=== PATIENT | female | born 1975 | race Caucasian/White ===

== ENCOUNTER 2020-08-23 09:51 | Emergency (ER) | payer MEDICAID, SELFPAY ==
--- NOTE | ~2020-08-23 | XR_ITS ---
EXAMINATION: XR CHEST CLINICAL INFORMATION: Chest symptoms, COVID+ COMPARISON: 2 view chest 12/09/2010 TECHNIQUE: Portable upright AP view of the chest was obtained. FINDINGS: There is coarsening bronchovascular markings right chest with scattered predominantly bronchovascular groundglass opacities. No confluent airspace consolidation. No pleural effusion. The heart is within normal size. The vascularity is normal. The visualized hilar and mediastinal contours and bony structures are unremarkable. No pneumothorax or definite pneumomediastinum. XR/XR chest 1V IMPRESSION: Scattered groundglass opacities right chest which may be associated with atypical/viral pneumonia. No effusion.
[2020-08-23 10:06] VITALS: BP 140/77; PULSE 85; RESP 20; TEMP 37.7; O2SAT 95; BMI 40.2
--- NOTE | 2020-08-23 10:55 | ECG_ITS ---
Test Reason : SHORTNESS OF BREATH Blood Pressure : / mmHG Vent. Rate : 082 BPM Atrial Rate : 082 BPM P-R Int : 156 ms QRS Dur : 082 ms QT Int : 330 ms P-R-T Axes : 058 004 088 degrees QTc Int : 385 ms Normal sinus rhythm Biatrial enlargement Left ventricular hypertrophy Nonspecific T wave abnormality Abnormal ECG When compared to the previous EKG of No significant changes seen Referred By: Gabby Barros Electronically Signed By:AUGUSTINE LUCERO MD
[2020-08-23] MEDS: Acetaminophen 325 MG TABLET 975 MG PO (11:48)
[2020-08-23] MEDS: 0.9 % Sodium Chloride 1,000 ML 999 ML IVCONT (11:49)
[2020-08-23 11:53] LABS: Hematocrit 38.8 % (37-47); Hemoglobin 12.2 g/dl (12.0-16.0); Imm Gran Abs Auto 0.01 X10*3/uL (0.00-0.03); Imm Gran Pct Auto 0.3 % (0.0-0.4); Lymphocytes Absolute Auto 0.5 X10*3/uL (1.2-4.9); Lymphocytes Percent Auto 13.3 % (20-40); MANUAL DIFF FLAG SCAN; Mean Corpuscular HGB Conc 31.4 g/dl (31.0-35.0); Mean Corpuscular Hemoglobin 28.1 pg (27.0-33.0); Mean Corpuscular Volume 89.4 fL (80-98); Mean Platelet Volume 12.4 fL (9.4-12.3); Monocytes Absolute Auto 0.3 X10*3/uL (0.1-1.2); Neutrophils Absolute Auto 3.2 X10*3/uL (2.0-8.3); Neutrophils Percent Auto 79.4 % (45-73); Platelet Count 179 X10*3/uL (160-400); Red Blood Count 4.34 X10*6/uL (4.20-5.50); Red Cell Distribution Width 13.5 % (11.0-16.0); SCAN SMEAR FLAG 1
[2020-08-23 12:02] LABS: INTERNATIONAL NORM RATIO 1.2 (0.9-1.1); Prothrombin Time 14.7 SEC (10.8-13.0)
[2020-08-23 12:09] LABS: D Dimer < 200 NG/ML
[2020-08-23 12:18] LABS: SLIDE REVIEW VERIFIED
[2020-08-23 12:28] LABS: B Type Natriuretic Peptide 25 pg/mL (<100)
[2020-08-23 12:30] LABS: Alanine Aminotransferase 38 U/L (0-31); Albumin Level 4.3 g/dL (3.5-5.0); Alkaline Phosphatase 57 U/L (39-117); Aspartate Amino Transferase 46 U/L (5-31); Bilirubin Direct 0.2 mg/dL (0.0-0.5); Bilirubin Total 0.4 mg/dL (0.0-1.0); Magnesium 2.2 mg/dL (1.6-2.6); Total Protein 8.4 g/dL (6.5-8.0)
[2020-08-23 12:34] LABS: Alanine Aminotransferase 38 U/L (0-31); Albumin Level 4.3 g/dL (3.5-5.0); Alkaline Phosphatase 58 U/L (39-117); Anion Gap 12 (12-20); Aspartate Amino Transferase 47 U/L (5-31); Bilirubin Total 0.4 mg/dL (0.0-1.0); Blood Urea Nitrogen 8 mg/dL (9-16); Calcium 9.1 mg/dL (8.4-10.2); Carbon Dioxide 27 mmol/L (22-29); Chloride 100 mmol/L (96-108); Creatinine Clr Calc Pharmacy 104.6; Estimated Glomerular Filt Rate > 60; Glucose Random 119 mg/dL (60-115); Potassium 4.3 mmol/L (3.3-5.1); Sodium 135 mmol/L (135-145); Total Protein 8.4 g/dL (6.5-8.0)
[2020-08-23 12:59] LABS: Procalcitonin 0.06 ng/mL
[2020-08-23 13:24] LABS: COVID-19 Test Positive (Negative)
--- NOTE | 2020-08-23 13:49 | ED_ITS ---
HPI - URI/Sore Throat General Chief Complaint: General Medical <CAYLA Garcia - Last Filed: 08/23/20 14:42> Stated Complaint: covid check <CAYLA Garcia - Last Filed: 08/23/20 14:42> Time Seen by Provider: 08/23/20 10:28 <CAYLA Garcia - Last Filed: 08/23/20 14:42> Source: patient <CAYLA Garcia Last Filed: 08/23/20 14:42> Mode of arrival: ambulatory <CAYLA Garcia - Last Filed: 08/23/20 14:42> Limitations: language barrier ([place]adian-speaking) <CAYLA Garcia Last Filed: 08/23/20 14:42> History of Present Illness HPI Narrative: 45-year-old female with a past medical history of migraine headaches presenting to the ED with complaints of intermittent migraine headaches that she describes as pressure and sensation which is similar to her prior migraine headaches, body aches and subjective fevers for the past few days worse today. Reports that her was positive for COVID and yesterday of possible COVID or a pulmonary embolism/[place]. She is concerned due to she is also having shortness of breath although does not have a cough. Denies any dizziness, lightheadedness, changes in vision, nasal congestion/runny nose, sore throat, chest pain, orthopnea, back pain, nausea/vomiting, abdominal pain, diarrhea, constipation, black or bloody stools, dysuria, hematuria, abnormal vaginal discharge or any other symptoms complaints or concerns at this time. <CAYLA Garcia - Last Filed: 08/23/20 14:42> Related Data Home Medications: Home Medications Medication Instructions Recorded Confirmed ascorbic acid (vitamin C) 1 tab PO DAILY 08/26/20 08/26/20 ergocalciferol (vitamin D2) 1 cap PO QWEEK 08/26/20 08/26/20 methadone 118 mg PO DAILY 08/26/20 08/26/20 methadone [Methadone Intensol] 118 mg PO DAILY 08/27/20 08/27/20 Previous Rx's Medication Instructions Recorded acetaminophen [Tylenol Extra 1,000 mg PO QID PRN #14 tab 08/23/20 Strength] ibuprofen 800 mg PO Q8H PRN #14 tab 08/23/20 dexamethasone [Decadron] 6 mg PO DAILY #3 tab 08/31/20 <CAYLA Garcia Last Filed: 08/23/20 14:42> Allergies/Adverse Reactions: Allergies Allergy/AdvReac Type Severity Reaction Status Date / Time No Known Allergies Allergy Unknown Unverified 01/12/20 16:03 <CAYLA Garcia - Last Filed: 08/23/20 14:42> Review of Systems Review of Systems: Constitutional : + Fvers, + Chills, + Fatigues, + Malaise, No Weight loss, No Night Sweats ENT/Mouth : No Hearing loss, No Ear Pain, No Nasal Congestion, No Sinus Pain, No Hoarseness, No sore throat, No Rhinorrhea, No Swallowing Difficulty Eyes: No Eye Pain, No Swelling, No Redness, No Foreign Body, No Discharge, No Vision Changes Cardiovascular : + SOB, No Chest Pain, + Dyspnea on Exertion, No Orthopnea, No Edema, No Palpitations Respiratory : + SOB, No Cough, No Sputum, No Wheezing, No Smoke Exposure Gastrointestinal : No Nausea, No Vomiting, No Diarrhea, No Constipation, No abdominal Pain, No Hematochezia, No Melena Genitourinary : no irregular bleeding, No Dysuria, No Urinary Frequency, No Hematuria, No Urinary Incontinence, No Urgency, No Flank Pain, No Urinary Flow Changes, No Hesitancy Musculoskeletal : No joint pain, No Myalgias, No Joint Swelling Skin : No Skin Lesions, No rash Neuro : No Weakness, No Numbness, No Paresthesias, No Loss of Consciousness, No Dizziness, No Headache Psych : + Anxiety, No Panic, No Depression, No SI/HI/AH/VH, No Social Issues, Heme/Lymph: No Bruising, No Bleeding,No Lymphadenopathy Endocrine : No Polyuria, No Polydipsia, No Temperature Intolerance <CAYLA Garcia Last Filed: 08/23/20 14:42> Yes all other systems are reviewed and are negative <CAYLA Garcia Last Filed: 08/23/20 14:42> [facility] Past Medical History Attestation statement: The following information was validated with the patient. <CAYLA Garcia Last Filed: 08/23/20 14:42> Surgical History: Surgical History History of cholecystectomy Hx of section <CAYLA Garcia - Last Filed: 08/23/20 14:42> Social History Social History: Social History Household Members: Children Household Members Other:: Two children, recently Housing: Apartment Do you presently have visiting nurse or other home services: No Smoking Status: Never smoker Second Hand Smoke Exposure: No Use of substances other than those prescribed or required for medical reasons: No Substance Use Type Other:: methadone Currently Displaying Signs/Symptoms of Drug Intoxication Withdrawal: No Any prior treatment program specific to substance use: No Have you been hit, kicked, punched, or otherwise hurt by someone within the past year? If so, by whom?: No Do you feel safe in your current relationship?: Yes Is there a partner from a previous relationship who is making you feel unsafe now?: No Are you made to feel afraid or neglected: No Spiritual Healthcare Practices: Zoroastrianism Advance Directives: No Advance Directives Information Provided: No Do you have thoughts of harming others: None Do you have a plan to hurt others: No Plan Recently lost weight without trying: No Eating poorly because of decreased appetite: No Nutrition Risks: No Nutritional Risk Patient : No : No Poor oral hygiene: No service: No Current occupational status: disabled <CAYLA Garcia - Last Filed: 08/23/20 14:42> Physical Exam Vital Signs: Vital Signs: Last Vital Signs Temp 99.1 F 08/23/20 14:02 Pulse 85 08/23/20 10:06 Resp 20 08/23/20 10:06 BP 140/77 H 08/23/20 10:06 Pulse Ox 95 08/23/20 10:06 Body Mass Index 40.2 vital signs have been reviewed as normal and appeared to be correct. Blood pressure normal. Heart rate normal. Respiration rate normal. Temperature normal. Oxygen saturation normal. <CAYLA Garcia - Last Filed: 08/23/20 14:42> Vital Signs: Last Vital Signs Temp 99.1 F 08/23/20 14:02 Pulse 85 08/23/20 10:06 Resp 20 08/23/20 10:06 BP 140/77 H 08/23/20 10:06 Pulse Ox 95 08/23/20 10:06 Body Mass Index 40.2 <Kristofer Ricadro MD - Last Filed: 09/08/20 01:35> Appearance: Alert. Oriented X3. No acute distress. Head: Normal external exam. Normocephalic. Eyes: PERRLA. EOMI. Conjunctiva and sclera normal. Eyelids normal. ENT: Pharynx normal. Uvula midline. Moist mucous membranes. No trismus noted. No drooling noted. No muffled voice noted. Neck: Normal inspection. Neck supple. FROM. No adenopathy. No meningeal signs. CVS: Normal heart rate and rhythm. Heart sound normal. No murmurs noted. Pulses normal throughout. Respiratory: No respiratory distress. Painless inspiration. Breath sounds normal. No wheezes/rales/rhonchi noted. Chest nontender. No accessory muscle usage noted or decreased air movement noted. Abdomen: Soft and nontender. Nondistended. No guarding. No rigidity. Bowel sounds normal in all 4 quadrants. No distention noted. No organomegaly noted. No visible injury noted. No rebound tenderness. Negative Rovsing sign. Negative obturator's sign. Negative psoas sign. Negative Leon sign. Back: No CVA tenderness. Full range of motion noted. Skin: Skin warm and dry. Normal skin color. Normal skin turgor. No rashes/lesions/lacerations noted. Extremities: No lower extremity edema noted. Extremities exhibit normal range of motion. Extremities nontender. Neuro: Oriented X 3. No motor deficit. No sensory deficit. Reflexes normal. Normal steady gait. <CAYLA Garcia - Last Filed: 08/23/20 14:42> Course Course Course Narrative: 45-year-old female with a history of migraine headaches presenting to the ED with complaints of subjective fevers, generalized fatigue, malaise, myalgias, and shortness of breath/dyspnea on exertion for the past few days worse today. She tested negative for COVID a few days ago. Denies any other symptoms complaints or concerns. Her just a COVID yesterday possibly an [place] versus pulmonary embolism therefore patient is concern from pulmonary embolism. - on exam patient is alert and oriented x3. Not in any acute distress. Vital signs are stable and within normal limits patient is walking oxygen saturation was 92% on room air. Lungs clear to auscultation. CV RRR. Abdomen is soft nontender. Calf is nontender. No lower extremity edema is noted. - labs obtained and patient with 0 white blood cell count at 4000. AST/ALT mildly 47/38. CRP is 5.40. Total protein 8.4. Otherwise all other labs are within normal limits. D-dimer is negative. Patient unfortunately is testing positive for COVID. EKG is sinus rhythm with biatrial enlargement with left ventricular hypertrophy with nonspecific T-wave abnormalities no acute ischemic changes are noted. - patient received resources from the Care Team she denies any SI/HI/auditory visualizations thoughts of self-injury just very anxious from what she went through with her yesterday. Will DC home with antibiotics and symptomatic treatment along with instructions to return if any new or worsening symptoms and to monitor her oxygen levels especially with walking over the next few days and to return if her oxygen starts going below 90% on room air. Patient understands agrees with this plan. <CAYLA Garcia - Last Filed: 08/23/20 14:42> I have reviewed the chart <Kristofer Ricardo MD - Last Filed: 09/08/20 01:35> MDM - URI/Sore Throat Medical Records Attestation: I reviewed the patient's medical records. <CAYLA Garcia - Last Filed: 08/23/20 14:42> Lab Data Attestation: I reviewed the patient's lab results. <CAYLA Garcia - Last Filed: 08/23/20 14:42> Result diagrams: : 08/23/20 11:42 08/23/20 11:42 <CAYLA Garcia - Last Filed: 08/23/20 14:42> Labs: Lab Results 08/23/20 08/23/20 08/23/20 Range/Units 11:42 11:42 11:42 WBC 4.0 L (4.8-10.8) X10*3/uL RBC 4.34 (4.20-5.50) X10*6/uL Hgb 12.2 (12.0-16.0) g/dl Hct 38.8 (37-47) % MCV 89.4 (80-98) fL MCH 28.1 (27.0-33.0) pg MCHC 31.4 (31.0-35.0) g/dl RDW 13.5 (11.0-16.0) % Plt Count 179 (160-400) X10*3/uL MPV 12.4 H (9.4-12.3) fL Immature Gran % (Auto) 0.3 (0.0-0.4) % Neut % (Auto) 79.4 H (45-73) % Lymph % (Auto) 13.3 L (20-40) % [place] % (Auto) 7.0 (2-11) % Eos % (Auto) 0.0 (0-4) % Baso % (Auto) 0.0 (0-2) % Lymph # (Auto) 0.5 L (1.2-4.9) X10*3/uL [place] # (Auto) 0.3 (0.1-1.2) X10*3/uL Eos # (Auto) 0.0 (0.0-0.4) X10*3/uL Baso # (Auto) 0.0 (0.0-0.2) X10*3/uL Abs Immat Gran (auto) 0.01 (0.00-0.03) X10*3/uL Absolute Neuts (auto) 3.2 (2.0-8.3) X10*3/uL Absolute Nucleated RBC 0.000 (0.0-0.012) X10*3/uL Nucleated RBC % (auto) 0.0 (0.0-0.2) /100WBC Smear Tech's Comments VERIFIED Hold Purple Top SEE NOTE PT 14.7 H (10.8-13.0) SEC INR 1.2 H (0.9-1.1) D-Dimer < 200 NG/ML Sodium (135-145) mmol/L Potassium (3.3-5.1) mmol/L Chloride (96-108) mmol/L Carbon Dioxide (22-29) mmol/L Anion Gap (12-20) BUN (9-16) mg/dL Creatinine (0.5-1.4) mg/dL Estim Creat Clear Calc Estimated GFR Random Glucose (60-115) mg/dL Calcium (8.4-10.2) mg/dL Magnesium (1.6-2.6) mg/dL Ferritin (10-250) ng/mL Total Bilirubin (0.0-1.0) mg/dL Direct Bilirubin (0.0-0.5) mg/dL AST (5-31) U/L ALT (0-31) U/L Alkaline Phosphatase (39-117) U/L Lactate Dehydrogenase (122-220) U/L C-Reactive Protein (< or = 0.50) mg/dL B-Natriuretic Peptide (<100) pg/mL Total Protein (6.5-8.0) g/dL Albumin (3.5-5.0) g/dL Procalcitonin ng/mL Beta HCG, Quant mIU/mL COVID-19 ([facility]) (Negative) COVID-19 Clin Com 08/23/20 08/23/20 08/23/20 Range/Units 11:42 11:42 11:42 WBC (4.8-10.8) X10*3/uL RBC (4.20-5.50) X10*6/uL Hgb (12.0-16.0) g/dl Hct (37-47) % MCV (80-98) fL MCH (27.0-33.0) pg MCHC (31.0-35.0) g/dl RDW (11.0-16.0) % Plt Count (160-400) X10*3/uL MPV (9.4-12.3) fL Immature Gran % (Auto) (0.0-0.4) % Neut % (Auto) (45-73) % Lymph % (Auto) (20-40) % [place] % (Auto) (2-11) % Eos % (Auto) (0-4) % Baso % (Auto) (0-2) % Lymph # (Auto) (1.2-4.9) X10*3/uL [place] # (Auto) (0.1-1.2) X10*3/uL Eos # (Auto) (0.0-0.4) X10*3/uL Baso # (Auto) (0.0-0.2) X10*3/uL Abs Immat Gran (auto) (0.00-0.03) X10*3/uL Absolute Neuts (auto) (2.0-8.3) X10*3/uL Absolute Nucleated RBC (0.0-0.012) X10*3/uL Nucleated RBC % (auto) (0.0-0.2) /100WBC Smear Tech's Comments Hold Purple Top PT (10.8-13.0) SEC INR (0.9-1.1) D-Dimer NG/ML Sodium 135 (135-145) mmol/L Potassium 4.3 (3.3-5.1) mmol/L Chloride 100 (96-108) mmol/L Carbon Dioxide 27 (22-29) mmol/L Anion Gap 12 (12-20) BUN 8 L (9-16) mg/dL Creatinine 0.75 (0.5-1.4) mg/dL Estim Creat Clear Calc 104.6 Estimated GFR > 60 Random Glucose 119 H (60-115) mg/dL Calcium 9.1 (8.4-10.2) mg/dL Magnesium 2.2 (1.6-2.6) mg/dL Ferritin 161 (10-250) ng/mL Total Bilirubin 0.4 0.4 (0.0-1.0) mg/dL Direct Bilirubin 0.2 (0.0-0.5) mg/dL AST 46 H 47 H (5-31) U/L ALT 38 H 38 H (0-31) U/L Alkaline Phosphatase 57 58 (39-117) U/L Lactate Dehydrogenase 331 H (122-220) U/L C-Reactive Protein (< or = 0.50) mg/dL B-Natriuretic Peptide 25 (<100) pg/mL Total Protein 8.4 H 8.4 H (6.5-8.0) g/dL Albumin 4.3 4.3 (3.5-5.0) g/dL Procalcitonin ng/mL Beta HCG, Quant < 2 mIU/mL COVID-19 ([facility]) (Negative) COVID-19 Clin Com 08/23/20 08/23/20 08/23/20 Range/Units 11:42 11:42 13:08 WBC (4.8-10.8) X10*3/uL RBC (4.20-5.50) X10*6/uL Hgb (12.0-16.0) g/dl Hct (37-47) % MCV (80-98) fL MCH (27.0-33.0) pg MCHC (31.0-35.0) g/dl RDW (11.0-16.0) % Plt Count (160-400) X10*3/uL MPV (9.4-12.3) fL Immature Gran % (Auto) (0.0-0.4) % Neut % (Auto) (45-73) % Lymph % (Auto) (20-40) % [place] % (Auto) (2-11) % Eos % (Auto) (0-4) % Baso % (Auto) (0-2) % Lymph # (Auto) (1.2-4.9) X10*3/uL [place] # (Auto) (0.1-1.2) X10*3/uL Eos # (Auto) (0.0-0.4) X10*3/uL Baso # (Auto) (0.0-0.2) X10*3/uL Abs Immat Gran (auto) (0.00-0.03) X10*3/uL Absolute Neuts (auto) (2.0-8.3) X10*3/uL Absolute Nucleated RBC (0.0-0.012) X10*3/uL Nucleated RBC % (auto) (0.0-0.2) /100WBC Smear Tech's Comments Hold Purple Top PT (10.8-13.0) SEC INR (0.9-1.1) D-Dimer NG/ML Sodium (135-145) mmol/L Potassium (3.3-5.1) mmol/L Chloride (96-108) mmol/L Carbon Dioxide (22-29) mmol/L Anion Gap (12-20) BUN (9-16) mg/dL Creatinine (0.5-1.4) mg/dL Estim Creat Clear Calc Estimated GFR Random Glucose (60-115) mg/dL Calcium (8.4-10.2) mg/dL Magnesium (1.6-2.6) mg/dL Ferritin (10-250) ng/mL Total Bilirubin (0.0-1.0) mg/dL Direct Bilirubin (0.0-0.5) mg/dL AST (5-31) U/L ALT (0-31) U/L Alkaline Phosphatase (39-117) U/L Lactate Dehydrogenase (122-220) U/L C-Reactive Protein 5.40 H (< or = 0.50) mg/dL B-Natriuretic Peptide (<100) pg/mL Total Protein (6.5-8.0) g/dL Albumin (3.5-5.0) g/dL Procalcitonin 0.06 ng/mL Beta HCG, Quant mIU/mL COVID-19 ([facility]) Positive A (Negative) COVID-19 Clin Com See Note <CAYLA Garcia - Last Filed: 08/23/20 14:42> Lab Results 08/23/20 08/23/20 08/23/20 Range/Units 11:42 11:42 11:42 WBC 4.0 L (4.8-10.8) X10*3/uL RBC 4.34 (4.20-5.50) X10*6/uL Hgb 12.2 (12.0-16.0) g/dl Hct 38.8 (37-47) % MCV 89.4 (80-98) fL MCH 28.1 (27.0-33.0) pg MCHC 31.4 (31.0-35.0) g/dl RDW 13.5 (11.0-16.0) % Plt Count 179 (160-400) X10*3/uL MPV 12.4 H (9.4-12.3) fL Immature Gran % (Auto) 0.3 (0.0-0.4) % Neut % (Auto) 79.4 H (45-73) % Lymph % (Auto) 13.3 L (20-40) % [place] % (Auto) 7.0 (2-11) % Eos % (Auto) 0.0 (0-4) % Baso % (Auto) 0.0 (0-2) % Lymph # (Auto) 0.5 L (1.2-4.9) X10*3/uL [place] # (Auto) 0.3 (0.1-1.2) X10*3/uL Eos # (Auto) 0.0 (0.0-0.4) X10*3/uL Baso # (Auto) 0.0 (0.0-0.2) X10*3/uL Abs Immat Gran (auto) 0.01 (0.00-0.03) X10*3/uL Absolute Neuts (auto) 3.2 (2.0-8.3) X10*3/uL Absolute Nucleated RBC 0.000 (0.0-0.012) X10*3/uL Nucleated RBC % (auto) 0.0 (0.0-0.2) /100WBC Smear Tech's Comments VERIFIED Hold Purple Top SEE NOTE PT 14.7 H (10.8-13.0) SEC INR 1.2 H (0.9-1.1) D-Dimer < 200 NG/ML Sodium (135-145) mmol/L Potassium (3.3-5.1) mmol/L Chloride (96-108) mmol/L Carbon Dioxide (22-29) mmol/L Anion Gap (12-20) BUN (9-16) mg/dL Creatinine (0.5-1.4) mg/dL Estim Creat Clear Calc Estimated GFR Random Glucose (60-115) mg/dL Calcium (8.4-10.2) mg/dL Magnesium (1.6-2.6) mg/dL Ferritin (10-250) ng/mL Total Bilirubin (0.0-1.0) mg/dL Direct Bilirubin (0.0-0.5) mg/dL AST (5-31) U/L ALT (0-31) U/L Alkaline Phosphatase (39-117) U/L Lactate Dehydrogenase (122-220) U/L C-Reactive Protein (< or = 0.50) mg/dL B-Natriuretic Peptide (<100) pg/mL Total Protein (6.5-8.0) g/dL Albumin (3.5-5.0) g/dL Procalcitonin ng/mL Beta HCG, Quant mIU/mL COVID-19 ([facility]) (Negative) COVID-19 Clin Com 08/23/20 08/23/20 08/23/20 Range/Units 11:42 11:42 11:42 WBC (4.8-10.8) X10*3/uL RBC (4.20-5.50) X10*6/uL Hgb (12.0-16.0) g/dl Hct (37-47) % MCV (80-98) fL MCH (27.0-33.0) pg MCHC (31.0-35.0) g/dl RDW (11.0-16.0) % Plt Count (160-400) X10*3/uL MPV (9.4-12.3) fL Immature Gran % (Auto) (0.0-0.4) % Neut % (Auto) (45-73) % Lymph % (Auto) (20-40) % [place] % (Auto) (2-11) % Eos % (Auto) (0-4) % Baso % (Auto) (0-2) % Lymph # (Auto) (1.2-4.9) X10*3/uL [place] # (Auto) (0.1-1.2) X10*3/uL Eos # (Auto) (0.0-0.4) X10*3/uL Baso # (Auto) (0.0-0.2) X10*3/uL Abs Immat Gran (auto) (0.00-0.03) X10*3/uL Absolute Neuts (auto) (2.0-8.3) X10*3/uL Absolute Nucleated RBC (0.0-0.012) X10*3/uL Nucleated RBC % (auto) (0.0-0.2) /100WBC Smear Tech's Comments Hold Purple Top PT (10.8-13.0) SEC INR (0.9-1.1) D-Dimer NG/ML Sodium 135 (135-145) mmol/L Potassium 4.3 (3.3-5.1) mmol/L Chloride 100 (96-108) mmol/L Carbon Dioxide 27 (22-29) mmol/L Anion Gap 12 (12-20) BUN 8 L (9-16) mg/dL Creatinine 0.75 (0.5-1.4) mg/dL Estim Creat Clear Calc 104.6 Estimated GFR > 60 Random Glucose 119 H (60-115) mg/dL Calcium 9.1 (8.4-10.2) mg/dL Magnesium 2.2 (1.6-2.6) mg/dL Ferritin 161 (10-250) ng/mL Total Bilirubin 0.4 0.4 (0.0-1.0) mg/dL Direct Bilirubin 0.2 (0.0-0.5) mg/dL AST 46 H 47 H (5-31) U/L ALT 38 H 38 H (0-31) U/L Alkaline Phosphatase 57 58 (39-117) U/L Lactate Dehydrogenase 331 H (122-220) U/L C-Reactive Protein (< or = 0.50) mg/dL B-Natriuretic Peptide 25 (<100) pg/mL Total Protein 8.4 H 8.4 H (6.5-8.0) g/dL Albumin 4.3 4.3 (3.5-5.0) g/dL Procalcitonin ng/mL Beta HCG, Quant < 2 mIU/mL COVID-19 ([facility]) (Negative) COVID-19 Clin Com 08/23/20 08/23/20 08/23/20 Range/Units 11:42 11:42 13:08 WBC (4.8-10.8) X10*3/uL RBC (4.20-5.50) X10*6/uL Hgb (12.0-16.0) g/dl Hct (37-47) % MCV (80-98) fL MCH (27.0-33.0) pg MCHC (31.0-35.0) g/dl RDW (11.0-16.0) % Plt Count (160-400) X10*3/uL MPV (9.4-12.3) fL Immature Gran % (Auto) (0.0-0.4) % Neut % (Auto) (45-73) % Lymph % (Auto) (20-40) % [place] % (Auto) (2-11) % Eos % (Auto) (0-4) % Baso % (Auto) (0-2) % Lymph # (Auto) (1.2-4.9) X10*3/uL [place] # (Auto) (0.1-1.2) X10*3/uL Eos # (Auto) (0.0-0.4) X10*3/uL Baso # (Auto) (0.0-0.2) X10*3/uL Abs Immat Gran (auto) (0.00-0.03) X10*3/uL Absolute Neuts (auto) (2.0-8.3) X10*3/uL Absolute Nucleated RBC (0.0-0.012) X10*3/uL Nucleated RBC % (auto) (0.0-0.2) /100WBC Smear Tech's Comments Hold Purple Top PT (10.8-13.0) SEC INR (0.9-1.1) D-Dimer NG/ML Sodium (135-145) mmol/L Potassium (3.3-5.1) mmol/L Chloride (96-108) mmol/L Carbon Dioxide (22-29) mmol/L Anion Gap (12-20) BUN (9-16) mg/dL Creatinine (0.5-1.4) mg/dL Estim Creat Clear Calc Estimated GFR Random Glucose (60-115) mg/dL Calcium (8.4-10.2) mg/dL Magnesium (1.6-2.6) mg/dL Ferritin (10-250) ng/mL Total Bilirubin (0.0-1.0) mg/dL Direct Bilirubin (0.0-0.5) mg/dL AST (5-31) U/L ALT (0-31) U/L Alkaline Phosphatase (39-117) U/L Lactate Dehydrogenase (122-220) U/L C-Reactive Protein 5.40 H (< or = 0.50) mg/dL B-Natriuretic Peptide (<100) pg/mL Total Protein (6.5-8.0) g/dL Albumin (3.5-5.0) g/dL Procalcitonin 0.06 ng/mL Beta HCG, Quant mIU/mL COVID-19 ([facility]) Positive A (Negative) COVID-19 Clin Com See Note <Kristofer Ricardo MD - Last Filed: 09/08/20 01:35> Imaging Data Chest x-ray: Attestation: I personally reviewed and interpreted this imaging study as follows: <CAYLA Garcia - Last Filed: 08/23/20 14:42> Radiologist's impression: FINDINGS: There is coarsening bronchovascular markings right chest with scattered predominantly bronchovascular groundglass opacities. No confluent airspace consolidation. No pleural effusion. The heart is within normal size. The vascularity is normal. The visualized hilar and mediastinal contours and bony structures are unremarkable. No pneumothorax or definite pneumomediastinum. XR/XR chest 1V IMPRESSION: Scattered groundglass opacities right chest which may be associated with atypical/viral pneumonia. No effusion. <CAYLA Garcia - Last Filed: 08/23/20 14:42> ECG Data Attestation: I personally reviewed and interpreted this ECG as follows: <CAYLA Garcia - Last Filed: 08/23/20 14:42> ECG interpretation date: 08/23/20 <CAYLA Garcia Last Filed: 08/23/20 14:42> ECG interpretation time: 11:20 <CAYLA Garcia - Last Filed: 08/23/20 14:42> Interpretation: Normal sinus rhythm and a tricky rate of 82 with biatrial enlargement with left ventricular hypertrophy with nonspecific T-wave abnormality no acute ischemic changes noted. Similar when compared to prior EKG on 09/30/2017. <CAYLA Garcia Last Filed: 08/23/20 14:42> Discharge Plan Discharge Clinical Impression: COVID-19 <CAYLA Garcia - Last Filed: 08/23/20 14:42> Patient Disposition: Home, Self-Care <CAYLA Garcia Last Filed: 08/23/20 14:42> Instructions: COVID-19 (Coronavirus Disease 2019) (ED) <CAYLA Garcia - Last Filed: 08/23/20 14:42> Additional Instructions: You are positive for COVID-19. At this time you will be okay for discharge. Please plan for self quarantine for up to 14 days. Do not expose yourself to others. You may not go to work. If testing does come back negative you may return to activities as long as you are no longer having any symptoms for at least 3 days. Please continue to follow cold instructions and wash your hands frequently. You may take Tylenol as directed on the bottle for pain or fever. Patient seen in the emergency department on 08/23/2020 and should be excused from work until negative test results AND until 72 hours without any symptoms AND at least 10 days have passed since symptoms first appeared or since last exposure to COVID-19 positive patient CDC Guidelines for home isolation: - Stay away from others - WEAR A MASK if you are sick AND STAY HOME - Cover your mouth and nose with a tissue when you cough or sneeze. Dispose of tissues in a lined trash can and wash your hands immediately with soap and water for at least 20 seconds. If soap and water are not available, clean hands with alcohol-based hand drapery and upholstery estimator that contains at least 60% alcohol. - Clean your hands often with soap and water for at least 20 seconds - Avoid touching your eyes, nose and mouth with unwashed hands - Do not share dishes, drinking glasses, cups, eating utensils, towels, or bedding with other people in your home. After using these items, wash them thoroughly with soap and water or put in the endoscopy specialty technician. - Clean high-touch surfaces in your isolation area ( sick room and bathroom) every day; let a caregiver clean and disinfect high-touch surfaces in other areas of the home. Clean the area or item with soap and water or another detergent if it is dirty. Then, use a household disinfectant. - Limit contact with pets and animals: If you must care for a pet, wash your hands before and after interacting with them). <CAYLA Garcia - Last Filed: 08/23/20 14:42> Prescriptions: New ibuprofen 800 mg tablet 800 mg PO Q8H PRN (Reason: pain) Qty: 14 RF: 0 acetaminophen [Tylenol Extra Strength] 500 mg tablet 1,000 mg PO QID PRN (Reason: fever or pain) Qty: 14 RF: 0 No Action ascorbic acid (vitamin C) 250 mg tablet 1 tab PO DAILY RF: 0 ergocalciferol (vitamin D2) 1,250 mcg (50,000 unit) capsule 1 cap PO QWEEK RF: 0 methadone 10 mg/mL Syringe 118 mg PO DAILY RF: 0 methadone [Methadone Intensol] 10 mg/mL Concentrate 118 mg PO DAILY RF: 0 dexamethasone [Decadron] 6 mg tablet 6 mg PO DAILY Qty: 3 RF: 0 <CAYLA Garcia - Last Filed: 08/23/20 14:42> Referrals: Alessandra Díaz DO [Primary Care Provider] - 2 days <CAYLA Garcia - Last Filed: 08/23/20 14:42> Stand Alone Forms: Work/School Release <CAYLA Garcia - Last Filed: 08/23/20 14:42> Interventions: ED Discharge Assessment Last Done: 08/23/20 14:45 <CAYLA Garcia - Last Filed: 08/23/20 14:42> Discharge Date/Time: 08/23/20 15:06 <CAYLA Garcia - Last Filed: 08/23/20 14:42> Print Language: Barbadian <CAYLA Garcia - Last Filed: 08/23/20 14:42>
[2020-08-23 14:02] VITALS: TEMP 37.3
--- NOTE | 2020-08-23 14:02 | PC.NURSE ---
home obtained for who yesterday [facility] in [place], patient also spoke with the care team to get resources after discharge.
[2020-08-23 14:12] LABS: Lactate Dehydrogenase 331 U/L (122-220)
[2020-08-23 14:23] LABS: Ferritin 161 ng/mL (10-250); HCG Quantitative < 2 mIU/mL
--- NOTE | 2020-08-23 14:33 | MHC.CARE ---
CARE team received consult for pt located in the isolation area of the ED (pt is covid positive and children with her are also covid positive) due to grief. Pts arrived to [facility] yesterday after EMS called to the home due to low O2 levels and illness related to his COVID dx. Pt prior to arrival. Pt and teenage children arrived to [facility] today seeking testing and pt was feeling unwell. Pt was given fluids and full examination with added testing. Pt was seen by CARE as an added support. Pt presents as overall unwell and stated she feels sick in addition to feeling grief and most acutely feelings of shock in her their sudden loss. Pt stated she still can't believe it that he because they were talking right before he suddenly became stricken and when EMS arrived he had passed out and subsequently . Pts family has been quarantined at home for several weeks and the children have tested COVID positive and pt feels she is positive based on her sxs but was unable to go to her test scheduled the day of her husbands passing. Pt was tested here and was positive. Pt is open to the idea of counseling but not able at this current time based on her being sick as well as planning her husbands . Pt was given lists of resources and planned to follow up specifically with CC. Pt is aware of how to reach crisis if she finds she is struggling as well as returning to [facility]. Pt stated she has a lot of support and family nearby and feels safe and supported. The challenge currently is that being in quarantine while grieving therefore pt is using online and phone visits often. Pts kids are pleasantly on their phones and declined further need for added supports, also currently asymptomatic. Family provided snacks and fluids as requested.
== END 2020-08-23 15:06 | disposition home or self-care (01) ==
PROVIDERS: Physician Assistant Medical; Emergency Provider Emergency Medicine; PCP Family Medicine
DX: U07.1 COVID-19 (principal); Z79.899 Other long term (current) drug therapy
CPT/HCPCS: 36415; 71045; 80053; 80076; 82248; 82728; 83615; 83735; 83880; 84145; 84702; 85025; 85379; 85610; 86140; 87635; 93005; 99283

== ENCOUNTER 2020-08-26 09:17 | Inpatient (IN) | payer MEDICAID, SELFPAY ==
--- NOTE | ~2020-08-26 | XR_ITS ---
EXAMINATION: XR CHEST CLINICAL INFORMATION: Hypoxia COMPARISON: Previous chest x-ray 08/23/2020 TECHNIQUE: Frontal view of the chest was obtained. FINDINGS: The cardiac and mediastinal contours are normal. There is bilateral patchy airspace disease suggestive of pneumonia. This appears slightly increased in the right lung compared to previous chest x-ray 08/23/2020. There is no pleural effusion or pneumothorax. No acute bone abnormality is seen. XR/XR chest 1V IMPRESSION: Bilateral pneumonia, question slightly increased on the right compared to 08/23/2020 exam.
[2020-08-26 09:24] VITALS: BP 153/72; PULSE 98; RESP 23; TEMP 37.1; O2SAT 87; BMI 39.9
--- NOTE | 2020-08-26 09:36 | PC.NURSE ---
PLACED ON 2L 02 NOW 98%
--- NOTE | 2020-08-26 11:11 | ECG_ITS ---
Test Reason : WEAKNESS Blood Pressure : / mmHG Vent. Rate : 082 BPM Atrial Rate : 082 BPM P-R Int : 154 ms QRS Dur : 086 ms QT Int : 338 ms P-R-T Axes : 048 010 064 degrees QTc Int : 394 ms Normal sinus rhythm Biatrial enlargement Left ventricular hypertrophy Nonspecific T wave abnormality Abnormal ECG When compared with ECG of 23-AUG-2020 11:20, Nonspecific T wave abnormality now evident in Inferior leads Referred By: Carlito Keenan Electronically Signed By:TA HARDIN
--- NOTE | 2020-08-26 11:37 | ED.URI ---
HPI - URI/Sore Throat General Chief Complaint: Upper Respiratory Symptoms Stated Complaint: covid symptoms - covid+ Time Seen by Provider: 08/26/20 11:11 Source: patient Mode of arrival: ambulatory Limitations: no limitations History of Present Illness HPI Narrative: 45 years old female recently diagnosed with COVID infection, patient having pulse oximetry at home showing low oxygen at home in the low 80s, patient also feels short of breath with exertion. No chest pain, no fever, no chills. Related Data Previous Rx's Medication Instructions Recorded acetaminophen [Tylenol Extra 1,000 mg PO QID PRN #14 tab 08/23/20 Strength] albuterol sulfate 1 inh INHALATION QID PRN #8.5 g 08/23/20 azithromycin See Rx Instructions .ROUTE 08/23/20 .COMPLEX #6 tab ibuprofen 800 mg PO Q8H PRN #14 tab 08/23/20 lorazepam [Ativan] 1 mg PO TID PRN #10 tab 08/23/20 Allergies Allergy/AdvReac Type Severity Reaction Status Date / Time No Known Allergies Allergy Unknown Unverified 01/12/20 16:03 Review of Systems Review of Systems: All other systems are reviewed and are negative Constitutional: Reports as per HPI and Reports no additional constitutional complaints Eyes: Reports as per HPI and Reports no additional eye complaints Reports system reviewed and no additional complaints, except as documented Cardiovascular: Reports as per HPI and Reports no additional cardiovascular complaints Respiratory: Reports as per HPI and Reports no additional respiratory complaints Gastrointestinal: Reports as per HPI and Reports no additional gastrointestinal complaints Genitourinary: Reports no additional female genitourinary complaints Musculoskeletal: Reports no additional musculoskeletal complaints Skin/Breast: Reports system reviewed and no additional complaints, except as docu Psychiatric: Reports no additional psychiatric complaints Endocrine: Reports no additional endocrine complaints Hematologic/Lymphatic: Reports no additional hematologic/lymphatic complaints Allergic/Immunologic: Reports no additional allergic/immunologic complaints Reports system reviewed and no additional complaints, except as documented and Reports Abnormal speech present [facility] Past Medical History Surgical History History of cholecystectomy Hx of section Social History Social History Advance Directives: No Advance Directives Information Provided: No Physical Exam Vital Signs: Vital Signs: Last Vital Signs Temp 98.7 F 05/02/21 09:24 Pulse 98 08/26/20 09:24 Resp 23 H 08/26/20 09:24 BP 153/72 H 08/26/20 09:24 Pulse Ox 87 L 08/26/20 09:24 Body Mass Index 39.9 Vital signs have been reviewed as appeared to be correct. Blood pressure normal. Heart rate normal. Respiration rate normal. Temperature normal. Oxygen saturation normal. Appearance: Alert. Oriented X3. No acute distress. Head: Normal external exam. Normocephalic. Atraumatic. No Romero signs noted. No raccoon eyes noted Eyes: PERRLA. EOMI. Conjunctiva and sclera normal. Eyelids normal. ENT: TM's Normal. Pharynx normal. Uvula midline. Moist mucous membranes. No trismus noted. No drooling noted. No muffled voice noted. Neck: Normal inspection. Neck supple. FROM. No adenopathy. Thyroid Normal. No meningeal signs. No neck mass noted. CVS: Normal heart rate and rhythm. Heart sound normal. No murmurs noted. Pulses normal throughout. Respiratory: No respiratory distress. Painless inspiration. Breath sounds normal. No wheezes/rales/rhonchi noted. Chest nontender. No accessory muscle usage noted or decreased air movement noted. Abdomen: Soft and nontender. Bowel sounds normal in all 4 quadrants. No distention noted. No organomegaly noted. No visible injury noted. Back: No CVA tenderness. Full range of motion noted. Skin: Skin warm and dry. Normal skin color. Normal skin turgor. No rashes/lesions/lacerations noted. Extremities: No lower extremity edema. Extremities exhibit normal range of motion. Extremities nontender. Neuro: Oriented X 3. No motor deficit. No sensory deficit. Reflexes normal. Course Course Course Narrative: Assessment and plan. 45-year-old female recently diagnosed with COVID found to be hypoxic at home, patient while in the emergency department required 2 L of oxygen via nasal cannula keeping her O2 in the low 90s, chest x-ray showing bilateral pneumonia will cover with Zithromax. MDM - URI/Sore Throat Lab Data Attestation: I reviewed the patient's lab results. Result diagrams: 08/26/20 11:47 08/26/20 11:47 Labs: Lab Results 08/26/20 08/26/20 08/26/20 Range/Units 11:47 11:47 11:47 WBC 4.3 L (4.8-10.8) X10*3/uL RBC 4.61 (4.20-5.50) X10*6/uL Hgb 13.0 (12.0-16.0) g/dl Hct 41.3 (37-47) % MCV 89.6 (80-98) fL MCH 28.2 (27.0-33.0) pg MCHC 31.5 (31.0-35.0) g/dl RDW 13.7 (11.0-16.0) % Plt Count 236 D (160-400) X10*3/uL MPV 11.8 (9.4-12.3) fL Immature Gran % (Auto) 0.5 H (0.0-0.4) % Neut % (Auto) 74.9 H (45-73) % Lymph % (Auto) 18.1 L (20-40) % [place] % (Auto) 6.5 (2-11) % Eos % (Auto) 0.0 (0-4) % Baso % (Auto) 0.0 (0-2) % Lymph # (Auto) 0.8 L (1.2-4.9) X10*3/uL [place] # (Auto) 0.3 (0.1-1.2) X10*3/uL Eos # (Auto) 0.0 (0.0-0.4) X10*3/uL Baso # (Auto) 0.0 (0.0-0.2) X10*3/uL Abs Immat Gran (auto) 0.02 (0.00-0.03) X10*3/uL Absolute Neuts (auto) 3.2 (2.0-8.3) X10*3/uL Absolute Nucleated RBC 0.000 (0.0-0.012) X10*3/uL Nucleated RBC % (auto) 0.0 (0.0-0.2) /100WBC Sodium 140 (135-145) mmol/L Potassium 4.2 (3.3-5.1) mmol/L Chloride 100 (96-108) mmol/L Carbon Dioxide 32 H (22-29) mmol/L Anion Gap 12 (12-20) BUN 7 L (9-16) mg/dL Creatinine 0.75 (0.5-1.4) mg/dL Estim Creat Clear Calc 104.1 Estimated GFR > 60 Random Glucose 91 (60-115) mg/dL Calcium 9.3 (8.4-10.2) mg/dL Total Bilirubin 0.3 (0.0-1.0) mg/dL Direct Bilirubin 0.2 (0.0-0.5) mg/dL AST 44 H (5-31) U/L ALT 39 H (0-31) U/L Alkaline Phosphatase 56 (39-117) U/L B-Natriuretic Peptide 18 (<100) pg/mL Total Protein 8.4 H (6.5-8.0) g/dL Albumin 4.3 (3.5-5.0) g/dL Lipase 36 (8-78) U/L Urine Color Urine Appearance Urine pH (5.0-8.0) Ur Specific [place] (1.005-1.025) Urine Protein (NEG-TRACE) MG/DL Urine Glucose (UA) (NEG) MG/DL Urine Ketones (NEG) MG/DL Urine Blood (NEG) Urine Nitrite (NEG) Ur Leukocyte Esterase (NEG) Urine RBC (0) /HPF Urine WBC (0-4) /HPF Ur Squamous Epith Cells /LPF Urine Bacteria /LPF Urine Mucus /LPF COVID-19 (WANDA) (Negative) COVID-19 Clin Com 08/26/20 08/26/20 Range/Units 11:47 11:52 WBC (4.8-10.8) X10*3/uL RBC (4.20-5.50) X10*6/uL Hgb (12.0-16.0) g/dl Hct (37-47) % MCV (80-98) fL MCH (27.0-33.0) pg MCHC (31.0-35.0) g/dl RDW (11.0-16.0) % Plt Count (160-400) X10*3/uL MPV (9.4-12.3) fL Immature Gran % (Auto) (0.0-0.4) % Neut % (Auto) (45-73) % Lymph % (Auto) (20-40) % [place] % (Auto) (2-11) % Eos % (Auto) (0-4) % Baso % (Auto) (0-2) % Lymph # (Auto) (1.2-4.9) X10*3/uL [place] # (Auto) (0.1-1.2) X10*3/uL Eos # (Auto) (0.0-0.4) X10*3/uL Baso # (Auto) (0.0-0.2) X10*3/uL Abs Immat Gran (auto) (0.00-0.03) X10*3/uL Absolute Neuts (auto) (2.0-8.3) X10*3/uL Absolute Nucleated RBC (0.0-0.012) X10*3/uL Nucleated RBC % (auto) (0.0-0.2) /100WBC Sodium (135-145) mmol/L Potassium (3.3-5.1) mmol/L Chloride (96-108) mmol/L Carbon Dioxide (22-29) mmol/L Anion Gap (12-20) BUN (9-16) mg/dL Creatinine (0.5-1.4) mg/dL Estim Creat Clear Calc Estimated GFR Random Glucose (60-115) mg/dL Calcium (8.4-10.2) mg/dL Total Bilirubin (0.0-1.0) mg/dL Direct Bilirubin (0.0-0.5) mg/dL AST (5-31) U/L ALT (0-31) U/L Alkaline Phosphatase (39-117) U/L B-Natriuretic Peptide (<100) pg/mL Total Protein (6.5-8.0) g/dL Albumin (3.5-5.0) g/dL Lipase (8-78) U/L Urine Color YELLOW Urine Appearance HAZY Urine pH 6.5 (5.0-8.0) Ur Specific [place] 1.025 (1.005-1.025) Urine Protein 2+ H (NEG-TRACE) MG/DL Urine Glucose (UA) NEG (NEG) MG/DL Urine Ketones 15 (NEG) MG/DL Urine Blood NEG (NEG) Urine Nitrite NEG (NEG) Ur Leukocyte Esterase NEG (NEG) Urine RBC 0 (0) /HPF Urine WBC 0 (0-4) /HPF Ur Squamous Epith Cells 2+ /LPF Urine Bacteria TRACE /LPF Urine Mucus TRACE /LPF COVID-19 (WANDA) Positive A (Negative) COVID-19 Clin Com See Note Imaging Data Chest x-ray: Radiologist's impression: Bilateral pneumonia, question slightly increased on the right compared to 08/23/2020 exam. Discharge Plan Discharge Clinical Impression: COVID-19 Patient Disposition: Admitted As Inpatient
[2020-08-26 12:02] LABS: MANUAL DIFF FLAG NO
[2020-08-26 12:04] LABS: Hematocrit 41.3 % (37-47); Imm Gran Abs Auto 0.02 X10*3/uL (0.00-0.03); Imm Gran Pct Auto 0.5 % (0.0-0.4); Lymphocytes Absolute Auto 0.8 X10*3/uL (1.2-4.9); Lymphocytes Percent Auto 18.1 % (20-40); Mean Corpuscular HGB Conc 31.5 g/dl (31.0-35.0); Mean Corpuscular Hemoglobin 28.2 pg (27.0-33.0); Mean Corpuscular Volume 89.6 fL (80-98); Mean Platelet Volume 11.8 fL (9.4-12.3); Monocytes Absolute Auto 0.3 X10*3/uL (0.1-1.2); Monocytes Percent Auto 6.5 % (2-11); Neutrophils Absolute Auto 3.2 X10*3/uL (2.0-8.3); Neutrophils Percent Auto 74.9 % (45-73); Platelet Count 236 X10*3/uL (160-400); Red Blood Count 4.61 X10*6/uL (4.20-5.50); Red Cell Distribution Width 13.7 % (11.0-16.0); White Blood Count 4.3 X10*3/uL (4.8-10.8)
[2020-08-26 12:05] LABS: Glucose Urine UA NEG (NEG); Leukocyte Esterase Urine NEG (NEG); Nitrite Urine NEG (NEG); PH 6.5 (5.0-8.0); Specific Gravity - Urine 1.025 (1.005-1.025); Urine Blood NEG (NEG); Urine Ketones 15 MG/DL (NEG); Urine Protein 2+ MG/DL (NEG-TRACE)
[2020-08-26 12:07] LABS: Appearance Urine HAZY; Color Urine YELLOW
[2020-08-26 12:13] LABS: IDNOW Serial# 9DD0AD1C
[2020-08-26 12:14] LABS: Bacteria Urine TRACE /LPF; Mucus Urine TRACE /LPF; RBC Urine 0 /HPF (0); Squamous Epithelial Cell Urine 2+ /LPF; WBC Urine 0 /HPF (0-4)
[2020-08-26 12:15] LABS: COVID-19 Test Positive (Negative)
[2020-08-26 12:32] LABS: Alanine Aminotransferase 39 U/L (0-31); Albumin Level 4.3 g/dL (3.5-5.0); Alkaline Phosphatase 56 U/L (39-117); Anion Gap 12 (12-20); Aspartate Amino Transferase 44 U/L (5-31); Bilirubin Direct 0.2 mg/dL (0.0-0.5); Bilirubin Total 0.3 mg/dL (0.0-1.0); Blood Urea Nitrogen 7 mg/dL (9-16); Calcium 9.3 mg/dL (8.4-10.2); Carbon Dioxide 32 mmol/L (22-29); Chloride 100 mmol/L (96-108); Creatinine Clr Calc Pharmacy 104.1; Estimated Glomerular Filt Rate > 60; Glucose Random 91 mg/dL (60-115); Lipase 36 U/L (8-78); Potassium 4.2 mmol/L (3.3-5.1); Sodium 140 mmol/L (135-145); Total Protein 8.4 g/dL (6.5-8.0)
[2020-08-26 12:35] LABS: B Type Natriuretic Peptide 18 pg/mL (<100)
[2020-08-26 13:32] LABS: Lactic Acid 0.9 mmol/L (0.5-2.0)
[2020-08-26] MEDS: Azithromycin 500 MG in 0.9 % Sodium Chloride 250 ML 125 MG IV (13:36)
[2020-08-26] MEDS: ondansetron HCL 4 MG/2 ML VIAL IVPUSH (13:36)
--- NOTE | 2020-08-26 14:21 | P.HPHOSP_ITS ---
History of Present Illness Date of Service: 08/26/20 45-year-old female obese with no significant past medical history who has been sick with cold symptoms were about a week and she was tested on August 23 was positive and has been treated with azithromycin. Today she comes to the emergency room complaining by increasing body aches and shortness of breath and is found to be hypoxic with oxygen saturation of 87% on room air and that has receive a azithromycin in the emergency room also. She has been admitted because of acute hypoxic respiratory failure. Review of Systems Review of Systems: Gen: no fever Resp: +sob, no cough CV: no chest, no TELLO, no leg edema GI: No n/v, no abd pain Neuro: No confusion PMFSH Family history: reviewed and not pertinent Surgical History History of cholecystectomy Hx of section Social History Advance Directives: No Advance Directives Information Provided: No Meds Allergies Allergy/AdvReac Type Severity Reaction Status Date / Time No Known Allergies Allergy Unknown Unverified 01/12/20 16:03 Active Medications: Current Medications Generic Name Dose Route Start Last Admin Trade Name Freq PRN Reason Stop Dose Admin Dexamethasone Sodium Phosphate 6 mg 08/26/20 14:30 Dexamethasone Sod Phosphate 4 Mg/Ml Vial IVPUSH 09/04/20 09:01 DAILY KANWAL Azithromycin 500 mg/ Sodium 250 mls @ 125 mls/hr 08/26/20 12:39 08/26/20 13:36 Chloride IV 08/26/20 14:38 125 mls/hr ONCE ONE Administration Physical Exam Vital Signs and Narrative: Vital Signs: Last Vital Signs Temp 98.7 F 08/26/20 09:24 Pulse 98 08/26/20 09:24 Resp 23 H 08/26/20 09:24 BP 153/72 H 08/26/20 09:24 Pulse Ox 87 L 08/26/20 09:24 Body Mass Index 39.9 General: AO X 3, no acute distress Resp: She is speaking in normal sentences, no accessory muscle use. CVS: S1,S2,RRR GI: +BS, NT, no distention Skin: No rash Neuro: motor grossly intact Psych: appropriate affect Results Labs CBC and Chem 7: 08/26/20 11:47 08/26/20 11:47 Labs: Laboratory Results - last 24 hr 08/26/20 08/26/20 08/26/20 11:47 11:47 11:47 MCV 89.6 MCH 28.2 MCHC 31.5 RDW 13.7 Plt Count 236 D MPV 11.8 Immature Gran % (Auto) 0.5 H Neut % (Auto) 74.9 H Lymph % (Auto) 18.1 L [place] % (Auto) 6.5 Eos % (Auto) 0.0 Baso % (Auto) 0.0 Lymph # (Auto) 0.8 L [place] # (Auto) 0.3 Eos # (Auto) 0.0 Baso # (Auto) 0.0 Abs Immat Gran (auto) 0.02 Absolute Neuts (auto) 3.2 Absolute Nucleated RBC 0.000 Nucleated RBC % (auto) 0.0 Anion Gap 12 Estim Creat Clear Calc 104.1 Estimated GFR > 60 Random Glucose 91 Lactic Acid Calcium 9.3 Total Bilirubin 0.3 Direct Bilirubin 0.2 AST 44 H ALT 39 H Alkaline Phosphatase 56 B-Natriuretic Peptide 18 Total Protein 8.4 H Albumin 4.3 Lipase 36 Urine Color Urine Appearance Urine pH Ur Specific [place] Urine Protein Urine Glucose (UA) Urine Ketones Urine Blood Urine Nitrite Ur Leukocyte Esterase Urine RBC Urine WBC Ur Squamous Epith Cells Urine Bacteria Urine Mucus COVID-19 (WANDA) COVID-19 Clin Com 08/26/20 08/26/20 08/26/20 11:47 11:52 13:09 MCV MCH MCHC RDW Plt Count MPV Immature Gran % (Auto) Neut % (Auto) Lymph % (Auto) [place] % (Auto) Eos % (Auto) Baso % (Auto) Lymph # (Auto) [place] # (Auto) Eos # (Auto) Baso # (Auto) Abs Immat Gran (auto) Absolute Neuts (auto) Absolute Nucleated RBC Nucleated RBC % (auto) Anion Gap Estim Creat Clear Calc Estimated GFR Random Glucose Lactic Acid 0.9 Calcium Total Bilirubin Direct Bilirubin AST ALT Alkaline Phosphatase B-Natriuretic Peptide Total Protein Albumin Lipase Urine Color YELLOW Urine Appearance HAZY Urine pH 6.5 Ur Specific [place] 1.025 Urine Protein 2+ H Urine Glucose (UA) NEG Urine Ketones 15 Urine Blood NEG Urine Nitrite NEG Ur Leukocyte Esterase NEG Urine RBC 0 Urine WBC 0 Ur Squamous Epith Cells 2+ Urine Bacteria TRACE Urine Mucus TRACE COVID-19 (WANDA) Positive A COVID-19 Clin Com See Note Imaging Radiologist's Impressions: Impressions Chest X-Ray 08/26/20 11:11 IMPRESSION: Bilateral pneumonia, question slightly increased on the right compared to 08/23/2020 exam. Assessment and Plan (1) COVID-19: Status: Acute (2) Acute respiratory failure with hypoxia: Status: Acute 45-year-old obese female with COVID-19 with hypoxia. Plan: Dexamethasone, oxygen to keep oxygen saturation above 92-94%, ID to authorize remdesivir, P.r.n. cough medications. Advised to lose weight. DVT prophylaxis with Xarelto 10 mg daily.
[2020-08-26 15:00] VITALS: PULSE 82; O2SAT 96
[2020-08-26] MEDS: dexAMETHasone sod phosphate 4 MG/ML VIAL 6 MG IVPUSH (15:03)
[2020-08-26] MEDS: 0.9 % Sodium Chloride Flush 3 ML SYRINGE IVFLUSH (20:00)
--- NOTE | 2020-08-26 20:00 | PC.NURSE ---
This RN at bedside to medicate with Xarelto, pt refusing, pt states I don't take that @ home!!
[2020-08-26 20:19] VITALS: BP 133/82; PULSE 68; RESP 20; O2SAT 93
[2020-08-26] MEDS: Rivaroxaban 10 MG TABLET PO (20:20)
--- NOTE | 2020-08-26 20:20 | PC.NURSE ---
Pt resting in bed, denies pain/SOB. Pt medicated with DVT prophylaxsis with Xarelto per JUN. VSS. Pt aware of plan to await a room assignment. Continue to monitor.
--- NOTE | 2020-08-26 20:26 | PC.NURSE ---
[facility] in [place], per pt, phone number for counselor Britni to verify [phone].
[2020-08-26 21:36] VITALS: O2SAT 88; O2SAT 93
[2020-08-26 22:11] VITALS: BP 133/69; PULSE 80; RESP 21; TEMP 37.1; O2SAT 94
[2020-08-27] VITALS (9 sets, daily range): BP systolic 121–147; BP diastolic 73–83; PULSE 64–89; RESP 17–24; TEMP 36.1–37; O2SAT 92–94
[2020-08-27] MEDS: 0.9 % Sodium Chloride Flush 3 ML SYRINGE IVFLUSH ×3 (01:04→20:14)
--- NOTE | 2020-08-27 07:45 | PC.NURSE ---
Pt in bed, appears sl flushed. sat 88% on 2lpm, 02 increased to 4lpm via nc and sat 93-94%, no visible sob noted resp effort normal, rate 22-24. Pt SR on tele. Awaiting bed assgn
--- NOTE | 2020-08-27 08:38 | HO.PM.IMPN ---
Subjective Subjective Date of Service: 08/27/20 Interval History: Seen in follow-up for COVID-19 associated with acute hypoxic respiratory failure. She feels better however her oxygen saturation remains low and is on 4 L by nasal cannula satting at 94%. Review of Systems Gen: no fever Resp: + sob, no cough CV: no chest, no TELLO, no leg edema GI: No n/v, no abd pain Neuro: No confusion Physical Exam Vital Signs: Vital Signs: Last Vital Signs Temp 98.7 F 08/26/20 22:11 Pulse 86 08/27/20 07:30 Resp 23 H 08/27/20 07:30 BP 133/83 08/27/20 07:30 Pulse Ox 94 08/27/20 07:30 Body Mass Index 39.9 General: AO X 3, no acute distress Resp: normal respiratory effort, no accessory muscle use CVS: S1,S2,RRR GI: +BS, NT, no distention Skin: No rash Neuro: motor grossly intact Psych: appropriate affect Objective Data Current Medications Generic Name Dose Route Start Last Admin Trade Name Freq PRN Reason Stop Dose Admin Dexamethasone Sodium Phosphate 6 mg 08/26/20 14:30 08/26/20 15:03 Dexamethasone Sod Phosphate 4 Mg/Ml Vial IVPUSH 09/04/20 09:01 6 mg DAILY KANWAL Administration Guaifenesin 5 ml 08/27/20 07:21 Guaifenesin 100 Mg/5 Ml Liquid PO Q4H PRN Cough Rivaroxaban 10 mg 08/26/20 18:35 08/26/20 20:20 Rivaroxaban 10 Mg Tablet PO 10 mg DAILY KANWAL Administration Sodium Chloride 3 ml 08/26/20 18:35 08/27/20 01:04 0.9 % Sodium Chloride Flush 3 Ml Syringe IVFLUSH 3 ml QSHIFT KANWAL Administration Labs CBC & Chem 7: 08/26/20 11:47 08/26/20 11:47 Assessment and Plan (1) COVID-19: Status: Acute (2) Acute respiratory failure with hypoxia: Status: Acute Assessment and Plan: 45-year-old obese female with COVID-19 with hypoxia. Plan: Covid 19/acute hypoxic respiratory failure-- still requiring oxygen Dexamethasone D2/10 Wean O2 ID to authorize remdesivir, P.r.n. cough medications. Obesity -Advised to lose weight. DVT prophylaxis with Xarelto 10 mg daily.
[2020-08-27] MEDS: dexAMETHasone sod phosphate 4 MG/ML VIAL 6 MG IVPUSH (09:13)
[2020-08-27] MEDS: Rivaroxaban 10 MG TABLET PO (09:15)
--- NOTE | 2020-08-27 10:11 | P.CDIC_ITS ---
CDI Concurrent Query Service Date: 08/27/20 Documentation Clarification: Please clarify if you are treating a proba ble/suspected/likely or confirmed: Consistency and clarity: Covid-19 pneumonia with acute hypoxic respiratory failure Covid-19 with acute hypoxic respiratory failure Please specify if known PLEASE DO NOT DELETE/MODIFY EXISTING CONTENT Additional information is needed in order to code to the highest accuracy and appropriate Severity of Illness (SOI). Please clarify the information noted below in your progress notes and discharge summary. Risk Factors/Clinical Indicators/Treatments Ed: CXR bilateral pneumonia, question slightly increased on right. Oxygen, Zithromax RR 24 Progress note documents Covid-19 w acute hypoxic respiratory failure. CDS: Antonella Rollins CCS, CDIS Contact Number: [phone]. [phone] Please Review the information above and exercise your independent professional judgment in responding to the query. If you concur, pleas document in the PROGRESS NOTES and DISCHARGE SUMMARY. If you do not agree with the query, please document in the query above. THIS QUERY IS PART OF THE PERMANENT MEDICAL RECORD
--- NOTE | 2020-08-27 10:30 | PC.NURSE ---
Methadone verified by Sarah at [facility] 118 Methdone mg daily, verification form faxed to pharmacy
[2020-08-27] MEDS: Remdesivir 200 MG in 0.9 % Sodium Chloride 210 ML 105 MG IV (13:41)
--- NOTE | 2020-08-27 15:09 | PC.NURSE ---
Report given to [facility] nurse who will be taking over care of the Pt.
--- NOTE | 2020-08-27 16:27 | W.PM.IDCN ---
History of Present Illness Data of Consult Service Date: 08/27/20 Requesting physician: Harry Michael Primary Care Provider: DO KASSANDRA Granado Reason for consult: COVID,hypoxia She presents with shortness of breath and cough for three days and myalgia She is COVID positive Review of Systems Review of Systems: Yes all other systems are reviewed and are negative PMFSH Family History Family history: reviewed and not pertinent Surgical History Surgical History History of cholecystectomy Hx of section Social History Social History Household Members: Children Household Members Other:: Two children, recently Housing: Apartment Do you presently have visiting nurse or other home services: No Smoking Status: Never smoker Second Hand Smoke Exposure: No Use of substances other than those prescribed or required for medical reasons: No Substance Use Type Other:: methadone Currently Displaying Signs/Symptoms of Drug Intoxication Withdrawal: No Any prior treatment program specific to substance use: No Have you been hit, kicked, punched, or otherwise hurt by someone within the past year? If so, by whom?: No Do you feel safe in your current relationship?: Yes Is there a partner from a previous relationship who is making you feel unsafe now?: No Are you made to feel afraid or neglected: No Spiritual Healthcare Practices: [facility]ist Advance Directives: No Advance Directives Information Provided: No Do you have thoughts of harming others: None Recently lost weight without trying: No Eating poorly because of decreased appetite: No Nutrition Risks: No Nutritional Risk Patient : No : No Poor oral hygiene: No Meds Allergies Allergy/AdvReac Type Severity Reaction Status Date / Time No Known Allergies Allergy Unknown Unverified 01/12/20 16:03 Active Medications: Current Medications Generic Name Dose Route Start Last Admin Trade Name Freq PRN Reason Stop Dose Admin Dexamethasone Sodium Phosphate 6 mg 08/26/20 14:30 08/27/20 09:13 Dexamethasone Sod Phosphate 4 Mg/Ml Vial IVPUSH 09/04/20 09:01 6 mg DAILY KANWAL Administration Guaifenesin 5 ml 08/27/20 07:21 Guaifenesin 100 Mg/5 Ml Liquid PO Q4H PRN Cough Remdesivir 100 mg/ Sodium 230 mls @ 115 mls/hr 08/28/20 14:00 Chloride IV 08/31/20 15:59 Q24H KANWAL Methadone HCl 120 mg 08/27/20 15:00 08/27/20 15:53 Methadone Hcl 1 Mg/0.1 Ml Oral.Conc PO 120 mg DAILY KANWAL Administration Rivaroxaban 10 mg 08/26/20 18:35 08/27/20 09:15 Rivaroxaban 10 Mg Tablet PO 10 mg DAILY KANWAL Administration Sodium Chloride 3 ml 08/26/20 18:35 08/27/20 09:38 0.9 % Sodium Chloride Flush 3 Ml Syringe IVFLUSH 3 ml QSHIFT KANWAL Administration Home Medications Medication Instructions Recorded Confirmed Last Taken Type ascorbic acid (vitamin C) 1 tab PO DAILY 08/26/20 08/26/20 Unknown History ergocalciferol (vitamin D2) 1 cap PO QWEEK 08/26/20 08/26/20 Unknown History methadone 118 mg PO DAILY 08/26/20 08/26/20 08/26/20 08:00 History methadone [Methadone Intensol] 118 mg PO DAILY 08/27/20 08/27/20 08/26/20 History Physical Exam Vital Signs: Vital Signs: Last Vital Signs Temp 97.6 F 08/27/20 15:51 Pulse 70 08/27/20 15:51 Resp 20 08/27/20 15:51 BP 133/81 08/27/20 15:51 Pulse Ox 93 08/27/20 15:51 Oxygen Flow Rate 4 08/27/20 11:11 Body Mass Index 39.9 Const: General: cooperative HENMT: Head: Yes normal to inspection Mouth: Normal oral and palatal mucosa present Eyes: General: appearance normal, both eyes and all related structures Resp: Effort & Inspection: normal respiratory effort Cardio: Rate: regular rate Rhythm: regular rhythm GI: Palpation (GI): Soft to palpation and nontender Skin: General skin exam: no rashes or lesions noted Results Labs CBC & Chem 7: 08/26/20 11:47 08/26/20 11:47 Microbiology Microbiology Results: Microbiology 08/26/20 13:09 Blood - Venous Blood Culture - Preliminary No growth after 24 hours. 08/26/20 13:09 Blood - Venous Blood Culture - Preliminary No growth after 24 hours. Assessment and Plan (1) Acute respiratory failure with hypoxia: Problem details: She has COVID She has unremarkable kidney and liver tests Status: Acute Would continue steroids Continue oxygen Remdesivir (2) COVID-19: Status: Acute
[2020-08-28 03:12] VITALS: BP 155/83; PULSE 72; RESP 16; TEMP 37.1; O2SAT 91
[2020-08-28] MEDS: ondansetron HCL 4 MG/2 ML VIAL IVPUSH (04:32)
[2020-08-28 07:28] VITALS: BP 122/58; PULSE 80; RESP 20; TEMP 37.2; O2SAT 92
[2020-08-28] MEDS: dexAMETHasone sod phosphate 4 MG/ML VIAL 6 MG IVPUSH (08:18)
[2020-08-28] MEDS: Rivaroxaban 10 MG TABLET PO (08:18)
[2020-08-28] MEDS: 0.9 % Sodium Chloride Flush 3 ML SYRINGE IVFLUSH (08:19)
--- NOTE | 2020-08-28 10:18 | HO.PM.IMPN ---
Subjective Subjective Date of Service: 08/28/20 Interval History: Seen in follow-up for COVID-19 associated with acute hypoxic respiratory failure. Still sob Review of Systems Gen: no fever Resp: + sob--better, no cough CV: no chest, no TELLO, no leg edema GI: No n/v, no abd pain Neuro: No confusion Physical Exam Vital Signs: Vital Signs: Last Vital Signs Temp 96.7 F L 09/01/20 07:19 Pulse 86 09/01/20 09:15 Resp 19 09/01/20 07:19 BP 111/56 L 09/01/20 09:15 Pulse Ox 94 09/01/20 07:19 Oxygen Flow Rate 4 08/27/20 11:11 Body Mass Index 39.9 Const: Other: General: AO X 3, no acute distress Resp: speaks in full sentences CVS: S1,S2,RRR GI: +BS, NT, no distention Skin: No rash Neuro: motor grossly intact Psych: appropriate affect Objective Data Current Medications Generic Name Dose Route Start Last Admin Trade Name Freq PRN Reason Stop Dose Admin Acetaminophen 650 mg 08/31/20 20:09 08/31/20 20:47 Acetaminophen 325 Mg Tablet PO 650 mg Q6H PRN Administration Pain, Mild (Pain Scale 1-3) Benzocaine 1 lozenge 08/29/20 05:40 08/31/20 20:47 Throat Lozenge, Medicated Lozenge MUCOUS MEM 1 lozenge Q2H PRN Administration Sore Throat Dexamethasone Sodium Phosphate 6 mg 08/26/20 14:30 09/01/20 08:23 Dexamethasone Sod Phosphate 4 Mg/Ml Vial IVPUSH 09/04/20 09:01 6 mg DAILY KANWAL Administration Guaifenesin 5 ml 08/27/20 07:21 Guaifenesin 100 Mg/5 Ml Liquid PO Q4H PRN Cough Methadone HCl 120 mg 08/27/20 15:00 09/01/20 08:22 Methadone Hcl 1 Mg/0.1 Ml Oral.Conc PO 120 mg DAILY KANWAL Administration Ondansetron HCl 4 mg 08/28/20 03:44 08/31/20 20:47 Ondansetron Hcl 4 Mg/2 Ml Vial IVPUSH 4 mg Q8H PRN Administration Nausea and Vomiting Rivaroxaban 10 mg 08/26/20 18:35 09/01/20 08:22 Rivaroxaban 10 Mg Tablet PO 10 mg DAILY KANWAL Administration Sodium Chloride 3 ml 08/26/20 18:35 09/01/20 08:23 0.9 % Sodium Chloride Flush 3 Ml Syringe IVFLUSH 3 ml QSHIFT KANWAL Administration Labs CBC & Chem 7: 08/26/20 11:47 08/31/20 10:03 Microbiology Microbiology Results: Microbiology 08/26/20 13:09 Blood - Venous Blood Culture - Final No growth after 5 days. 08/26/20 13:09 Blood - Venous Blood Culture - Final No growth after 5 days. Assessment and Plan (1) Acute respiratory failure with hypoxia: Status: Acute (2) COVID-19: Status: Acute Assessment and Plan: 45-year-old obese female with COVID-19 with hypoxia. Plan: Covid 19/acute hypoxic respiratory failure- still requiring oxygen but better Dexamethasone for 10 days Wean O2 Remdesevir for 5 days P.r.n. cough medications. Obesity -Advised to lose weight. DVT prophylaxis with Xarelto 10 mg daily. This is a late entry note from 08/28
[2020-08-28 11:23] VITALS: BP 140/67; PULSE 63; RESP 20; TEMP 36; O2SAT 95
--- NOTE | 2020-08-28 12:24 | MHC.CM.PN ---
Female 45 DX COVID+ She lives with her Dtrs. Her last week from Covid. She is independent with ADLs. She uses a [employer]. She has OA jose knees. DP home with or with out services vs STR. Dispo depends on the Pts recovery. She may need a home O2 and PT eval prior to discharge. She declined the offer of HCP documentation at this time. CM will follow to assess for a change in discharge needs.
[2020-08-28] MEDS: Remdesivir 100 MG in 0.9 % Sodium Chloride 230 ML 115 MG IV (14:21)
[2020-08-28 15:14] VITALS: BP 134/72; PULSE 62; RESP 20; TEMP 36; O2SAT 96
[2020-08-28 19:15] VITALS: BP 140/61; PULSE 68; RESP 20; TEMP 36; O2SAT 94
[2020-08-28 23:23] VITALS: BP 140/77; PULSE 56; RESP 18; TEMP 36.4; O2SAT 92
[2020-08-29] MEDS: 0.9 % Sodium Chloride Flush 3 ML SYRINGE IVFLUSH ×4 (00:21→20:32)
[2020-08-29] MEDS: ondansetron HCL 4 MG/2 ML VIAL IVPUSH (00:26)
[2020-08-29 03:23] VITALS: BP 143/81; PULSE 67; RESP 18; TEMP 36.4; O2SAT 93
[2020-08-29 07:41] VITALS: BP 142/84; PULSE 66; RESP 20; TEMP 36.6; O2SAT 94
[2020-08-29] MEDS: Rivaroxaban 10 MG TABLET PO (08:04)
[2020-08-29] MEDS: dexAMETHasone sod phosphate 4 MG/ML VIAL 6 MG IVPUSH (08:05)
[2020-08-29] MEDS: Throat Lozenge, Medicated LOZENGE 1 LOZENGE MUCOUS MEM ×2 (10:55→20:32)
[2020-08-29 11:17] VITALS: BP 151/72; PULSE 55; RESP 20; TEMP 36.2; O2SAT 92
--- NOTE | 2020-08-29 14:19 | MHC.CM.PN ---
Female 45 DX Covid +. DP is home no services with family transport. CM will followfor a change in needs for discharge.
[2020-08-29] MEDS: Remdesivir 100 MG in 0.9 % Sodium Chloride 230 ML 115 MG IV (14:50)
[2020-08-29 15:13] VITALS: BP 129/71; PULSE 55; RESP 20; TEMP 36; O2SAT 96
--- NOTE | 2020-08-29 15:31 | HO.PM.IMPN ---
Subjective Subjective Date of Service: 08/29/20 Interval History: Seen in follow-up for COVID-19 associated with acute hypoxic respiratory failure. She is making progress, oxygen saturations improving Review of Systems Gen: no fever Resp: + sob--better, no cough CV: no chest, no TELLO, no leg edema GI: No n/v, no abd pain Neuro: No confusion Physical Exam Vital Signs: Vital Signs: Last Vital Signs Temp 96.8 F 08/29/20 15:13 Pulse 55 08/29/20 15:13 Resp 20 08/29/20 15:13 BP 129/71 08/29/20 15:13 Pulse Ox 96 08/29/20 15:13 Oxygen Flow Rate 4 08/27/20 11:11 Body Mass Index 39.9 General: AO X 3, no acute distress Resp: No direct auscultation due to cholecystitis, she has normal breathing pattern no accessory muscle use. CVS: S1,S2,RRR GI: +BS, NT, no distention Skin: No rash Neuro: motor grossly intact Psych: appropriate affect Objective Data Current Medications Generic Name Dose Route Start Last Admin Trade Name Freq PRN Reason Stop Dose Admin Benzocaine 1 lozenge 08/29/20 05:40 08/29/20 10:55 Throat Lozenge, Medicated Lozenge MUCOUS MEM 1 lozenge Q2H PRN Administration Sore Throat Dexamethasone Sodium Phosphate 6 mg 08/26/20 14:30 08/29/20 08:05 Dexamethasone Sod Phosphate 4 Mg/Ml Vial IVPUSH 09/04/20 09:01 6 mg DAILY KANWAL Administration Guaifenesin 5 ml 08/27/20 07:21 Guaifenesin 100 Mg/5 Ml Liquid PO Q4H PRN Cough Remdesivir 100 mg/ Sodium 230 mls @ 115 mls/hr 08/28/20 14:00 08/29/20 14:50 Chloride IV 08/31/20 15:59 115 mls/hr Q24H KANWAL Administration Methadone HCl 120 mg 08/27/20 15:00 08/29/20 08:05 Methadone Hcl 1 Mg/0.1 Ml Oral.Conc PO 120 mg DAILY KANWAL Administration Ondansetron HCl 4 mg 08/28/20 03:44 08/29/20 00:26 Ondansetron Hcl 4 Mg/2 Ml Vial IVPUSH 4 mg Q8H PRN Administration Nausea and Vomiting Rivaroxaban 10 mg 08/26/20 18:35 08/29/20 08:04 Rivaroxaban 10 Mg Tablet PO 10 mg DAILY KANWAL Administration Sodium Chloride 3 ml 08/26/20 18:35 08/29/20 08:05 0.9 % Sodium Chloride Flush 3 Ml Syringe IVFLUSH 3 ml QSHIFT KANWAL Administration Labs CBC & Chem 7: 08/26/20 11:47 08/26/20 11:47 Microbiology Microbiology Results: Microbiology 08/26/20 13:09 Blood - Venous Blood Culture - Preliminary No growth after 48 hours. 08/26/20 13:09 Blood - Venous Blood Culture - Preliminary No growth after 48 hours. Assessment and Plan (1) Acute respiratory failure with hypoxia: Status: Acute Assessment and Plan: Would continue steroids Continue oxygen Remdesivir (2) COVID-19: Status: Acute Assessment and Plan: 45-year-old obese female with COVID-19 with hypoxia. Plan: Covid 19/acute hypoxic respiratory failure-- still requiring oxygen but better Dexamethasone for 10 days Wean O2 Remdesevir D3 P.r.n. cough medications. Obesity -Advised to lose weight. DVT prophylaxis with Xarelto 10 mg daily.
[2020-08-29 19:11] VITALS: BP 140/70; PULSE 60; RESP 20; TEMP 36; O2SAT 100
[2020-08-30] VITALS (10 sets, daily range): BP systolic 126–153; BP diastolic 71–79; PULSE 50–76; RESP 18–20; TEMP 36.1–36.6; O2SAT 87–95
[2020-08-30] MEDS: Throat Lozenge, Medicated LOZENGE 1 LOZENGE MUCOUS MEM ×3 (01:39→21:00)
[2020-08-30] MEDS: dexAMETHasone sod phosphate 4 MG/ML VIAL 6 MG IVPUSH (07:47)
[2020-08-30] MEDS: Rivaroxaban 10 MG TABLET PO (07:47)
[2020-08-30] MEDS: 0.9 % Sodium Chloride Flush 3 ML SYRINGE IVFLUSH (07:47)
[2020-08-30] MEDS: Remdesivir 100 MG in 0.9 % Sodium Chloride 230 ML 115 MG IV (15:06)
[2020-08-30] MEDS: ondansetron HCL 4 MG/2 ML VIAL IVPUSH (21:07)
[2020-08-31] VITALS (7 sets, daily range): BP systolic 123–148; BP diastolic 69–89; PULSE 18–64; RESP 15–20; TEMP 36.2–36.7; O2SAT 88–96
[2020-08-31] MEDS: 0.9 % Sodium Chloride Flush 3 ML SYRINGE IVFLUSH ×4 (01:06→19:56)
[2020-08-31] MEDS: Rivaroxaban 10 MG TABLET PO (08:50)
[2020-08-31] MEDS: dexAMETHasone sod phosphate 4 MG/ML VIAL 6 MG IVPUSH (08:50)
--- NOTE | 2020-08-31 09:33 | MHC.CM.PN ---
Female 45 DX COVID+ Plan to discharge today to home. No home services needed. Patient has arranged for transportation to home.
[2020-08-31 10:38] LABS: Alanine Aminotransferase 48 U/L (0-31); Alkaline Phosphatase 52 U/L (39-117); Anion Gap 14 (12-20); Aspartate Amino Transferase 37 U/L (5-31); Bilirubin Direct 0.2 mg/dL (0.0-0.5); Bilirubin Total 0.5 mg/dL (0.0-1.0); Blood Urea Nitrogen 14 mg/dL (9-16); Calcium 9.6 mg/dL (8.4-10.2); Carbon Dioxide 33 mmol/L (22-29); Chloride 96 mmol/L (96-108); Creatinine Clr Calc Pharmacy 100.1; Estimated Glomerular Filt Rate > 60; Glucose Random 120 mg/dL (60-115); Potassium 3.7 mmol/L (3.3-5.1); Sodium 139 mmol/L (135-145); Total Protein 8.2 g/dL (6.5-8.0)
[2020-08-31] MEDS: Remdesivir 100 MG in 0.9 % Sodium Chloride 230 ML 115 MG IV (11:23)
[2020-08-31] MEDS: Throat Lozenge, Medicated LOZENGE 1 LOZENGE MUCOUS MEM ×2 (17:02→20:47)
[2020-08-31] MEDS: Acetaminophen 325 MG TABLET 650 MG PO (20:47)
[2020-08-31] MEDS: ondansetron HCL 4 MG/2 ML VIAL IVPUSH (20:47)
[2020-09-01] VITALS (8 sets, daily range): BP systolic 111–147; BP diastolic 45–80; PULSE 56–86; RESP 17–20; TEMP 35.9–36.5; O2SAT 90–96
[2020-09-01] MEDS: Rivaroxaban 10 MG TABLET PO (08:22)
[2020-09-01] MEDS: 0.9 % Sodium Chloride Flush 3 ML SYRINGE IVFLUSH (08:23)
[2020-09-01] MEDS: dexAMETHasone sod phosphate 4 MG/ML VIAL 6 MG IVPUSH (08:23)
--- NOTE | 2020-09-01 10:10 | HO.PM.IMPN ---
Subjective Subjective Date of Service: 09/01/20 Interval History: Seen in follow-up for COVID-19 associated with acute hypoxic respiratory failure. She is off O2 but still c/o sob Review of Systems Gen: no fever Resp: + sob--better, no cough CV: no chest, no TELLO, no leg edema GI: No n/v, no abd pain Neuro: No confusion Physical Exam Vital Signs: Vital Signs: Vitals revieed on 5 Oxygen Flow Rate 4 08/27/20 11:11 Body Mass Index 39.9 General: AO X 3, no acute distress Resp: Normal speech, normal CVS: S1,S2,RRR GI: +BS, NT, no distention Skin: No rash Neuro: motor grossly intact Psych: appropriate affect Objective Data Current Medications Generic Name Dose Route Start Last Admin Trade Name Freq PRN Reason Stop Dose Admin Acetaminophen 650 mg 08/31/20 20:09 08/31/20 20:47 Acetaminophen 325 Mg Tablet PO 650 mg Q6H PRN Administration Pain, Mild (Pain Scale 1-3) Benzocaine 1 lozenge 08/29/20 05:40 08/31/20 20:47 Throat Lozenge, Medicated Lozenge MUCOUS MEM 1 lozenge Q2H PRN Administration Sore Throat Dexamethasone Sodium Phosphate 6 mg 08/26/20 14:30 09/01/20 08:23 Dexamethasone Sod Phosphate 4 Mg/Ml Vial IVPUSH 09/04/20 09:01 6 mg DAILY KANWAL Administration Guaifenesin 5 ml 08/27/20 07:21 Guaifenesin 100 Mg/5 Ml Liquid PO Q4H PRN Cough Methadone HCl 120 mg 08/27/20 15:00 09/01/20 08:22 Methadone Hcl 1 Mg/0.1 Ml Oral.Conc PO 120 mg DAILY KANWAL Administration Ondansetron HCl 4 mg 08/28/20 03:44 08/31/20 20:47 Ondansetron Hcl 4 Mg/2 Ml Vial IVPUSH 4 mg Q8H PRN Administration Nausea and Vomiting Rivaroxaban 10 mg 08/26/20 18:35 09/01/20 08:22 Rivaroxaban 10 Mg Tablet PO 10 mg DAILY KANWAL Administration Sodium Chloride 3 ml 08/26/20 18:35 09/01/20 08:23 0.9 % Sodium Chloride Flush 3 Ml Syringe IVFLUSH 3 ml QSHIFT KANWAL Administration Labs CBC & Chem 7: 08/26/20 11:47 08/31/20 10:03 Microbiology Microbiology Results: Microbiology 08/26/20 13:09 Blood - Venous Blood Culture - Final No growth after 5 days. 08/26/20 13:09 Blood - Venous Blood Culture - Final No growth after 5 days. Assessment and Plan (1) Acute respiratory failure with hypoxia: Status: Acute Assessment and Plan: Would continue steroids Continue oxygen Remdesivir (2) COVID-19: Status: Acute Assessment and Plan: 45-year-old obese female with COVID-19 with hypoxia. Plan: Covid 19/acute hypoxic respiratory failure- still requiring oxygen but better Dexamethasone for 10 days Wean O2 Remdesevir D5 P.r.n. cough medications. Obesity -Advised to lose weight. consider home O2 DVT prophylaxis with Xarelto 10 mg daily. This is a late entry note from 08/31
--- NOTE | 2020-09-01 10:21 | HO.PM.IMPN ---
Subjective Subjective Date of Service: 08/30/20 Interval History: Seen in follow-up for COVID-19 associated with acute hypoxic respiratory failure. Still sob Review of Systems Gen: no fever Resp: + sob--better, no cough CV: no chest, no TELLO, no leg edema GI: No n/v, no abd pain Neuro: No confusion Physical Exam Vital Signs: Vital Signs: Vitals from 08/30 reviewed Oxygen Flow Rate 4 08/27/20 11:11 Body Mass Index 39.9 Const: Other: General: AO X 3, no acute distress Resp: speaks in full sentences CVS: S1,S2,RRR GI: +BS, NT, no distention Skin: No rash Neuro: motor grossly intact Psych: appropriate affect Objective Data Current Medications Generic Name Dose Route Start Last Admin Trade Name Freq PRN Reason Stop Dose Admin Acetaminophen 650 mg 08/31/20 20:09 08/31/20 20:47 Acetaminophen 325 Mg Tablet PO 650 mg Q6H PRN Administration Pain, Mild (Pain Scale 1-3) Benzocaine 1 lozenge 08/29/20 05:40 08/31/20 20:47 Throat Lozenge, Medicated Lozenge MUCOUS MEM 1 lozenge Q2H PRN Administration Sore Throat Dexamethasone Sodium Phosphate 6 mg 08/26/20 14:30 09/01/20 08:23 Dexamethasone Sod Phosphate 4 Mg/Ml Vial IVPUSH 09/04/20 09:01 6 mg DAILY KANWAL Administration Guaifenesin 5 ml 08/27/20 07:21 Guaifenesin 100 Mg/5 Ml Liquid PO Q4H PRN Cough Methadone HCl 120 mg 08/27/20 15:00 09/01/20 08:22 Methadone Hcl 1 Mg/0.1 Ml Oral.Conc PO 120 mg DAILY KANWAL Administration Ondansetron HCl 4 mg 08/28/20 03:44 08/31/20 20:47 Ondansetron Hcl 4 Mg/2 Ml Vial IVPUSH 4 mg Q8H PRN Administration Nausea and Vomiting Rivaroxaban 10 mg 08/26/20 18:35 09/01/20 08:22 Rivaroxaban 10 Mg Tablet PO 10 mg DAILY KANWAL Administration Sodium Chloride 3 ml 08/26/20 18:35 09/01/20 08:23 0.9 % Sodium Chloride Flush 3 Ml Syringe IVFLUSH 3 ml QSHIFT KANWAL Administration Labs CBC & Chem 7: 08/26/20 11:47 08/31/20 10:03 Microbiology Microbiology Results: Microbiology 08/26/20 13:09 Blood - Venous Blood Culture - Final No growth after 5 days. 08/26/20 13:09 Blood - Venous Blood Culture - Final No growth after 5 days. Assessment and Plan (1) Acute respiratory failure with hypoxia: Status: Acute (2) COVID-19: Status: Acute Assessment and Plan: 45-year-old obese female with COVID-19 with hypoxia. Plan: Covid 19/acute hypoxic respiratory failure- still requiring oxygen but better Dexamethasone for 10 days Wean O2 Remdesevir for 5 days, last day 08/31 P.r.n. cough medications. Obesity -Advised to lose weight. DVT prophylaxis with Xarelto 10 mg daily. This is a late entry note from 08/30
--- NOTE | 2020-09-01 15:49 | PM.DS ---
DS: Providers Provider Date of Service: 09/05/20 <Harry Michael MD - Last Filed: 09/05/20 14:57> 09/01/20 <Richard Aquino MD - Last Filed: 09/01/20 15:49> Date of admission: 08/26/20 14:14 <Harry Michael MD - Last Filed: 09/05/20 14:57> Primary care physician: Alessandra Díaz DO <Harry Michael MD - Last Filed: 09/05/20 14:57> Consults: 08/27/20 07:20 Consult to Infectious Diseases Routine Consulting Provider: Magaly Taylor Reason for consultation: covid, candidate for Remdesevir <Harry Michael MD - Last Filed: 09/05/20 14:57> DS: Diagnosis Discharge Diagnosis (1) Acute respiratory failure with hypoxia: Status: Acute <Harry Michael MD - Last Filed: 09/05/20 14:57> (2) COVID-19: Status: Acute <Harry Michael MD - Last Filed: 09/05/20 14:57> DS: Medications Discharge Medications Home Medications: Home Medications Medication Instructions Recorded Confirmed ascorbic acid (vitamin C) 1 tab PO DAILY 08/26/20 08/26/20 ergocalciferol (vitamin D2) 1 cap PO QWEEK 08/26/20 08/26/20 methadone 118 mg PO DAILY 08/26/20 08/26/20 methadone [Methadone Intensol] 118 mg PO DAILY 08/27/20 08/27/20 Previous Rx's Medication Instructions Recorded acetaminophen [Tylenol Extra 1,000 mg PO QID PRN #14 tab 08/23/20 Strength] azithromycin See Rx Instructions .ROUTE 08/23/20 .COMPLEX #6 tab ibuprofen 800 mg PO Q8H PRN #14 tab 08/23/20 <Harry Michael MD - Last Filed: 09/05/20 14:57> DS: Summary Hospital Course Hospital Course: Date of Service: 08/26/20 45-year-old female obese with no significant past medical history who has been sick with cold symptoms were about a week and she was tested on August 23 was positive and has been treated with azithromycin. Today she comes to the emergency room complaining by increasing body aches and shortness of breath and is found to be hypoxic with oxygen saturation of 87% on room air and that has receive a azithromycin in the emergency room also. She has been admitted because of acute hypoxic respiratory failure. Hospital course: She was treated with covid 19 with acute hypoxia and management consisted of Remdesevir 5 day protocol, IV dexamethasone, and Oxygen. She has improved and discahrged home on oxygen 2 liter With activity and recommended to take Oral Dexamthasone to complete a 10 day course. Patient has been instructed to drink plenty of fluids continue isolation and use mask. <Harry Michael MD - Last Filed: 09/05/20 14:57> Time Spent with Patient Time attestation: Total time spent providing and/or coordinating discharge services: <Harry Michael MD - Last Filed: 09/05/20 14:57> Discharge coordination time: Greater than 30 minutes <Harry Michael MD - Last Filed: 09/05/20 14:57> Physical Exam Vital Signs: Vital Signs: Last Vital Signs Temp 97.2 F 08/31/20 07:31 Pulse 61 08/31/20 07:31 Resp 18 08/31/20 07:31 BP 123/78 08/31/20 07:31 Pulse Ox 91 L 08/31/20 07:31 Oxygen Flow Rate 4 08/27/20 11:11 Body Mass Index 39.9 General: AO X 3, no acute distress Resp: normal respiratory effort, speaks in full sentences CVS: S1,S2,RRR GI: +BS, NT, no distention Skin: No rash Neuro: motor grossly intact Psych: appropriate affect <Harry Michael MD - Last Filed: 09/05/20 14:57> DS: Data Data Completed and Pending Labs on day of discharge: Preliminary micro results at discharge 08/26/20 13:09 Blood Culture - Preliminary Blood - Venous No growth after 48 hours. 08/26/20 13:09 Blood Culture - Preliminary Blood - Venous No growth after 48 hours. <Harry Michael MD - Last Filed: 09/05/20 14:57> Discharge Plan Discharge Anticipated Discharge Date/Time: 08/31/20 08:53 <Harry Michael MD - Last Filed: 09/05/20 14:57> Patient Disposition: Home, Self-Care <Harry Michael MD - Last Filed: 09/05/20 14:57> Discharge Diagnosis: Acute respiratory failure due to COVID-19 <Harry Michael MD - Last Filed: 09/05/20 14:57> Acute respiratory failure due to COVID-19 <Richard Aquino MD - Last Filed: 09/01/20 15:49> Referrals: Alessandra Díaz DO [Primary Care Provider] - 1 Week <Haryr Michael MD - Last Filed: 09/05/20 14:57> Discharge Medications: New dexamethasone [Decadron] 6 mg tablet 6 mg PO DAILY Qty: 3 RF: 0 Continued ibuprofen 800 mg tablet 800 mg PO Q8H PRN (Reason: pain) Qty: 14 RF: 0 acetaminophen [Tylenol Extra Strength] 500 mg tablet 1,000 mg PO QID PRN (Reason: fever or pain) Qty: 14 RF: 0 ascorbic acid (vitamin C) 250 mg tablet 1 tab PO DAILY RF: 0 ergocalciferol (vitamin D2) 1,250 mcg (50,000 unit) capsule 1 cap PO QWEEK RF: 0 methadone 10 mg/mL Syringe 118 mg PO DAILY RF: 0 methadone [Methadone Intensol] 10 mg/mL Concentrate 118 mg PO DAILY RF: 0 Discontinued azithromycin 250 mg tablet See Rx Instructions .ROUTE .COMPLEX Qty: 6 RF: 0 <Harry Michael MD - Last Filed: 09/05/20 14:57> Discharge Orders: Discharge Order (Routine); Ordered 09/01/20 Ordered By: Richard Aquino <Harry Michael MD - Last Filed: 09/05/20 14:57> Diet: advance to usual diet <Harry Michael MD - Last Filed: 09/05/20 14:57> advance to usual diet <Richard Aquino MD - Last Filed: 09/01/20 15:49> Activity on Discharge: As tolerated <Harry Michael MD - Last Filed: 09/05/20 14:57> As tolerated <Richard Aquino MD - Last Filed: 09/01/20 15:49> Stand Alone Forms: Patient Portal Discharge page <Harry Michael MD - Last Filed: 09/05/20 14:57> Care Plan Goals: Use 2 L of oxygen with ambulation, and take dexamethasone as prescribed <Harry Michael MD - Last Filed: 09/05/20 14:57> Health Concerns: COVID-19 with respiratory failure, obesity <Harry Michael MD - Last Filed: 09/05/20 14:57> Plan of Treatment: To complete dexamethasone at home <Harry Michael MD - Last Filed: 09/05/20 14:57> Assessment: COVID-19 with associated acute hypoxic respiratory failure that has not improved and will be going home with oral dexamethasone for total of 10 days. <Harry Michael MD - Last Filed: 09/05/20 14:57> Discharge Date/Time: 09/01/20 18:06 <Harry Michael MD - Last Filed: 09/05/20 14:57>
--- NOTE | 2020-09-01 15:49 | MHC.CM.PN ---
Pt will be discharged home today with new home oxygen. Family to transport and pt should follow up with oxygen delivery as instructed by RT.
== END 2020-09-01 18:06 | disposition home or self-care (01) | DRG 137 ==
LOC: HO.ED 12:43 → HO.EDOVER 16:49 → HO.IMC 08-27 13:40
PROVIDERS: Admitting Provider Internal Medicine; Emergency Provider Emergency Medicine; PCP Family Medicine; Visit Provider Hospitalist
DX: U07.1 COVID-19 (principal); J96.01 Acute respiratory failure with hypoxia; F11.20 Opioid dependence, uncomplicated; E66.9 Obesity, unspecified; Z68.39 Body mass index [BMI] 39.0-39.9, adult; Z79.899 Other long term (current) drug therapy
CPT/HCPCS: 11104; 36415; 71045; 80048; 80076; 81001; 83605; 83690; 83880; 85025; 87040; 87635; 93005; 96365; 96366; 96375; 99285; J0456; J1100; J2405; J3490

== ENCOUNTER 2020-09-13 15:12 | Outpatient (REF) | payer MEDICAID, SELFPAY ==
--- NOTE | ~2020-09-13 | XR_ITS ---
EXAMINATION: XR CHEST CLINICAL INFORMATION: Acute upper respiratory tract infection COMPARISON: Previous chest x-rays most recent 08/26/2020 TECHNIQUE: 2 views of the chest were obtained. FINDINGS: The cardiac and mediastinal contours are stable. The bilateral pulmonary infiltrates appear improved. There is no pleural effusion or pneumothorax. There is curvature of the lower thoracic spine to the left and mild degenerative change. XR/XR chest 2V IMPRESSION: Improving bilateral infiltrates.
== END 2020-09-13 15:13 | disposition home or self-care (01) ==
LOC: HO.XRAY 15:12
PROVIDERS: PCP Family Medicine; Visit Provider Family Medicine
DX: J06.9 Acute upper respiratory infection, unspecified (principal)
CPT/HCPCS: 71046

== ENCOUNTER 2020-09-26 14:52 | Outpatient (REF) | payer MEDICAID, SELFPAY ==
--- NOTE | ~2020-09-26 | XR_ITS ---
EXAMINATION: XR CHEST CLINICAL INFORMATION: Acute respiratory failure. Hypoxia. COVID-19. COMPARISON: Multiple priors, most recent chest radiograph dated 09/13/2020 TECHNIQUE: Two views of the chest were obtained. FINDINGS: Interval decrease with near-complete resolution of previously seen airspace opacities. No new airspace consolidation. No pleural effusion or pneumothorax. Stable cardiomediastinal silhouette. XR/XR chest 2V IMPRESSION: Interval decrease with near-complete resolution of previously seen airspace opacities.
== END 2020-09-26 14:53 | disposition home or self-care (01) ==
LOC: HO.XRAY 14:52
PROVIDERS: PCP Family Medicine; Visit Provider General Practice
DX: J96.01 Acute respiratory failure with hypoxia (principal); Z86.16 Personal history of COVID-19
CPT/HCPCS: 71046

== ENCOUNTER 2020-11-13 15:47 | Outpatient (REF) | payer MEDICAID, SELFPAY ==
--- NOTE | ~2020-11-13 | XR_ITS ---
EXAMINATION: XR CHEST CLINICAL INFORMATION: Acute respiratory failure with hypoxia. COMPARISON: Most recent chest radiograph dated 09/26/2020. TECHNIQUE: 2 views of the chest were obtained. FINDINGS: The lungs are clear. The cardiomediastinal silhouette is normal in size. There is no pleural effusion or pneumothorax. No acute osseous abnormality. XR/XR chest 2V IMPRESSION: No acute cardiopulmonary findings.
== END 2020-11-13 15:48 | disposition home or self-care (01) ==
LOC: HO.XRAY 15:47
PROVIDERS: PCP Family Medicine; Visit Provider Family Medicine
DX: J96.01 Acute respiratory failure with hypoxia (principal)
CPT/HCPCS: 71046

== ENCOUNTER → 2021-01-23 12:56 | Outpatient (BNVA) | payer MEDICAID, SELFPAY | PROVIDERS: PCP Family Medicine; Referring Provider Family Medicine; Visit Provider Internal Medicine | DX: R06.02 Shortness of breath (principal); R60.0 Localized edema; Z86.16 Personal history of COVID-19 | CPT/HCPCS: 99202 ==

== ENCOUNTER → 2021-02-11 15:24 | Outpatient (BNVA) | payer MEDICAID, SELFPAY | PROVIDERS: PCP Family Medicine; Visit Provider Internal Medicine Pulmonary Disease | DX: J96.11 Chronic respiratory failure with hypoxia (principal); G47.33 Obstructive sleep apnea (adult) (pediatric); U09.9 Post COVID-19 condition, unspecified | CPT/HCPCS: 99202 ==

== ENCOUNTER 2021-03-05 14:54 | Outpatient (REF) | payer MEDICAID, SELFPAY ==
--- NOTE | 2021-03-05 16:15 | PFT_ITS ---
INDICATION: Dyspnea. SPIROMETRY: The FEV1 to FVC 89% with an FEV1 of 1.93 L, which is 71% predicted, and an FVC of 2.19 L, which is 66% predicted. No significant response to bronchodilators noted. Maximum voluntary ventilation 83% predicted. LUNG VOLUMES: Total lung capacity 79% predicted with an expiratory reserve volume of 9% predicted. DIFFUSION CAPACITY: DLCO 91% predicted. COMPARISONS: None. INTERPRETATION: No obstructive ventilatory defect. No significant response to bronchodilators noted. Normal maximum voluntary ventilation. The patient does have a mild restrictive ventilatory defect. In addition to that, there is a severe decrease in the expiratory reserve volume secondary to an elevated BMI. Diffusion capacity is within normal limits. Clinical correlation warranted. MD NICHELLE Perkins/SUJATA / [id number]
== END 2021-03-05 14:55 | disposition home or self-care (01) ==
LOC: HO.RESP 14:54
PROVIDERS: PCP Family Medicine; Visit Provider Internal Medicine Pulmonary Disease
DX: U09.9 Post COVID-19 condition, unspecified (principal); R06.00 Dyspnea, unspecified
CPT/HCPCS: 94060; 94727; 94729

== ENCOUNTER 2021-03-27 15:03 | Outpatient (REF) | payer MEDICAID, SELFPAY ==
--- NOTE | ~2021-03-27 | CT_ITS ---
EXAMINATION: CT CHEST WITHOUT CONTRAST CLINICAL INFORMATION: Post Covid infection COMPARISON: Previous chest x-rays most recent October 2020 TECHNIQUE: Multidetector volumetric CT imaging of the chest was done. Axial MIP volume rendering provided. Sagittal and coronal reformatted images were obtained. This CT examination was performed using dose optimization techniques as appropriate, variously including the following: *Automated exposure control *Adjustment of mA and/or kV according to patient size (this includes techniques or standardized protocols for targeted exams where dose is matched to indication/reason for exam; i.e. extremities or head) *Use of iterative reconstruction technique DLP: 284 mGy-cm FINDINGS: MEDICAL ASSISTANT SUPERVISOR: Normal LUNGS: The lungs are clear with no evidence of inflammation or nodules. MEDIASTINUM: The mediastinum is normal. PLEURA: There is no pleural effusion. No pleural mass or thickening. AXILLA: No lymphadenopathy. UPPER ABDOMEN: There is fatty infiltration of the liver. The gallbladder is been removed. OSSEOUS STRUCTURES: There are degenerative changes of the spine and mild scoliosis.. CT/CT chest wo con IMPRESSION: Unremarkable chest CT. Fatty liver. Fleischner guidelines were followed.
== END 2021-03-27 15:04 | disposition home or self-care (01) ==
LOC: HO.CT 15:03
PROVIDERS: PCP Family Medicine; Visit Provider Internal Medicine Pulmonary Disease
DX: U09.9 Post COVID-19 condition, unspecified (principal)
CPT/HCPCS: 71250

== ENCOUNTER → 2021-04-01 14:48 | Outpatient (REF) | payer MEDICAID, SELFPAY | LOC: HO.SL 14:48 | PROVIDERS: PCP Family Medicine; Visit Provider Internal Medicine Pulmonary Disease | DX: G47.33 Obstructive sleep apnea (adult) (pediatric) (principal) | CPT/HCPCS: 95806 ==

== ENCOUNTER → 2021-10-22 14:20 | Outpatient (BNVA) | payer MEDICAID, SELFPAY | PROVIDERS: PCP Family Medicine; Visit Provider Internal Medicine Pulmonary Disease | DX: G47.33 Obstructive sleep apnea (adult) (pediatric) (principal); R06.02 Shortness of breath | CPT/HCPCS: 99212 ==

== ENCOUNTER → 2022-04-30 15:17 | Outpatient (BNVA) | payer MEDICAID, SELFPAY | PROVIDERS: PCP Family Medicine; Visit Provider Internal Medicine Pulmonary Disease | DX: G47.33 Obstructive sleep apnea (adult) (pediatric) (principal) | CPT/HCPCS: 99212 ==

== ENCOUNTER 2022-09-04 15:11 | Outpatient (REF) | payer MEDICAID, SELFPAY ==
--- NOTE | ~2022-09-04 | US_ITS ---
EXAM: Pelvic Ultrasound CLINICAL INDICATION: Pelvic pain. Dysfunctional uterine bleeding. COMPARISON: Pelvic ultrasound 10/04/2018 TECHNIQUE: The pelvis was evaluated using transabdominal and transvaginal imaging. Today's examination is limited secondary to patient body habitus. FINDINGS: The uterus measures 11.5 x 5.8 x 6.0 cm in longitudinal by AP by transverse dimension. The endometrial stripe is not thickened and measures 0.6 cm. There is a 3.5 cm fundal fibroid (previously 2.2 cm). Neither ovary clearly visualized. There are no abnormal adnexal masses. There is no free fluid in the pelvis. US/US pelvic and transvaginal IMPRESSION: 1. Endometrial stripe measures 6 mm in thickness. Correlation with menstrual cycle recommended. 2. Interval increase in size of now 3.5 cm fundal fibroid. 3. Neither ovary clearly visualized.
== END 2022-09-04 15:12 | disposition home or self-care (01) ==
LOC: HO.US 15:11
PROVIDERS: PCP Family Medicine; Visit Provider Family Medicine
DX: N93.9 Abnormal uterine and vaginal bleeding, unspecified (principal)
CPT/HCPCS: 76830; 76856

== ENCOUNTER → 2022-10-15 13:50 | Outpatient (BNVA) | payer MEDICAID, SELFPAY | PROVIDERS: PCP Family Medicine; Visit Provider Internal Medicine Pulmonary Disease | DX: G47.33 Obstructive sleep apnea (adult) (pediatric) (principal); J96.11 Chronic respiratory failure with hypoxia; Z99.81 Dependence on supplemental oxygen | CPT/HCPCS: 99212 ==

== ENCOUNTER 2022-11-03 13:11 | Outpatient (REF) | payer MEDICAID, SELFPAY ==
[2022-11-03 18:27] LABS: TSH reflex Free T4 1.55 uIU/mL (0.32-4.0)
[2022-11-06 09:03] LABS: Follicle Stimulating Hormone 6.6 mIU/mL; Lutenizing Hormone 2.7 mIU/mL
== END 2022-11-03 13:12 | disposition home or self-care (01) ==
LOC: HO.HHCL 13:11
PROVIDERS: Visit Provider Nurse Practitioner Family
DX: R61 Generalized hyperhidrosis (principal); R23.2 Flushing
CPT/HCPCS: 36415; 83001; 83002; 84443

== ENCOUNTER 2024-05-26 17:49 | Emergency (ER) | payer MEDICAID, SELFPAY ==
--- NOTE | ~2024-05-26 | XR_ITS ---
CLINICAL HISTORY: pain 2 view chest x-ray Comparison: CR/SR - XR CHEST 2V - 12/14/23 12:54 EDT Findings: Mild diffuse reticulonodular pulmonary opacity. Normal size heart. No acute fracture. IMPRESSION: Mild atypical pneumonia. This document has been electronically signed by: Elva Esteban MD on 05/26/2024 18:28:47
[2024-05-26 17:52] VITALS: BP 151/74; PULSE 115; RESP 24; TEMP 37.2; O2SAT 92; BMI 57.6
--- NOTE | 2024-05-26 17:54 | ED_ITS ---
HPI - General Adult General Chief complaint: Dyspnea Stated complaint: Asthma/SOB Time Seen by Provider: 05/26/24 19:30 Source: patient Mode of arrival: ambulatory Limitations: no limitations History of Present Illness ED Provider: Dr. Megan Gee HPI narrative: Patient comes to the emergency room complaining of asthma exacerbation since yesterday, a bit of sore throat. Patient states that she has been having a headache, denies neck pain, neck rigidity or stiffness. Patient states that she uses 2 L of oxygen at baseline at home, states that she has been using oxygen since she was diagnosed with COVID almost 3 years ago. Denies nausea vomiting or diarrhea. Related Data Previous Rx's ?Medication ?Instructions ?Recorded ketorolac 10 mg tablet 10 mg PO Q8H PRN pain #10 tabs 05/26/24 levofloxacin 500 mg tablet 500 mg PO DAILY #6 tabs 05/26/24 oseltamivir 75 mg capsule (Tamiflu) 75 mg PO BID 5 days #10 caps 05/26/24 prednisone 50 mg tablet 50 mg PO DAILY #5 tabs 05/26/24 Allergies Allergy/AdvReac Type Severity Reaction Status Date / Time No Known Allergies Allergy Verified 05/26/24 17:54 Review of Systems 2 Review of Systems: Constitutional : No Weight loss, No Fever, No Chills, No Night Sweats, No Fatigue, No Malaise ENT/Mouth : No Hearing loss, No Ear Pain, No Nasal Congestion, No Sinus Pain, No Hoarseness, No sore throat, No Rhinorrhea, No Swallowing Difficulty Eyes: No Eye Pain, No Swelling, No Redness, No Foreign Body, No Discharge, No Vision Changes Cardiovascular : No Chest Pain, complaining of chronic dyspnea on exertion, no orthopnea, no palpitations Respiratory : Complaining of worsening cough, more wheezing than usual Gastrointestinal : No Nausea, No Vomiting, No Diarrhea, No Constipation, No abdominal Pain, No Hematochezia, No Melena Genitourinary : no irregular bleeding, No Dysuria, No Urinary Frequency, No Hematuria, No Urinary Incontinence, No Urgency, No Flank Pain, No Urinary Flow Changes, No Hesitancy Musculoskeletal : No joint pain, No Myalgias, No Joint Swelling Skin : No Skin Lesions, No rash Neuro : No Weakness, No Numbness, No Paresthesias, No Loss of Consciousness, No Dizziness, complaining of Headache Psych : No Anxiety/Panic, No Depression, No SI/HI/AH/VH, No Social Issues, Heme/Lymph: No Bruising, No Bleeding,No Lymphadenopathy Endocrine : No Polyuria, No Polydipsia, No Temperature Intolerance [facility] Social History Social History Advance Directives: No Advance Directives Information Provided: Yes Physical Exam ED Vital Signs: Vital Signs - 24 hr 05/26/24 17:52 05/26/24 19:26 Temperature 98.9 F 99.4 F Pulse Rate 115 H 88 Respiratory Rate 24 H 16 Blood Pressure 151/74 H Pulse Oximetry 92 96 Oxygen Delivery Method Room Air Nasal Cannula Oxygen Flow Rate 2 BMI result Body Mass Index 57.6 Const Other: Appearance: Alert. Oriented X3. No acute distress. Eyes: Pupils equal, round and reactive to light. ENT: Pharynx normal. Neck: Normal inspection. Neck supple. No lymph nodes noted. No crepitus CVS: Normal heart rate and rhythm. Pulses normal. Normal S1 and S2 Respiratory: No respiratory distress. Breath sounds normal. No Wheezing. No rales , oxygen saturation 96% on 2 L Abdomen: Soft and nontender. No rigidity. No distention. Skin: Skin warm and dry. Normal skin color. Normal skin turgor. Extremities: No lower extremity edema. No Lacerations. No Rash Neuro: Oriented X 3. No motor deficit. No sensory deficit. Moving all extremities. No slurred speech. CN 2 through 12 grossly intact Psych: calm, cooperative, normal affect Course Course Course Narrative: RME, this is a rapid medical exam performed by Saravanan Hernandez please refer to primary provider for complete H&P- 48-year-old female presents for evaluation of shortness of breath. She reports a history of asthma. She has been using her inhalers with minimal relief. She also reports that she has p.r.n. oxygen at home. Her lungs are clear to auscultation but her oxygen saturation is 90 to 92% plan for labs, EKG, chest x-ray and viral swabs. The patient does complain of chest pain Medical Decision Making Medical Decision Making MDM Narrative: My interpretation of labs: No significant abnormality in patient's hematology and chemistry, serology positive for influenza A Chest x-ray shows atypical pneumonia. Given patient's past medical history and current symptoms, we will she had the pneumonia with antibiotics. Patient was ambulated, oxygen saturation remained in the mid 90s with her usual 2 L of oxygen Patient was given 1 dose of IM Toradol for headache and generalized pain. Differential Diagnosis Differential Diagnoses: The differential diagnosis associated with the presentation includes (Influenza, COVID, RSV, pneumonia, asthma exacerbation) Admission/Observation Consideration of admission/observation: Escalation of care including admission/observation considered (Given patient's past medical history and presentation, observation was considered) Lab Data MDM Lab Attestation statement: I reviewed the patient's lab results. 05/26/24 18:10 05/26/24 18:10 Labs: Lab Results 05/26/24 Range/Units 18:10 WBC 7.2 (4.8-10.8) X10*3/uL RBC 4.00 L (4.20-5.50) X10*6/uL Hgb 12.1 (12.0-16.0) g/dl Hct 36.6 L (37.0-47.0) % MCV 91.5 (80.0-98.0) fL MCH 30.3 (27.0-33.0) pg MCHC 33.1 (31.0-35.0) g/dl RDW 13.0 (11.0-16.0) % Plt Count 210 (160-400) X10*3/uL MPV 11.7 (9.4-12.3) fL Immature Gran % (Auto) 0.4 (0.0-0.4) % Neut % (Auto) 81.1 H (45-73) % Lymph % (Auto) 6.2 L (20-40) % [place] % (Auto) 10.8 (2-11) % Eos % (Auto) 1.1 (0-4) % Baso % (Auto) 0.4 (0-2) % Lymph # (Auto) 0.5 L (1.2-4.9) X10*3/uL [place] # (Auto) 0.8 (0.1-1.2) X10*3/uL Eos # (Auto) 0.1 (0.0-0.4) X10*3/uL Baso # (Auto) 0.0 (0.0-0.2) X10*3/uL Abs Immat Gran (auto) 0.03 (0.00-0.03) X10*3/uL Absolute Neuts (auto) 5.9 (2.0-8.3) x10*3/uL Absolute Nucleated RBC 0.000 (0.0-0.012) X10*3/uL Nucleated RBC % (auto) 0.0 (0.0-0.2) /100WBC PT 13.9 H (10.9-12.4) SEC INR 1.2 H (0.9-1.1) Sodium 136 (135-145) mmol/L Potassium 4.2 (3.3-5.1) mmol/L Chloride 100 (96-108) mmol/L Carbon Dioxide 29 (22-29) mmol/L Anion Gap 11 L (12-20) BUN 10 (9-16) mg/dL Creatinine 0.79 (0.5-1.4) mg/dL Estim Creat Clear Calc 119.9 Estimated GFR > 60 Random Glucose 156 H (60-115) mg/dL Calcium 9.7 (8.4-10.2) mg/dL Total Bilirubin 0.4 (0.0-1.0) mg/dL AST 63 H (5-31) U/L ALT 76 H (0-31) U/L Alkaline Phosphatase 59 (39-117) U/L Troponin I High Sens 6.2 (<3.5-17.0) ng/L Total Protein 8.0 (6.5-8.0) g/dL Albumin 4.2 (3.5-5.0) g/dL Lipase 14 (8-78) U/L Influenza Type A (PCR) POSITIVE A (Negative) Influenza Type B (PCR) NEGATIVE (Negative) RSV RNA Qual (PCR) NEGATIVE (Negative) SARS-CoV-2 RNA (RT-PCR) NEGATIVE (Negative) Independent Interpretation I performed an independent interpretation of an: EKG and Plain X-Ray Interpretation: My interpretation of EKG: Normal sinus rhythm, heart rate 100, no ST segment depression or elevation, no T-wave inversion, QTC 443 Radiology Impression Discussion of test interpretation with radiology: I have reviewed the radiologist's reading. Radiologist Impression: Mild diffuse reticulonodular pulmonary opacity. Normal size heart. No acute fracture. IMPRESSION: Mild atypical pneumonia. Critical Care Time Critical Care Time Critical Care Time: Yes Total Critical Care Time: 45 Attestation: I have personally provided critical care time. Time includes review of lab data, radiology results, discussion with consultants, and monitoring for potential decompensation. Intervention performed as documented. Discharge Plan Discharge Clinical Impression: Influenza A, Pneumonia Patient Disposition: Home, Self-Care Instructions: Influenza (ED), Pneumonia (ED) Additional Instructions: Please follow-up with your primary care physician tomorrow. If you have any worsening or new symptoms, please return to the emergency room or call 911 Prescriptions: New oseltamivir [Tamiflu] 75 mg capsule 75 mg PO BID 5 Days Qty: 10 0RF ketorolac 10 mg tablet 10 mg PO Q8H PRN (Reason: pain) Qty: 10 0RF Rx Instructions: maximum total duration of 5 days from all oral, intranasal, or parenteral formulations levofloxacin 500 mg tablet 500 mg PO DAILY Qty: 6 0RF prednisone 50 mg tablet 50 mg PO DAILY Qty: 5 0RF Print Language: Bangladeshi
--- NOTE | 2024-05-26 17:55 | ECG_ITS ---
Test Reason : PAIN Blood Pressure : */* mmHG Vent. Rate : 100 BPM Atrial Rate : 100 BPM P-R Int : 154 ms QRS Dur : 92 ms QT Int : 344 ms P-R-T Axes : 61 4 84 degrees QTcB Int : 443 ms Normal sinus rhythm Biatrial enlargement Left ventricular hypertrophy ( R in aVL , Ashok product ) Nonspecific T wave abnormality Abnormal ECG No previous ECGs available Referred By: Dimitri Hernandez Electronically Signed By: TA HARDIN
[2024-05-26 18:24] LABS: Basophils Percent Auto 0.4 % (0-2); Eosinophils Absolute Auto 0.1 X10*3/uL (0.0-0.4); Eosinophils Percent Auto 1.1 % (0-4); Hematocrit 36.6 % (37.0-47.0); Hemoglobin 12.1 g/dl (12.0-16.0); Imm Gran Abs Auto 0.03 X10*3/uL (0.00-0.03); Imm Gran Pct Auto 0.4 % (0.0-0.4); Lymphocytes Absolute Auto 0.5 X10*3/uL (1.2-4.9); Lymphocytes Percent Auto 6.2 % (20-40); MANUAL DIFF FLAG NO; Mean Corpuscular HGB Conc 33.1 g/dl (31.0-35.0); Mean Corpuscular Hemoglobin 30.3 pg (27.0-33.0); Mean Corpuscular Volume 91.5 fL (80.0-98.0); Mean Platelet Volume 11.7 fL (9.4-12.3); Monocytes Absolute Auto 0.8 X10*3/uL (0.1-1.2); Monocytes Percent Auto 10.8 % (2-11); Neutrophils Absolute Auto 5.9 x10*3/uL (2.0-8.3); Neutrophils Percent Auto 81.1 % (45-73); Platelet Count 210 X10*3/uL (160-400); White Blood Count 7.2 X10*3/uL (4.8-10.8)
[2024-05-26 18:31] LABS: INTERNATIONAL NORM RATIO 1.2 (0.9-1.1); Prothrombin Time 13.9 SEC (10.9-12.4)
[2024-05-26 18:45] LABS: Alanine Aminotransferase 76 U/L (0-31); Albumin Level 4.2 g/dL (3.5-5.0); Anion Gap 11 (12-20); Aspartate Amino Transferase 63 U/L (5-31); Bilirubin Total 0.4 mg/dL (0.0-1.0); Blood Urea Nitrogen 10 mg/dL (9-16); Calcium 9.7 mg/dL (8.4-10.2); Carbon Dioxide 29 mmol/L (22-29); Chloride 100 mmol/L (96-108); Creatinine Clr Calc Pharmacy 119.9; Estimated Glomerular Filt Rate > 60; Glucose Random 156 mg/dL (60-115); Lipase 14 U/L (8-78); Potassium 4.2 mmol/L (3.3-5.1); Sodium 136 mmol/L (135-145)
[2024-05-26 18:46] LABS: Troponin-I High Sensitivity 6.2 ng/L (<3.5-17.0)
[2024-05-26 18:48] LABS: Alkaline Phosphatase 59 U/L (39-117)
[2024-05-26 19:01] LABS: Influenza A PCR POSITIVE (Negative); Influenza B PCR NEGATIVE (Negative); Resp Syncy Virus RNA Qual PCR NEGATIVE (Negative); SARS COV2 PCR INHOUSE NEGATIVE (Negative)
--- NOTE | 2024-05-26 19:25 | PC.NURSE ---
pt from [facility] c/o ALEX/body aches/sinus congestion/dry cough x yesterday. resp are even and unlabored lung sounds cta sats 96% on baseline o2. pt requests medication for ALEX and to be d/c home, aware awaiting provider eval. nad, resting comfortably in stretcher spouse at bedside. call carrillo within reach. ice pack given per request.
[2024-05-26 19:26] VITALS: PULSE 88; RESP 16; TEMP 37.4; O2SAT 96
[2024-05-26 19:45] VITALS: O2SAT 95
[2024-05-26] MEDS: Ketorolac Tromethamine 60 MG/2 ML VIAL IM (20:36)
[2024-05-26] MEDS: Oseltamivir Phosphate 75 MG CAPSULE PO (20:36)
[2024-05-26] MEDS: levoFLOXacin 500 MG TABLET PO (20:36)
[2024-05-26] MEDS: predniSONE 20 MG TABLET 60 MG PO (20:36)
[2024-05-26 20:45] VITALS: BP 148/86; PULSE 107; RESP 20; TEMP 37.4; O2SAT 95
== END 2024-05-26 20:45 | disposition home or self-care (01) ==
PROVIDERS: Physician Assistant; Emergency Provider Emergency Medicine
DX: J10.00 Influenza due to other identified influenza virus with unspecified type of pneumonia (principal); R06.02 Shortness of breath; J02.9 Acute pharyngitis, unspecified; J45.909 Unspecified asthma, uncomplicated; Z99.81 Dependence on supplemental oxygen
CPT/HCPCS: 0241U; 71046; 80053; 83690; 84484; 85025; 85610; 93005; 96372; 99281; 99284; 99285; J1885

== ENCOUNTER → 2024-05-26 17:55 | Outpatient (BNV) | payer MEDICAID, SELFPAY | PROVIDERS: Visit Provider Radiology Diagnostic Radiology | DX: J18.9 Pneumonia, unspecified organism (principal) | CPT/HCPCS: 71046 ==

== ENCOUNTER 2024-05-26 21:52 | Emergency (ER) | payer MEDICAID, SELFPAY ==
[2024-05-26 21:55] VITALS: BP 133/58; PULSE 91; RESP 20; TEMP 37.1; O2SAT 96; BMI 45.7
[2024-05-26] MEDS: Ondansetron ODT 4 MG TAB.RAPDIS TRANSLINGU (21:59)
== END 2024-05-27 00:40 | disposition left against medical advice (07) ==
PROVIDERS: Emergency Provider Emergency Medicine
DX: R11.10 Vomiting, unspecified (principal); J10.1 Influenza due to other identified influenza virus with other respiratory manifestations; Z53.21 Procedure and treatment not carried out due to patient leaving prior to being seen by health care provider
CPT/HCPCS: 99281

== ENCOUNTER 2024-07-06 17:42 | Emergency (ER) | payer MEDICAID, SELFPAY ==
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
[2024-07-06 17:49] VITALS: BP 190/110; PULSE 95; O2SAT 98
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
[2024-07-06 18:29] VITALS: BP 155/82; PULSE 86; RESP 18; TEMP 36.8; O2SAT 97; BMI 56.9
[2024-07-06] MEDS: Ketorolac Tromethamine 30 MG/ML VIAL IM (18:36)
[2024-07-06] MEDS: Acetaminophen 325 MG TABLET 975 MG PO (18:36)
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
--- OUTSIDE RECORDS SUMMARY | 2024-07-06 18:49 | XMS_ITS | Encounter Summary ---
Author Organization [employer] Address [address] [facility] 7t [place] [address] Care Team Providers Care Adult Neurologist Name Role Phone Alessandra Díaz DO Primary Care Provider + [phone] Encounter Details Date Type Department Care Team ([facility] st Contact Info) Description 06/15/2024 Telephone [facility] MEDICINE [address] [place] [address] Alessandra Díaz DO [address] [place], [place] [phone] Social History Tobacco Use Types Packs/Day Years [...] is your housing situation today? I have caterina lloyd 07/14/[address] you [...] to shut off services in your home? No 05/30/2024 Depression Answer Date Recorded Patient Health Questionnaire-2 [...] encounter Miscellaneous Notes * Telephone Encounter - Chanel Saucedo RN - 06/15/2024 10:21 AM EST T/C to pt for status check. Pt reports that she is feeling a little better and states she has started taking prednisone as rx. Pt agrees to call [facility] if symptoms worsen. documented in this encounter Plan of Treatment Upcoming Encounters Date Type Department Care Team (Late st Contact Info) Description 08/31/2024 10:15 AM EDT Office Visit [facility] MEDICINE [address] [place] [address] Alessandra Díaz DO [address] [place] [address] documented as of this encounter Visit Diagnoses Not on filedocumented in this encounter Additional Health Concerns Assessment Noted Time PHQ-9 Depression Total Score: 0 11/12/19 24 12:12 PM EDT documented as of this encounter Care Teams Adult Neurologist Relationship Specialty Start Date End Date Alessandra Díaz DO [address] [place] [address] PCP - General Family Medicine 04/27/18 documented as of this encounter
--- OUTSIDE RECORDS SUMMARY | 2024-07-06 18:49 | XMS_ITS | Encounter Summary ---
Author Organization [employer] Address [address] [facility] 7t [place] [address] Care Team Providers Care Payroll Coordinator Name Role Phone ArjunAlessandra Primary Care Provider + [phone] Reason for Visit * Reason Comments Med Refill Encounter Details Date Type Department Care Team ([facility] st Contact Info) Description 03/08/2024 Refill [facility] [address] [place] [address] Anuja Interiano MD [address] [place] [address] Acute atopic conjunctivitis, bilateral Social History Tobacco Use Types Packs/Day Years [...] is your housing situation today? I have caterinajuliette lloyd 07/14/[address] you [...] Recorded Patient Health Questionnaire-2 Score 0 11/12/2023 Comments Unknown Sex and Gender Information Value Date Recorded Sex Assigned at Female 02/24/2022 10:15 AM EDT Legal Sex Female 10:15 AM EDT Gender Identity Female 02/24/2022 10:15 AM EDT Sexual Orientation Straight 02/24/2022 10 :15 AM EDT documented as of this encounter Plan of Treatment Upcoming Encounters Date Type Department Care Team (Late st Contact Info) Description 08/31/2024 10:15 AM EDT Office Visit [facility] MEDICINE [address] [place] [address] Alessandra Díaz DO [address] [place] [address] documented as of this encounter Visit Diagnoses Diagnosis Acute atopic conjunctivitis, bilateral documented in this encounter Additional Health Concerns Assessment Noted Time PHQ-9 Depression Total Score: 0 11/12/19 24 12:12 PM EDT documented as of this encounter Care Teams Payroll Coordinator Relationship Specialty Start Date End Date Alessandra Díaz DO [address] [place] [address] PCP - General Family Medicine 04/27/18 documented as of this encounter
--- OUTSIDE RECORDS SUMMARY | 2024-07-06 18:49 | XMS_ITS | Encounter Summary ---
Author Organization [employer] Address [address] [facility] 7t [place] [address] Care Team Providers Care Associate Manager Name Role Phone Alessandra Díaz DO Primary Care Provider + [phone] Encounter Details Date Type Department Care Team ([facility] st Contact Info) Description 04/03/2023 Telephone [facility] MEDICINE [address] [place] [address] Alessandra Díaz DO [address] [place], [place] [phone] Social History Tobacco Use Types Packs/Day Years Used Date Smoking Tobacco: Never Passive Smoke Exposure: Never Smokeless Tobacco: Never Alcohol Use Standard Drinks/Week Comments Never 0 (1 standard drink = 0.6 oz pur e alcohol) Housing Stability Answer Date Recorded What is your housing situation today? I have caterina lloyd 02/09/[address] you li ve. Do you have problems with any of the following? None of the above 02/09/2023 Food Insecurity Answer Date Recorded Within the past 12 months, y ou worried that your food would run out before you got money to buy more: Never True 02/09/2023 Within the past 12 months,th e food you bought just didn't last and you didn't have enough money to get more: Never True Transportation Answer Date Recorded In the past 12 months, has l ack of transportation kept you from medical appts, meetings, work or from getting things needed for daily living? No 02/09/2023 Utilities Answer Date Recorded In the past 12 months, has t he electric, gas, oil or water company threatened to shut off services in your home? No 02/09/2023 Depression Answer Date Recorded Patient Health Questionnaire-2 Score 0 05/09/2022 Comments Unknown Sex and Gender Information Value [...] Description 08/31/2024 10:15 AM EDT Office Visit [facility] MEDICINE [address] [place], [place] [phone] Alessandra Díaz DO [address] [place] [address] documented as of this encounter Visit Diagnoses Not on filedocumented in this encounter Care Teams Associate Manager Relationship Specialty Start Date End Date Alessandra Díaz DO [address] [place] [address] PCP - General Family Medicine 04/27/18 documented as of this encounter
--- OUTSIDE RECORDS SUMMARY | 2024-07-06 18:49 | XMS_ITS | Encounter Summary ---
Author Organization [employer] Address [address] [facility] 7 [place] [address] Care Team Providers Care Transport Coordinator Name Role Phone Alessandra Díaz DO Primary Care Provider + [phone] Reason for Visit * Reason Onset Date Comments Call Back Request 06/15/2024 Encounter Details Date Type Department Care Team ([facility] st Contact Info) Description 06/15/2024 Telephone [facility] MEDICINE [address] [place] [address] Alessandra Díaz DO [address] [place] [address] Call Back Request Social History Tobacco Use Types Packs/Day Years [...] encounter Miscellaneous Notes * Telephone Encounter - Petrona Roldan - 06/29/2024 12:06 PM EST Pt at assistant front desk manager reported that [facility] informed her that portable concentrator was not approved by insurance and that her O2 service would be discontinued. Modeling Director called [facility] and spoke with Ernesto who denied pt being discharged from [facility]. Ernesto states though denied concentrator, pt can be tested but will need rx for test for conserving device to maintain sats >90 . If pt meets criteria, dme can be resubmitted to . Modeling Director called pt and informed of above and pt said that she does not want to continue with the DME order for portable o2 concentrator at this time. Pt mentioned she has appts with cardio and police clerk in June and pcp appt in August. Modeling Director advised to call pcp office if need anything further. Pt verbalized understanding. * Telephone Encounter - Petrona Roldan - 06/27/2024 4:17 PM EST Pt at assistant front desk manager requesting status of DME concentrator. Modeling Director called [facility] who stated in order to provide concentrator to pt, they will also need to provide O2 w/cannula which requires rx, documentation and process would take over 1 week. Call to [facility] as found that documentation had also been sent to [facility] for processing. Per conv with [facility], rx needed updates (2nd dx, etc). Modeling Director faxed updated rx and [facility] stated would work on it as soon as received. Rx also emailed to [facility] blooming mill supervisor as requested in order to expedite(approved to send via encrypted email per conv with Alisia Nicolas). Modeling Director s/w pt and [facility]. Modeling Director asked which vendor pt would like to proceed with based on order statuses and pt agreed to stay with [facility]. Modeling Director notified updated rx would be faxed to [facility]. Pt verbalized understanding of plan and stated would go to [facility] in person this afternoon. * Telephone Encounter - Marge Cerda - 06/20/2024 3:28 PM EST Walking Test was sent via Fax on 06/17/24. Confirmation was uploaded to Media. * Telephone Encounter - Lien Cobb RN - 06/16/2024 11:26 AM EST TC placed to Ov with [facility] at [phone] to determine what qualifies and disqualifies pt for O2/ Walk Test. No answer, voicemail did not identify individual. LVM with no pt identifiers requesting call back to office and ask to speak to blue team nurses. TC placed to Sudahkar with [facility] at [phone] to determine what qualifies and disqualifies pt for O2 / Walk Test. Sudhakar states the dx of asthma is good. Sudhakar states if the dx is hypoxia, this will need to be done every 90 days compared to the dx of asthma which will not require it to be done every 90 days. Sudhakar states the pt needs to be tested at rest on RA first and if the O2 saturation goes below 88% at rest, she will qualify with no further testing. If the O2 saturation does not go to 88% or below at rest, the pt will need to ambulate on room air and O2 saturation needs to be at 88% or below. If the pt does go to 88% or below on room air, the pt needs to ambulate with oxygen to show improvement. Sudhakar asked about status of overnight script. Advised we will get back to him regarding script. * Telephone Encounter - Jose Prashant - 06/15/2024 4:44 PM EST Tc form Ov with [facility] stating they have an order for pt to start oxygen but pt does not qualify for O2. Ov stated pt has been giving them a hard time because she thinks she qualifies. Ov would likea call back from nurse to further discuss. Please contact [facility] at [phone]. documented in this encounter Plan of Treatment Upcoming Encounters Date Type Department Care Team (Late st Contact Info) Description 08/31/2024 10:15 AM EDT Office Visit [facility] MEDICINE [address] [place] [address] Alessandra Díaz DO [address] [place] [address] documented as of this encounter Visit Diagnoses Not on filedocumented in this encounter Additional Health Concerns Assessment Noted Time PHQ-9 Depression Total Score: 0 11/12/19 24 12:12 PM EDT documented as of this encounter Care Teams Transport Coordinator Relationship Specialty Start Date End Date Alessandra Díaz DO [address] [place] [address] PCP - General Family Medicine 04/27/18 documented as of this encounter
--- OUTSIDE RECORDS SUMMARY | 2024-07-06 18:49 | XMS_ITS | Encounter Summary ---
Author Organization [employer] Address [address] [facility] 7 [place] [address] Care Team Providers Care Master Fisher Name Role Phone Alessandra Díaz DO Primary Care Provider + [phone] Reason for Visit * Reason Onset Date Comments Referral 06/06/2024 Encounter Details Date Type Department Care Team (Late st Contact Info) Description 06/06/[address] [facility] MEDICINE [address] [place] [address] Alessandra Díaz DO [address] [place] [address] Referral Social History Tobacco Use Types Packs/Day Years [...] your housing situation today? I have caterina sing 07/14/[address] you li [...] encounter Miscellaneous Notes * Telephone Encounter - Magdy Garcia RN - 06/21/2024 1:53 PM EST All documents were faxed to [facility] as requested. RN called patient to confirm that she received her oxygen supplies. Patient reports that she only had a small supply of oxygen but it didn't last herlong. Patient states they told her they were waiting on documents from the PCP office before they gave her the O2. Patient informed the documents were faxed on 06/17/24. Patient informed RN will contact [facility] and return call to her with more info. Spoke to Rachel at [facility] who reports she needs someone from the local [facility] office to return call to us so she will contact them and request they call the office GREG with an update on the order. * Telephone Encounter - Nai Wagner - 06/14/2024 12:08 PM EST Tc from pt spouse stating pt needs new prescription for O2, script must specify number less than 91to be approved. Any questions contact pt [phone] lithuanian * Telephone Encounter - Ania Vera RN - 06/06/2024 5:06 PM EST TC placed to [facility] [phone] who reports the patient called them and requested portable O2 however they are unable to provide portable O2 to the patient without an order from the provider. Patient was Rx'd O2 back in 2020 from an [facility] hospitalization. RN called patient [phone] to inquire on above. Patient reports she was seen at [facility] ED on 05/26/24 and diagnosed with flu and PNA. Patient reports she feels she needs portable O2 for when leaving home. Patient is currently on 2L of O2 at home daily. [facility] . RN scheduled patient for an appointment w/ PCP on 06/10 to disc uss O2 needs and for walking test. Patient agreed to appointment date and time. Patient to f/u PR[facility]. * Telephone Encounter - Jenni Wyman - 06/06/2024 3:54 PM EST Tc from pt requesting a referral for her oxygen's to be sent VIA fax [phone] , [place] [address] documented in this encounter Plan of Treatment Upcoming Encounters Date Type Department Care Team (Late st Contact Info) Description 08/31/2024 10:15 AM EDT Office Visit [facility] MEDICINE [address] [place] [address] Alessandra Díaz DO [address] [place] [address] documented as of this encounter Visit Diagnoses Not on filedocumented in this encounter Additional Health Concerns Assessment Noted Time PHQ-9 Depression Total Score: 0 11/12/19 24 12:12 PM EDT documented as of this encounter Care Teams Master Fisher Relationship Specialty Start Date End Date Alessandra Díaz DO [address] [place] [address] PCP - General Family Medicine 04/27/18 documented as of this encounter
--- OUTSIDE RECORDS SUMMARY | 2024-07-06 18:49 | XMS_ITS | Encounter Summary ---
Author Organization [employer] Address [address] [facility] 7 [place] [address] Care Team Providers Care Strategy Consultant Name Role Phone Alessandra Díaz DO Primary Care Provider + [phone] Reason for Visit * Reason Comments Med Refill Encounter Details Date Type Department Care Team ([facility] st Contact Info) Description 06/23/2024 Refill [facility] MEDICINE [address] [place] [address] Alessandra Díaz DO [address] [place] [address] Social History Tobacco Use Types Packs/Day Years [...] Description 08/31/2024 10:15 AM EDT Office Visit [facility] MEDICINE [address] [place] [address] Alessandra Díaz DO [address] [place] [address] documented as of this encounter Visit Diagnoses Not on filedocumented in this encounter Additional Health Concerns Assessment Noted Time PHQ-9 Depression Total Score: 0 11/12/19 24 12:12 PM EDT documented as of this encounter Care Teams Strategy Consultant Relationship Specialty Start Date End Date Alessandra Díaz DO [address] [place] [address] PCP - General Family Medicine 04/27/18 documented as of this encounter
--- OUTSIDE RECORDS SUMMARY | 2024-07-06 18:49 | XMS_ITS | Encounter Summary ---
Author Organization [employer] Address [address] [facility] 7 [place] [address] Care Team Providers Care Cook Ship Name Role Phone Alessandra Díaz DO Primary Care Provider + [phone] Reason for Visit * Reason Comments Med Refill Encounter Details Date Type Department Care Team ([facility] st Contact Info) Description 06/17/2024 Refill [facility] MEDICINE [address] [place] [address] Alessandra Díaz DO [address] [place] [address] Social History Tobacco Use Types Packs/Day Years [...] Description 08/31/2024 10:15 AM EDT Office Visit [facility] MEDICINE [address] [place] [address] Alessandra Díaz DO [address] [place] [address] documented as of this encounter Visit Diagnoses Not on filedocumented in this encounter Additional Health Concerns Assessment Noted Time PHQ-9 Depression Total Score: 0 11/12/19 24 12:12 PM EDT documented as of this encounter Care Teams Cook Ship Relationship Specialty Start Date End Date Alessandra Díaz DO [address] [place] [address] PCP - General Family Medicine 04/27/18 documented as of this encounter
--- OUTSIDE RECORDS SUMMARY | 2024-07-06 18:49 | XMS_ITS | Encounter Summary ---
Author Organization [employer] Address [address] [facility] 7 [place] [address] Care Team Providers Care Foreign Service Officer Name Role Phone Alessandra Díaz DO Primary Care Provider [phone] Reason for Visit * Reason Onset Date Comments Nurse Triage 06/14/2024 Difficulty breat judith, maintaining O2 levels above 90% Encounter Details Date Type Department Care Team (Late st Contact Info) Description 06/14/2024 Telephone [facility] [address] [place] [address] Alessandra Díaz DO [address] [place], [place] [phone] Nurse Triage (Difficulty breathing, maintaining O2 levels above 90%) Social History Tobacco Use Types Packs/Day Years [...] encounter Miscellaneous Notes * Telephone Encounter - Merle Redding RN - 06/14/2024 3:27 PM EST Assessment: Patient presents to [facility] reporting the [facility] is unable to fill Portable O2 script given at [facility] OV with Usha STEIN on 06/10/24. Patient reports she was formerly on home O2 and can no longer get refills of O2, however would prefer Portable O2. Patient states sheis still having trouble maintaining O2 sat above 90% at home after recently having Pneumonia and Flu. Patient has a Pulmonology alejandra 07/06/24 and there is no sooner availability. Portable O2 script was faxed to [facility]- call placed and was informed the 6 minute Walking test showsPatient de-SATs to 90% with ambulation but [facility] will not cover O2 until de-SAT is below 89%. Call to [facility] as Patient was previously on home O2 supplied by [facility]. Spoke to Chiquis, Patient'saccount has been inactive since 2021 due to not having any notes supporting the need for Home O2. Patient reports this is because her breathing was better but now it is not. Patient also went to [facility] to see if they would fill her portable O2 script and was informed her walking test does not qualify her for home O2- will need to show she deSATs below 89% (proven by a 6 minute walking test). VS as follows (if applicable): O2 sat 96 % on room air, complaining of SOB O2 sat 100% on 2L No Known Allergies Current Outpatient Medications Medication Sig Dispense Refill acetaminophen (Tylenol 8 Hour) 650 MG ER tablet TAKE 1 TABLET BY MOUTH EVERY 6 HOURS NEEDED FOR PAIN OR FEVER Ascorbic Acid (vitamin C) 250 MG tablet TAKE 1 TABLET BY MOUTH ONCE DAILY WITH IRON (FERROUS SULFATE) 90 tablet 3 baclofen (Lioresal) 10 MG tablet TAKE 1 TABLET BY MOUTH THREE TIMES DAILY NEEDED FOR MUSCLE SPASMS OR PAIN 60 tablet 2 Blood Pressure kit 1 each 1 (one) time per week. 1 kit 0 cetirizine (ZyrTEC) 10 MG tablet Take 1 tablet (10 mg) by mouth Once per day. 30 tablet 11 D3 Super Strength 50 MCG (2000 UT) capsule TAKE 1 CAPSULE BY MOUTH EVERY DAY 90 capsule 1 Diclofenac Sodium 1 % gel APPLY 2 GRAMS TO AFFECTED AREA(S) TWICE DAILY PRN PAIN docusate sodium (Colace) 100 MG capsule TAKE 1 CAPSULE BY MOUTH TWICE DAILY FeroSul 325 (65 Fe) MG tablet TAKE 1 TABLET BY MOUTH EVERY DAY 90 tablet 3 FLUoxetine (PROzac) 20 MG capsule TAKE 1 CAPSULE BY MOUTH EVERY DAY 30 capsule 2 fluticasone (Flonase) 50 MCG/ACT nasal spray Administer 2 sprays into each nostril Once per day. Shake gently. Before first use, prime pump. After use, clean tip and replace cap. 16 g 11 fluticasone furoate (Arnuity Ellipta) 200 MCG/ACT inhaler Inhale 1 puff Once per day. Rinse mouth with water after use to reduce aftertaste and incidence of candidiasis. Do not swallow. 1 each 11 hydrOXYzine pamoate (Vistaril) 25 MG capsule TAKE 1 CAPSULE BY MOUTH EVERY 6 HOURS NEEDED FOR ANXIETY 30 capsule 2 Ketotifen Fumarate (Alaway) 0.035 % solution Administer 1 drop into affected eye(s) if needed in the morning and at bedtime (eye itching). 10 mL 3 methadone (Dolophine) 10 MG/ML solution Take 118 mg by mouth Once per day. SUMAtriptan (Imitrex) 25 MG tablet TAKE 1 TABLET BY MOUTH AT ONSET OF MIGRAINE. MAY REPEAT ONCE AFTER 2 HOURS IF NEEDED DO NOT EXCEED 2 DOSES IN 24 HOURS 9 tablet 3 tolterodine LA (Detrol LA) 4 MG 24 hr capsule Take 1 capsule (4 mg) by mouth Once per day. Do not crush, chew, or split. 90 capsule 3 triamcinolone (Kenalog) 0.1 % cream Apply topically 2 times daily for 28 days. Mix with cerave and apply bid 80 g 2 Ventolin HFA 108 (90 Base) MCG/ACT inhaler INHALE 2 PUFFS BY MOUTH EVERY 6 HOURS NEEDED FOR COUGH, WHEEZING, OR SHORTNESS OF BREATH 18 g 1 No current facility-administered medications for this visit. 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 Patient agreeable to sick visit on Blue team today. Rreport given to Amy ACEVEDO. Merle Redding RN documented in this encounter Plan of Treatment Upcoming Encounters Date Type Department Care Team (Late st Contact Info) Description 08/31/2024 10:15 AM EDT Office Visit [facility] MEDICINE [address] [place] [address] Alessandra Díaz DO [address] [place] [address] documented as of this encounter Visit Diagnoses Not on filedocumented in this encounter Additional Health Concerns Assessment Noted Time PHQ-9 Depression Total Score: 0 11/12/19 24 12:12 PM EDT documented as of this encounter Care Teams Foreign Service Officer Relationship Specialty Start Date End Date Alessandra Díaz DO [address] [place] [address] PCP - General Family Medicine 04/27/18 documented as of this encounter
--- OUTSIDE RECORDS SUMMARY | 2024-07-06 18:49 | XMS_ITS | Encounter Summary ---
Author Organization [employer] Address [address] [facility] [address] [place] [address] Care Team Providers Care Bale Tie Machine Operator Name Role Phone Arjun Alessandra Primary Care Provider + [phone] Encounter Details Date Type Department Care Team ([facility] st Contact Info) Description 06/14/2024 Telephone [facility] [address] [place] [address] Amy Hannon, KRISTINA Social History Tobacco Use Types Packs/Day Years [...] encounter Miscellaneous Notes * Telephone Encounter - Amy Hannon RN - 06/14/2024 3:39 PM EST Incoming triage from Piedad Elena from the [facility] to report pt was added to 3:45 sick onsite slot to repeat oxygen testing. Merle reports pt was recently seen at [facility] last week, recently had pneumonia and flu which has been causing worsening sob at home. Pt used to be on home O2 but no longer qualified dueto no supplement documentation in the last three years stating why they need to be on it. [facility] will not cover unless pt desat is below 88%. Vitals taken by KEVIN, pt denies any sob and placed on 2L via nc with O2 showing 99%. Pt would like to repeat oxygen testing to start receiving portable oxygensupplies. PCP informed of pt added to their schedule. Walking test duration of 6 minutes shows at rest pt SPO2 is at 94% without supplemental oxygen. When pt is ambulating without supplemental oxygenpt became hypoxic and desat to 86%. Pt was placed on 2L SPO2 via NC within the next minute while ambulating SPO2 increased to 96%. While resting on supplemental oxygen showed SPO2 95% and when standing decreased to 94%. At this time pt is currently reliant on supplemental oxygen and is reccommendedto be on supplemental oxygen both in home and when they leave their home. For safety precautions a potable compressor is reccommended so pt does not run out of oxygen again. Script was generated and provided to pt. Six Minute Walking Test Resting on Room air: 94% Ambulating on Room Air: 86% Ambulating on 2L supplemental O2 Via NC: 96% Resting on 2L supplemental O2 via NC: 95% Standing on 2L supplemental O2 via NC: 94% Standing on Room Air: 89% documented in this encounter Plan of Treatment Upcoming Encounters Date Type Department Care Team (Late st Contact Info) Description 08/31/2024 10:15 AM EDT Office Visit [facility]INE [address] [place] [address] Alessandra Díaz DO [address] [place] [address] documented as of this encounter Visit Diagnoses Not on filedocumented in this encounter Additional Health Concerns Assessment Noted Time PHQ-9 Depression Total Score: 0 11/12/19 24 12:12 PM EDT documented as of this encounter Care Teams Bale Tie Machine Operator Relationship Specialty Start Date End Date Alessandra Díaz DO [address] [place] [address] PCP - General Family Medicine 04/27/18 documented as of this encounter
--- OUTSIDE RECORDS SUMMARY | 2024-07-06 18:49 | XMS_ITS | Encounter Summary ---
Author Organization [facility] Address [address] [place] [address] [address] [place] [address] Care Team Providers Care Vamp Throater Name Role Phone Alessandra Díaz DO Primary Care Provider [phone] Encounter Details Date Type Department Care Team (Late st Contact Info) Description 04/08/2022 Telephone [facility] MEDICINE [address] [place] [id number] Alessandra Díaz DO [address] [place] [address] Social History Tobacco Use Types Packs/Day Years Used Date Smoking Tobacco: Never Assessed Comments Unknown Sex and Gender Information Value Date Recorded Sex Assigned at Female 02/24/2022 10:15 AM EDT Legal Sex Female 10:15 AM EDT Gender Identity Female 02/24/2022 10:15 AM EDT Sexual Orientation Straight 02/24/2022 10 :15 AM EDT documented as of this encounter Plan of Treatment Upcoming Encounters Date Type Department Care Team (Late Contact Info) Description 08/31/2024 10:15 AM EDT Office Visit [facility] MEDICINE [address] [place] [phone] Alessandra Díaz DO [address] [place] [address] documented as of this encounter Visit Diagnoses Not on filedocumented in this encounter Care Teams Vamp Throater Relationship Specialty Start Date End Date Alessandra Díaz DO [address] [place] [address] PCP - General Family Medicine 04/27/18 documented as of this encounter
--- OUTSIDE RECORDS SUMMARY | 2024-07-06 18:49 | XMS_ITS | Encounter Summary ---
Author Organization [employer] Address [address] [place] [address] [address] [place] [address] Care Team Providers Care Nutrition Specialist Name Role Phone Alessandra Díaz DO Primary Care Provider + [phone] Reason for Referral * Consultation (Routine) - Authorized Specialty Diagnoses / Procedures Referred By Contac t Referred To Contact Pulmonary Disease Diagnoses Cough, unspecified type Wheezing TELLO (dyspnea on exertion) Hypoxia History of COVID-19 Grey Leija MD [address] [place] [phone] Phone: tel: fax: [facility] Pulmonary [address] [place], [place] Phone: tel: fax: Referral ID Status Reason Start Date Expiration Date Visits Requested Visits Authorized [id number] Authorized Specialty Services Required 06/14/2024 06/14/2025 6 6 Reason for Visit * Reason Comments Cough Shortness of Breath Wheezing Encounter Details Date Type Department Care Team (Late st Contact Info) Description 06/14/2024 3:45 PM EST Office Visit [facility] MEDICINE [address] [place] [phone] Grey Leija MD [address] [place] [address] Cough, unspecified type (Primary Dx); Wheezing; TELLO (dyspnea on exertion); Hypoxia; Hypertension, unspecified type; History of COVID-19; Moderate asthma with acute exacerbation, unspecified whether persistent Social History Tobacco Use Types Packs/Day Years Used Date Smoking Tobacco: Never Passive Smoke Exposure: Never Smokeless Tobacco: Never Tobacco Cessation:Counseling Given: Not Answered Alcohol Use Standard Drinks/Week Comments Never 0 [...] AM EDT documented as of this encounter Last Filed Vital Signs Vital Sign Reading Time Taken Comments Blood Pressure 175/88 06/14/2024 3:31 PM EST Pulse 79 06/14/2024 3:31 PM EST Temperature 36.7 ??C (98 ??F) 06/14/2024 3:3 1 PM EST Respiratory Rate 12 06/14/2024 3:31 PM EST Oxygen Saturation 99% 06/14/2024 3:3 1 PM EST On 2 L per nasal cannula at rest Inhaled Oxygen Concentration - - Weight 141 kg (311 lb 12.8 oz) 06/14/2024 3:31 PM EST Height 157.5 cm (5' 2 ) 06/14/2024 3:31 PM EST Body Mass Index 57.03 06/14/2024 3:31 PM EST documented in this encounter Progress Notes * Grey Leija MD - 06/14/2024 3:45 PM EST Subjective Patient ID: Alexa Keller is a 48 y.o. female who presents for Cough, Shortness of Breath, and Wheezing. Patient comes for a sick visit. She is accompanied by her DRILLING ENGINEERING MANAGER. She is complaining of weeks of cough, shortness of breath, wheezing. She has been using albuterol and Arnuity with very little improvement. She has a pulse oximeter at home and she often desaturates to 81% with exertion. She does not have a history of asthma but she describes recurrent cough and wheezing and chronic dyspnea on exertion since she had COVID infection back in 2020. She used to see search engine optimization specialist but was lost to follow-up. Respiratory symptoms seems to be worse since she had flu infection last month. Today her oxygen saturation was 98% at rest on 2 L. She desaturated to 86% on room air while walking for less than 2 minutes. Patient does not have any fevers, no chills, no chest pain. She can speaks in full sentences when she is sitting down but gets very winded with very little walking. Review of Systems Constitutional: Negative for fatigue and fever. Respiratory: Positive for cough, shortness of breath and wheezing. Cardiovascular: Negative for chest pain, palpitations and leg swelling. Visit Vitals BP (!) 175/88 (BP Location: Left arm, Patient Position: Sitting, BP Cuff Size: Large adult) Pulse 79 Temp 98 ??F (36.7 ??C) (Temporal) Resp 12 Ht 5' 2 (1.575 m) Wt 311 lb 12.8 oz (141 kg) SpO2 99% BMI 57.03 kg/m?? Smoking Status Never BSA 2.48 m?? Objective Physical Exam Constitutional: Appearance: Normal appearance. Cardiovascular: Rate and Rhythm: Normal rate and regular rhythm. Heart sounds: No murmur heard. No gallop. Pulmonary: Effort: Pulmonary effort is normal. Breath sounds: Normal breath sounds. No wheezing. Comments: Dyspnea with minimal exertion Musculoskeletal: Right lower leg: No edema. Left lower leg: No edema. Neurological: Mental Status: She is alert. 05/26/24 Range/Units 18:10 WBC 7.2 (4.8-10.8) X10*3/uL RBC 4.00 L (4.20-5.50) X10*6/uL Hgb 12.1 (12.0-16.0) g/dl Hct 36.6 L (37.0-47.0) % MCV 91.5 (80.0-98.0) fL MCH 30.3 (27.0-33.0) pg MCHC 33.1 (31.0-35.0) g/dl RDW 13.0 (11.0-16.0) % Plt Count 210 (160-400) X10*3/uL MPV 11.7 (9.4-12.3) fL Immature Gran % (Auto) 0.4 (0.0-0.4) % Neut % (Auto) 81.1 H (45-73) % Lymph % (Auto) 6.2 L (20-40) % [place] % (Auto) 10.8 (2-11) % Eos % (Auto) 1.1 (0-4) % Baso % (Auto) 0.4 (0-2) % Lymph # (Auto) 0.5 L (1.2-4.9) X10*3/uL [place] # (Auto) 0.8 (0.1-1.2) X10*3/uL Eos # (Auto) 0.1 (0.0-0.4) X10*3/uL Baso # (Auto) 0.0 (0.0-0.2) X10*3/uL Abs Immat Gran (auto) 0.03 (0.00-0.03) X10*3/uL Absolute Neuts (auto) 5.9 (2.0-8.3) x10*3/uL Absolute Nucleated RBC 0.000 (0.0-0.012) X10*3/uL Nucleated RBC % (auto) 0.0 (0.0-0.2) /100WBC PT 13.9 H (10.9-12.4) SEC INR 1.2 H (0.9-1.1) Sodium 136 (135-145) mmol/L Potassium 4.2 (3.3-5.1) mmol/L Chloride 100 (96-108) mmol/L Carbon Dioxide 29 (22-29) mmol/L Anion Gap 11 L (12-20) BUN 10 (9-16) mg/dL Creatinine 0.79 (0.5-1.4) mg/dL Estim Creat Clear Calc 119.9 Estimated GFR > 60 Random Glucose 156 H (60-115) mg/dL Calcium 9.7 (8.4-10.2) mg/dL Total Bilirubin 0.4 (0.0-1.0) mg/dL AST 63 H (5-31) U/L ALT 76 H (0-31) U/L Alkaline Phosphatase 59 (39-117) U/L Troponin I High Sens 6.2 (<3.5-17.0) ng/L Total Protein 8.0 (6.5-8.0) g/dL Albumin 4.2 (3.5-5.0) g/dL Lipase 14 (8-78) U/L Influenza Type A (PCR) POSITIVE A (Negative) Influenza Type B (PCR) NEGATIVE (Negative) RSV RNA Qual (PCR) NEGATIVE (Negative) SARS-CoV-2 RNA (RT-PCR) NEGATIVE (Negative) [place] [id number] XRay Report Signed Patient: Alexa Kleler MR#: [id number] 6 : 1975 Acct:[id number] Age/Sex: 48 / F ADM Date: 05/26/24 Loc: .ED Attending Dr: Ordering Physician: Dimitri Hernandez Date of Service: 05/26/24 Procedure(s): XR chest 2V Accession Number(s): [id number] cc: [facility]; Dimitri Hernandez CLINICAL HISTORY: pain 2 view chest x-ray Comparison: CR/SR - XR CHEST 2V - 12/14/23 12:54 EDT Findings: Mild diffuse reticulonodular pulmonary opacity. Normal size heart. No acute fracture. IMPRESSION: Mild atypical pneumonia. This document has been electronically signed by: Elva Esteban MD on 05/26/2024 18:28:47 Dictated By: Elva Esteban MD Signed By: <Electronically signed by Elva Esteban MD in OV> 05/26/241829 DD/ 27 TD/TT: 05/26/241827 Former Hand: Assessment/Plan Diagnoses and all orders for this visit: Cough, unspecified type Comments: Patient presents with months of symptoms of bronchial hyperreactivity exacerbated after recent flu infection. I recommended to continue albuterol and Arnuity daily. I prescribed another short course of prednisone to the patient. I will prescribe her portable oxygen at 2 L per nasal cannula since she desaturates with activity to 86%. I will refer her again to pulmonary. I asked her to go back to ER if not better by tonight. I started the patient on amlodipine for hypertension. I will forward herchart to PCP. I will have nurses call to see how she is doing tomorrow. Orders: - Referral to Pulmonology; Future Wheezing - Referral to Pulmonology; Future TELLO (dyspnea on exertion) - Referral to Pulmonology; Future Hypoxia - Referral to Pulmonology; Future Hypertension, unspecified type History of COVID-19 - Referral to Pulmonology; Future Moderate asthma with acute exacerbation, unspecified whether persistent Other orders - predniSONE (Deltasone) 20 MG tablet; Take 2 tablets (40 mg) by mouth Once per day for 5 days. - amLODIPine (Norvasc) 2.5 MG tablet; Take 1 tablet (2.5 mg) by mouth Once per day. documented in this encounter Plan of Treatment Upcoming Encounters Date Type Department Care Team (Late st Contact Info) Description 08/31/2024 10:15 AM EDT Office Visit [facility] MEDICINE [address] [place] [address] Alessandra Díaz, DO [address] [place] [address] Scheduled Referrals Name Type Priority Associated Diagnoses Orde r Schedule Referral to Pulmonology Outpatient Referral Routine Cough, unspecified type Wheezing TELLO (dyspnea on exertion) Hypoxia History of COVID-19 Expected: 06/14/2024 (Approximate), Expires: 06/14/2025 documented as of this encounter Visit Diagnoses Diagnosis Cough, unspecified type- Primary Wheezing TELLO (dyspnea on exertion) Other dyspnea and respiratory abnormality Hypoxia Hypoxemia Hypertension, unspecified type History of COVID-19 Moderate asthma with acute exacerbation, unspecified whether persistent documented in this encounter Additional Health Concerns Assessment Noted Time PHQ-9 Depression Total Score: 0 11/12/19 24 12:12 PM EDT documented as of this encounter Care Teams Nutrition Specialist Relationship Specialty Start Date End Date Alessandra Díaz DO [address] [place] [id number] PCP - General Family Medicine 04/27/18 documented as of this encounter
--- OUTSIDE RECORDS SUMMARY | 2024-07-06 18:49 | XMS_ITS | Clinical Summary ---
Author Organization [employer] Address [address] [place] [address] 7[address] [place] [address] Care Team Providers Care Demonstrator Knitting Name Role Phone CarleneAlessandra jeronimo Primary Care Provider + [phone] Allergies No known active allergies Medications * This document contains information received from the source organization and may not represent a complete record from that organization. acetaminophen (Tylenol 8 Hour) 650 MG ER tablet TAKE 1 TABLET BY MOUTH EVERY 6 HOURS NEEDED FOR PAIN OR FEVER 02/29/20 22 Active Diclofenac Sodium 1 % gel APPLY 2 GRAMS TO AFFECTED AREA(S) TWICE DAILY PRN PAIN 02/29/20 22 Active docusate sodium (Colace) 100 MG capsule TAKE 1 CAPSULE BY MOUTH TWICE DAILY 02/07/20 22 Active methadone (Dolophine) 10 MG/ML solution Take 118 mg by mouth Once per day. Active baclofen (Lioresal) 10 MG tabletIndicati ons:Muscle spasm TAKE 1 TABLET BY MOUTH THREE TIMES DAILY NEEDED FOR MUSCLE SPASMS OR PAIN 60 tablet 2 06/06/19 23 Active cetirizine (ZyrTEC) 10 MG tablet Take 1 tablet (10 mg) by mouth Once per day. 30 tablet 11 10/23/19 24 025 Active fluticasone (Flonase) 50 MCG/ACT nasal spray Administer 2 sprays into each nostril Once per day. Shake gently. Before first use, prime pump. After use, clean tip and replace cap. 16 g 11 10/23/19 24 025 Active Ketotifen Fumarate (Alaway) 0.035 % solution Administer 1 drop into affected eye(s) if needed in the morning and at bedtime (eye itching). 10 mL 3 10/23/19 24 Active tolterodine LA (Detrol LA) 4 MG 24 hr capsule Take 1 capsule (4 mg) by mouth Once per day. Do not crush, chew, or split. 90 capsule 3 11/12/19 24 025 Active Blood Pressure kit 1 each 1 (one) time per week. 1 kit 12/14/19 24 Active fluticasone furoate (Arnuity Ellipta) 200 MCG/ACT inhaler Inhale 1 puff Once per day. Rinse mouth with water after use to reduce aftertaste and incidence of candidiasis. Do not swallow. 1 each 11 12/14/19 24 025 Active FeroSul 325 (65 Fe) MG tablet TAKE 1 TABLET BY MOUTH EVERY DAY 90 tablet 3 02/17/20 24 Active Ascorbic Acid (vitamin C) 250 MG tablet TAKE 1 TABLET BY MOUTH ONCE DAILY WITH IRON (FERROUS SULFATE) 90 tablet 3 02/17/20 24 Active SUMAtriptan (Imitrex) 25 MG tablet TAKE 1 TABLET BY MOUTH AT ONSET OF MIGRAINE. MAY REPEAT ONCE AFTER 2 HOURS IF NEEDED DO NOT EXCEED 2 DOSES IN 24 HOURS 9 tablet 3 03/30/20 24 Active D3 Super Strength 50 MCG (2000 UT) capsule TAKE 1 CAPSULE BY MOUTH EVERY DAY 90 capsule 1 05/06/19 25 Active FLUoxetine (PROzac) 20 MG capsule TAKE 1 CAPSULE BY MOUTH EVERY DAY 30 capsule 2 06/03/19 25 Active triamcinolone (Kenalog) 0.1 % cream Apply topically 2 times daily for 28 days. Mix with cerave and apply bid 80 g 2 06/10/19 25 025 Active amLODIPine (Norvasc) 2.5 MG tablet Take 1 tablet (2.5 mg) by mouth Once per day. 30 tablet 11 06/14/19 25 026 Active hydrOXYzine pamoate (Vistaril) 25 MG capsule TAKE 1 CAPSULE BY MOUTH EVERY SIX HOURS NEEDED FOR ANXIETY 30 capsule 2 06/24/19 25 Active Ventolin HFA 108 (90 Base) MCG/ACT inhaler INHALE 2 PUFFS EVERY 6 HOURS NEEDED FOR COUGH, WHEEZING, OR SHORTNESS OF BREATH 18 g 1 03/06/20 25 Active Ventolin HFA 108 (90 Base) MCG/ACT inhaler INHALE 2 PUFFS BY MOUTH EVERY 6 HOURS NEEDED FOR COUGH, WHEEZING, OR SHORTNESS OF BREATH 18 g 1 05/02/19 25 025 Discontinued hydrOXYzine pamoate (Vistaril) 25 MG capsule TAKE 1 CAPSULE BY MOUTH EVERY 6 HOURS NEEDED FOR ANXIETY 30 capsule 2 06/01/19 25 025 Discontinued predniSONE (Deltasone) 20 MG tablet Take 2 tablets (40 mg) by mouth Once per day for 5 days. 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 I explained that PAP smear was done to ro cervical Ca/preCa conditions mainly and that I may not be able to tell her today the exact dx or stop her bleeding but that I can order the US and do some of the tests they will do at the [facility] office. She opted to rs appt for [facility] and have all tests done at the time of appt and walked out of the exam room. I will schedule pelvic US. Patient left and didn't want to have vaginal self swab. I called [facility] and she already had rs her appt for 09/25. Patient to continue 90d cycle OCP instead, switch to ortho evra patch(rx Last week) this month if bleeding doesn't stop at the time of last pill Opioid use disorder 09/10/2017 Allergic rhinitis 07/18/2015 Anemia 07/18/2015 Anxiety 07/18/2015 Chronic pain of both knees 07/18/2015 Chronic migraine 07/18/2015 BMI 50.0-59.9, adult 07/18/2015 Fatty liver 07/18/2015 Encounters Date Type Department Care Team Description 06/29/[address] [place] [address] Alessandra Díaz, 06/23/[address] [place] [address] Alessandra Díaz, 06/17/[address] [place] [address] Alessandra Díaz, 06/15/[address] [address] Alessandra Díaz DO Call Back Request 06/15/[address] [address] Alessandra Díaz, 06/14/2024 3:45 PM EST Office Visit [address] [address] Grey Leija MD Cough, unspecified type (Primary Dx); Wheezing; TELLO (dyspnea on exertion); Hypoxia; Hypertension, unspecified type; History of COVID-19; Moderate asthma with acute exacerbation, unspecified whether persistent 06/14/[address] [address] Amy Hannon RN 06/14/2024 Telephone [facility] [address] [place] [phone] Alessandra Díaz DO Nurse Triage (Difficulty breathing, maintaining O2 levels above 90%) 06/10/2024 3:20 PM EST Office Visit [facility] [address] [place] [phone] Usha Delaney FNP Atopic dermatitis, unspecified type (Primary Dx); Hypoxia 06/10/[address] [address] Ayla Grant, RN Durable Medical Equipment 06/10/[address] [address] Alessandra Díaz DO No Show 06/06/[address] [address] Alessandra Díaz, Referral 06/03/2024 Refill [facility] [place] [address] Alessandra Díaz, 06/01/2024 Telephone [facility] [address] [place] [address] Masood Henny, [place] chart prep 05/31/2024 Telephone [facility] [address] [place] [phone] Alessandra Díaz DO ER Follow-up 05/30/2024 Patient Outreach [facility] [address] [place] [address] Alessandra Díaz DO Pre-visit Planning (SDOH screening negative and tobacco screening negative) 05/30/2024 Refill [facility] [address] [place], [place] [address]mar[place] [address] Alessandra Díaz, 05/26/2024 Orders Only GENERIC EXTERNAL DATA DEPARTMENT Provider, Generic External Data 05/05/2024 Refill [facility] [address] [place] [address] Alessandra Díaz, 04/30/2024 Refill [facility] [address] [place] [address] Alessandra Díaz, 04/29/[address] [address] Alessandra Díaz DO Appointment Request 04/29/2024 Telephone [facility] [address] [place] [phone] Alessandra Díaz, 04/29/2024 Refill [facility] [address] [place] [phone] Alessandra Díaz, 04/19/2024 Outside Procedure [facility] [address] [place] [address] [place] [address] Sj Coellon, OD Presbyopia (Primary Dx) 04/18/2024 10:00 AM EST Office Visit [facility] [address] [place] [address] [place] [address] Sj Coellon, OD Myopia of both eyes (Primary Dx) 04/18/2024 Travel 04/12/2024 Telephone [facility] [address] [place] [address] Alessandra Díaz DO Nurse Triage 04/12/2024 Telephone [facility] [address] [place], [place] [phone] Alessandra Díaz DO 04/11/2024 Refill [facility] [address] [place], [place] [phone] Alessandra Díaz DO from Last 3 Months Immunizations Name Administration Dates Next Due Hep A, Adult 12/03/2005 Hep B, adult 11/24/2011, 2,06/10/2011,2005,12/03/2005 Influenza injectable quadriv alent IIV4 with preservative 05/09/2022(Deferred: No longer needed),02/20/2016 Influenza injectable quadriv alent preservative free 02/06/2022,03/15/2021,03/27/2020,2016,01/17/2015,07/26/2014 Influenza, Split (incl. debbie fied surface antigen) 02/24/2013,03/29/2012 Moderna Covid-19 Vaccine 6+ Bivalent 05/06/2022 Pfizer Covid-19 Vaccine 12+ 10/05/2023 TD (adult), 2 Lf tetanus tox oid, preservative free, adsorbed 02/06/2022,05/19/2005 Tdap 06/10/2011 Social History Tobacco Use Types Packs/Day Years [...] Orientation Straight 02/24/2022 10 :15 AM EDT Last Filed Vital Signs Vital Sign Reading [...] Mass Index 57.03 06/14/2024 3:31 PM EST Plan of Treatment Upcoming Encounters Date Type Department Care Team (Late st Contact Info) Description 08/31/2024 10:15 AM EDT Office Visit [facility] [address] [place] [phone] Alessandra Díaz DO [address] [place] [address] Health Maintenance Due Date Last Done Comments CT Colonography 1975 Colonoscopy 1975 Colorectal Cancer Screening 1975 FIT DNA/Cologuard 1975 FIT 1975 FOBT 1975 Sigmoidoscopy 1975 Alcohol/Substance Use Screening 1987 Family Planning (PISQ) 08/01/1990 Pneumococcal Vaccine: Pediatrics (0 to 5 Years) and At-Risk Patients (6 to 49) Years) (1 of 2 - PCV) 08/01/1994 Hepatitis A Vaccines (2 of 2 - Risk 2-dose series) 06/05/2006 12/03/2005 Mammogram 09/19/2019 09/18/2017 COVID-19 Vaccine ( season) 2023 10/05/2023, 05/06/2022, 01/01/2021, Additional history exists Influenza Vaccine (#1) 2023 , 03/15/2021, 03/27/2020, Additional history exists Depression Screening 11/11/2024 11/12/2023, 11/12/19 24 SDOH Screening 05/30/2025 05/30/2024 Tobacco Screening 06/14/2025 06/14/2024 Zoster Vaccines (1 of 2) 08/01/2025 Pap Smear 09/12/2025 09/12/2022, 09/12/2022 Lipid Panel 05/09/2027 05/09/2022, 03/29/2020 Cervical Cancer Screening 09/13/2027 HPV/Cotest 09/13/2027 09/12/2022 DTaP/Tdap/Td Vaccines (3 - Td or Tdap) 02/07/2032 02/06/2022, 06/10/2011, 05/19/2005 RSV Patients and Patients Aged 60 years or older (1 - 1-dose 75+ series) 08/01/2050 Hepatitis B Vaccines Completed 11/24/2011, 08/12/2011, 06/10/2011, Additional history exists HIV Screening Completed 05/09/2022, 03/29/2020 Hepatitis C Screening Completed 05/09/2022, 020 HIB Vaccines Aged Out No longer eligi ble based on patient's age to complete this topic HPV Vaccines Aged Out No longer eligi ble based on patient's age to complete this topic IPV Vaccines Aged Out No longer eligi ble based on patient's age to complete this topic Meningococcal Vaccine Aged Out No joao carina eligible based on patient's age to complete this topic RSV under 20 months Aged Out No longe r eligible based on patient's age to complete this topic Rotavirus Vaccines Aged Out No longer eligible based on patient's age to complete this topic Procedures Procedure Name Priority Date/Time Associated Diagnosis Comments XR CHEST 2 VIEWS Routine 05/26/2024 6:28 PM EST HIGH SENSITIVITY TROPONIN I Routine 05/26/2024 6:10 PM EST LIPASE Routine 05/26/2024 6:10 PM EST COMPREHENSIVE METABOLIC PANEL Routine 05/26/2024 6:10 PM EST PROTHROMBIN TIME-INR Routine 05/26/2024 6:10 PM EST CBC WITH AUTO DIFFERENTIAL Routine 05/26/2024 6:10 PM EST SARS COV2/INFLUENZA A/B AND RSV RNA QL NAAT Routine 05/26/2024 6:10 PM EST THINPREP PAP, HPV MRNA E6/E7 RFX HPV 16,18/45, CHLAMYDIA/N.GONORRHOEA E Routine 09/12/2022 12:00 AM EDT HM PAP/HPV Routine 09/12/2022 HEPATITIS C AB W/REFL TO HCV RNA, QN, PCR Routine 05/09/2022 10:20 AM EST HIV 1/2 ANTIGEN/ANTIBODY, FOURTH GENERATION W/RFL Routine 05/09/2022 10:20 AM EST LIPID PANEL, STANDARD Routine 05/09/2022 10:20 AM EST BI MAMMOGRAM SCREENING BILATERAL Routine 09/18/2017 7:09 AM EDT from Last 3 Months or Most Recently Relevant to Health Maintenance Results * XR Chest 2 Views (05/26/2024 6:28 PM EST) Anatomical Region Laterality Modality Chest Radiographic Lay ging 05/26/2024 6:28 PM EST Narrative 05/26/2024 6:30 PM EST ? [facility] ?[address] ?[place] [address] ?XRay Report ? Signed ? Patient: Alexa Keller ?MR#: [id number] ?? 0 ? : 1975 ?Acct:[id number] ? Age/Sex: 48 / F ?ADM Date: 05/26/24 ? Loc: HO.ED ? Attending Dr: ? Ordering Physician: Dimitri Hernandez ?? Date of Service: 05/26/24 ?? Procedure(s): XR chest 2V ?? Accession Number(s): [id number] ? cc: [facility]; Dimitri Hernandez ? CLINICAL HISTORY: pain ? 2 view chest x-ray ? Comparison: CR/SR - XR CHEST 2V - 12/14/23 12:54 EDT ? Findings: ?? Mild diffuse reticulonodular pulmonary opacity. ?? Normal size heart. ?? No acute fracture. ? IMPRESSION: ?? Mild atypical pneumonia. ? This document has been electronically signed by: Elva Esteban MD on ?? 05/26/2024 18:28:47 ? Dictated By: ?Elva Esteban MD ? Signed By: ?<Electronically signed by Elva Esteban MD in OV> ? 05/26/24 1830 ? DD/ 1828 ? TD/TT: 05/26/24 1828 ? Destination Sign Repairer: ? Procedure Note Sita Sawyer - 06/22/[address] [address] XRay Report Signed Patient: Krishna,SandItalo#: [id number] 0 : 1975Acct:[id number] Age/Sex: 48 / FADM Date: 05/26/24 Loc: HO.ED Attending Dr: Ordering Physician: Dimitri Hernandez Date of Service: 05/26/24 Procedure(s): XR chest 2V Accession Number(s): [id number] cc: [facility]; Dimitri Hernandez CLINICAL HISTORY: pain 2 view chest x-ray Comparison: CR/SR - XR CHEST 2V - 12/14/23 12:54 EDT Findings: Mild diffuse reticulonodular pulmonary opacity. Normal size heart. No acute fracture. IMPRESSION: Mild atypical pneumonia. This document has been electronically signed by: Elva Esteban MD on 05/26/2024 18:28:47 Dictated By: Elva Esteban MD Signed By: <Electronically signed by Elva Esteban MD in OV> 05/26/24 1830 DD/ 27 TD/TT: 05/26/241827 Destination Sign Repairer: [facility] External Provider IMG XR PROCEDURES Edited Result - Final * High Sensitivity Troponin I (05/26/2024 6:10 PM EST) [facility] TROPONIN I HIGH SENSITIVITY 6.2 <3.5 - 17.0 ng/L [facility] Comment:The [place] high sens itivity Troponin-I results should beused in conjunction with other diagnostic information suchas ECG, clinical observations and information, and patientsymptoms to aid in the diagnosis of [place]. 05/26/2024 6:10 PM EST 05/26/2024 6:21 PM EST Generic External Data Provider LAB BLOOD ORDERAB LES Final Result [facility] [address] [place] [phone] * (ABNORMAL) SARS-CoV-2 RNA, Influenza A/B, and RSV RNA, Ql NAAT (05/26/2024 6:10 PM EST) Influenza A PCR POSITIVE(A) Negative [facility] Influenza B PCR NEGATIVE Negative [facility] Resp Syncy Virus RNA Qual PCR NEGATIVE Negative [facility] SARS COV2 PCR NEGATIVE Negative [facility] Comment:All test results mus t be correlated with clinical findings.Negative results do not preclude SARS-CoV2, influenza Avirus, influenza B virus and/or RSV infectionand should not be used as the sole basis for treatment orother patient management decisions. Negative results must becombined with clinical observations, patient history, andepidemiological information.This test has not been evaluated for monitoring treatment ofinfection.This test has been authorized by the FDA under an EmergencyUse Authorization (EUA) for use by authorized laboratories.Testing performed on the PlusFourSixXpert utilizingreal-time RT-PCR.All SARS CoV2 and positive influenza A/B results arereported to [facility]. 05/26/2024 6:10 PM EST 05/26/2024 6:21 PM EST us Generic External Data Provider LAB MICROBIOLOGY - GENERAL ORDERABLES Final Result [facility] [address] [place] [phone] * (ABNORMAL) CBC auto differential (05/26/2024 6:10 PM EST) White Blood Count 7.2 4.8 - 10.8 X10*3/uL [facility] Red Blood Count 4.00(L) 4.20 - 5.50 X10*6/uL [facility] Hemoglobin 12.1 12.0 - 16.0 g/dl [facility] Hematocrit 36.6(L) 37.0 - 47.0 % [facility] Mean Corpuscular Volume 91.5 80.0 - 98.0 fL [facility] Mean Corpuscular Hemoglobin 30.3 27.0 - 33.0 pg [facility] Mean Corpuscular HGB Conc 33.1 31.0 - 35.0 g/dl [facility] Red Cell Distribution Width 13.0 11.0 - 16.0 % [facility] Platelet Count 210 160 - 400 X10*3/uL [facility] Mean Platelet Volume 11.7 9.4 - 12.3 fL [facility] Neutrophils Percent Auto 81.1(H) 45 - 73 % [facility] Imm Gran Pct Auto 0.4 0.0 - 0.4 % [facility] Lymphocytes Percent Auto 6.2(L) 20 - 40 % [facility] Monocytes Percent Auto 10.8 2 - 11 % [facility] Eosinophils Percent Auto 1.1 0 - 4 % [facility] Basophils Percent Auto 0.4 0 - 2 % [facility] NRBC Pct Auto 0.0 0.0 - 0.2 /100WBC [facility] Neutrophils Absolute Auto 5.9 2.0 - 8.3 x10*3/uL [facility] Imm Gran Abs Auto 0.03 0.00 - 0.03 X10*3/uL [facility] Lymphocytes Absolute Auto 0.5(L) 1.2 - 4.9 X10*3/uL [facility] Monocytes Absolute Auto 0.8 0.1 - 1.2 X10*3/uL [facility] Eosinophils Absolute Auto 0.1 0.0 - 0.4 X10*3/uL [facility] Basophils Absolute Auto 0.0 0.0 - 0.2 X10*3/uL [facility] NRBC Abs Auto 0.000 0.0 - 0.012 X10*3/uL [facility] 05/26/2024 6:10 PM EST 05/26/2024 6:21 PM EST us Generic External Data Provider LAB BLOOD ORDERAB LES Final Result [facility] [address] [place] [phone] [phone] * (ABNORMAL) Prothrombin Time-INR (05/26/2024 6:10 PM EST) Prothrombin Time 13.9(H) 10.9 - 12.4 SEC [facility] INTERNATIONAL NORM RATIO 1.2(H) 0.9 - 1.1 [facility] Comment:INTERNATIONAL NORMAL IZED RATIO (INR) REFERENCE RANGES Reference RangeFor patients not on anticoagulant therapy: 0.9 - 1.1INR ranges for oral anticoagulanttherapy:For prevention and treatment of venous thrombosis and pulmonary embolism: 2.0 - 3.0For acute myocardial infarction with aspirin therapy: 2.0 - 3.0For acute myocardial infarction without aspirin therapy: 3.0 - 4.0For patients with mechanical prosthetic heart valves: 2.5 - 3.5 05/26/2024 6:10 PM EST 05/26/2024 6:21 PM EST Generic External Data Provider LAB BLOOD ORDERAB LES Final Result Performing Organization Address [facility] Co de Phone Number [facility] [address] [place] [phone] * Lipase (05/26/2024 6:10 PM EST) Lipase 14 8 - 78 U/L [facility] 05/26/2024 6:10 PM EST 05/26/2024 6:21 PM EST [employer] External Data Provider LAB BLOOD ORDERAB LES Final Result Performing Organization Address [facility] de Phone Number [facility] [address] [place] [phone] * (ABNORMAL) Comprehensive Metabolic Panel (05/26/2024 6:10 PM EST) Sodium 136 135 - 145 mmol/L [facility] Potassium 4.2 3.3 - 5.1 mmol/L [facility] Chloride 100 96 - 108 mmol/L [facility] Carbon Dioxide 29 22 - 29 mmol/L [facility] Anion Gap 11(L) 12 - 20 [facility] Urea Nitrogen (BUN) 10 9 - 16 mg/dL [facility] Creatinine, Serum 0.79 0.5 - 1.4 mg/dL [facility] Creatinine Clr Calc Pharmacy 119.9 [facility] Comment:Provided height and weight: 157.48 cm,142.9 kg.eGFR (calculated from the MDRD study equation) and eCrCl(calculated from the Cockcroft-Gault equation) are based ondifferent parameters and may not yield comparable results.If eCrCl result is absurd, please check patient'sheight/weight. Estimated Glomerular Filt Rate >60 [facility] Comment:Chronic Kidney Disea se: Estimated GFR < 60 mL/min/1.60x9Qlsyet Kidney Disease: Estimated GFR < 15 mL/min/1.73m2 Glucose 156(H) 60 - 115 mg/dL [facility] Calcium 9.7 8.4 - 10.2 mg/dL [facility] Bilirubin, Total 0.4 0.0 - 1.0 mg/dL [facility] Aspartate Amino Transferase 63(H) 5 - 31 U/L [facility] Alanine Aminotransferase 76(H) 0 - 31 U/L [facility] Total Protein 8.0 6.5 - 8.0 g/dL [facility] Albumin Level 4.2 3.5 - 5.0 g/dL [facility] Alkaline Phosphatase 59 39 - 117 U/L [facility] 05/26/2024 6:10 PM EST 05/26/2024 6:21 PM EST us Generic External Data Provider LAB BLOOD ORDERAB LES Final Result [facility] [address] [place] [address] [phone] * Thinprep PAP, HPV mRNA E6/E7 RFX HPV 16,18/45, Chlamydia/N. Gonorrhoeae (09/12/2022 12:00 AM EDT) Clinical Information: SCREENING [email or web address] [place] [employer] LMP: 08/09/22 [email or web address] [place] [employer] Prev. PAP: NONE GIVEN [employer] Prev. BX: NONE GIVEN [email or web address] [place] [employer] [facility] SOURCE: None given [email or web address] [place] [employer] Statement Of Adequacy: [email or web address] [place] [employer] Comment: Satisfactory for evaluation. Endocervical/transformation zone component present. Interpretation/Re sult: Negative for intraepithelial lesion or malignancy. [email or web address] [place] [employer] Hat Checker: Anuj harrison [employer] [place] [employer] Comment: RMM, CT(ASCP) CT screening location: [address] ??[phone] (Always Message) Que st [employer] [place] [employer] Comment: EXPLANATORY NOTE: The Pap is a screening test for cervical cancer. It is not a diagnostic test and is subject to false negative and false positive results. It is most reliable when a satisfactory sample, regularly obtained, is submitted with relevant clinical findings and history, and when the Pap result is evaluated along with historic and current clinical information. HPV nRNA E6/E7 Not Detected Not Detected Expa Comment: Methodology: Chief Design Branch-Mediated Amplification This assay detects E6/E7 viral messenger RNA (mRNA) from 14 high-risk HPV types (16,18,31,33,35,39,45,51,52,56,58,59,66,68). Cervical sources are required for HPV testing. If a vaginal source from a patient who has had a total hysterectomy with removal of cervix was submitted, please contact the testing laboratory for alternative testing options. For additional information, please refer to http://Signiant/faq/FRF737u7 (This link if provided for information/ educational purposes only.) Chlamydia trachomatis RNA, TMA, Urogenital NOT DETECTED NOT DETECTED [employer] Neisseria gonorrhoeae RNA, TMA, Urogenital NOT DETECTED NOT DETECTED Expa (Always Message) Que [employer] Comment: The analytical performance characteristics of this assay, when used to test SurePath(TM) specimens have been determined by [email or web address]. The modifications have not been cleared or approved by the FDA. This assay has been validated pursuant to the CLIA regulations and is used for clinical purposes. For additional information, please refer to https://[email or web address].OrderUp/faq/KMP186 (This link is being provided for information/ educational purposes only.) 09/12/2022 09/15/2022 10: 04 AM EDT Narrative [facility] - 09/17/2022 4:23 PM EDT FASTING: UNKNOWN Result [facility] Alessandra Díaz DO LAB PATHOLOGY ORDERABLES Fin al Result Performing Organization Address [facility] Co de Phone Number [address], [facility] [place] [phone] [email or web address] [place] [employer] [facility] [address] [place] [phone] * Hm Pap Smear (09/12/2022) HM Pap smear NIL HPV- Result [facility] Historical Provider MD HEALTH MAINTENANCE Final Result * Hepatitis C Antibody with Reflex to HCV, RNA, Quantitative, Real-Time PCR (05/09/2022 10:20 AM EST) Hepatitis C Antibody NON-REACT JT NON-REACT JT [email or web address] [place] [employer] [facility] Index 0.07 <1.00 [email or web address] [place] [employer] [facility] Comment: HCV antibody was non-reactive. There is no laboratory evidence of HCV infection. In most cases, no further action is required. However, if recent HCV exposure is suspected, a test for HCV RNA (test code 20338) is suggested. For additional information please refer to http://education.[address].EchoSign/faq/RAR07c7 (This link is being provided for informational/ educational purposes only.) 05/09/2022 10:2 0 AM EST 05/09/2022 10:21 AM EST Narrative [facility] - 05/12/2022 2:09 PM EST FASTING:NO FASTING: NO Alessandra Díaz DO LAB BLOOD ORDERABLES Final R esult Performing Organization Address City/[facility]/ZIP Co de Phone Number [address], [facility] [place] [address] [email or web address] [place] [employer] [facility] [address] [place] [address], (Nl2) [place] [address] * HIV-1/2 Antigen and Antibodies, Fourth Generation, with Reflexes (05/09/2022 10:20 AM EST) Pathologist [facility] HIV Antigen/Antibody, 4th Generation NON-REAC TIVE NON-REAC TIVE [email or web address] [place] [employer] Comment: HIV-1 antigen and HIV-1/HIV-2 antibodies were not detected. There is no laboratory evidence of HIV infection. PLEASE NOTE: This information has been disclosed to you from records whose confidentiality may be protected by state law. ??If your state requires such protection, then the state law prohibits you from making any further disclosure of the information without the specific written consent of the person to whom it pertains, or as otherwise permitted by law. A general authorization for the release of medical or other information is NOT sufficient for this purpose. ?? For additional information please refer to http://education.OrderUp/faq/ZTM064 (This link is being provided for informational/ educational purposes only.) The performance of this assay has not been clinically validated in patients less than 2 years old. 05/09/2022 10:2 0 AM EST 05/09/2022 10:21 AM EST Narrative [facility] - 05/12/2022 2:09 PM EST FASTING:NO FASTING: NO us Alessandra Díaz DO LAB BLOOD ORDERABLES Final R esult [facility] [address], [place] [address] [email or web address] [place] [employer] [address], (Nl2) [place] [address] * (ABNORMAL) Lipid Panel, Standard (05/09/2022 10:20 AM EST) [facility] Cholesterol, Total 97 <200 mg/dL [email or web address] [place] [employer] HDL Cholesterol 41(L) > OR = 50 mg/dL [email or web address] [place] [employer] Triglycerides 48 <150 mg/dL [email or web address] [place] [employer] LDL Cholesterol 42 mg/dL (calc) [email or web address] [place] [employer] Comment: Reference range: <100 Desirable range <100 mg/dL for primary prevention; ?? <70 mg/dL for patients with CHD or diabetic patients with > or = 2 CHD risk factors. LDL-C is now calculated using the Kevin calculation, which is a validated novel method providing better accuracy than the Friedewald equation in the estimation of LDL-C. Albert ZELAYA et al. EVON. 2013;310(19): 5660-9089 (http://education.[employer]/faq/ONC831) Chol/HDLC Ratio 2.4 <5.0 (calc) Expa Non-HDL Cholesterol 56 <130 mg/dL (calc) Expa Comment: For patients with diabetes plus 1 major ASCVD risk factor, treating to a non-HDL-C goal of <100 mg/dL (LDL-C of <70 mg/dL) is considered a therapeutic option. 05/09/2022 10:2 0 AM EST 05/09/2022 10:21 AM EST Narrative [facility] - 05/12/2022 2:09 PM EST FASTING:NO FASTING: NO Alessandra Díaz DO LAB BLOOD ORDERABLES Final R esult [facility] [address], [place] [address] Expa 200 [facility], (Nl2) [place] [address] * DIGITAL BILATERAL SCREEN 1 (09/18/2017 7:09 AM EDT) Anatomical Region Laterality Modality Breast Bilateral Mammography 09/18/2017 7:09 AM EDT Narrative 09/18/2017 7:11 AM EDT Refer to the Notes tab for result details [facility] Procedure: DIGITAL BILATERAL SCREEN 1 Procedure Note Provider, MD Margarette - 07/19/2022 Refer to the Notes tab for result details [facility] Procedure: DIGITAL BILATERAL SCREEN 1 us Alessandra Díaz DO IMG BI PROCEDURES Final Resu lt from Last 3 Months or Most Recently Relevant to Health Maintenance Insurance Care Teams Demonstrator Knitting Relationship Specialty Start Date End Date Alessandra Díaz DO [address] [place] [address] PCP - General Family Medicine 04/27/18
--- OUTSIDE RECORDS SUMMARY | 2024-07-06 18:49 | XMS_ITS | Encounter Summary ---
Author Organization [employer] Address [address] [place] [address] 7 [place] [address] Care Team Providers Care Transportation Broker Name Role Phone Marguerite Díazfer Primary Care Provider + [phone] Reason for Referral * Hospital - Outpatient (Routine) - Authorized Specialty Diagnoses / Procedures Referred By Contac t Referred To Contact Respiratory Therapy Diagnoses Hypoxia Procedures Nasal Cannula- Oxygen Therapy Usha Delaney FNP [address] [place] [address] Phone: tel: fax: Referral ID Status Reason Start Date Expiration Date V isits Requested Visits Authorized [id number] Authorized 06/10/2024 06/10/2025 1 1 Reason for Visit * Reason Comments Dry skin Encounter Details Date Type Department Care Team (Late st Contact Info) Description 06/10/2024 3:20 PM EST Office Visit [facility] [address] [place] [address] Usha Delaney FNP [address] [place], [place] [phone] Atopic dermatitis, unspecified type (Primary Dx); Hypoxia Social History Tobacco Use Types Packs/Day Years [...] Sign Reading Time Taken Comments Blood Pressure 162/90 06/10/2024 3:30 PM EST Pulse 92 06/10/2024 3:30 PM EST Temperature 36.7 ??C (98 ??F) 06/10/2024 3:30 PM EST Respiratory Rate 21 06/10/2024 3:30 PM EST Oxygen Saturation 94% 06/10/2024 3:30 PM EST Inhaled Oxygen Concentration - - Weight 142 kg (313 lb 3.2 oz) 06/10/2024 3:30 PM EST Height 157.5 cm (5' 2 ) 06/10/2024 3:30 PM EST Body Mass Index 57.29 06/10/2024 3:30 PM EST documented in this encounter Progress Notes * Ayla Grant RN - 06/10/2024 3:20 PM EST RN Consult Note Pt requesting portable oxygen concentrator Is currently reliant on supplemental oxygen. Has been on supplemental oxygen for ~3 years. Has a concentrator for home use and oxygen tanks for portable use but tanks have run out. Would like to receive a concentrator so that she doesn't need to worry about getting tank refills. 5 minute Oxygen Walk Test completed Activity Oxygen Source SPO2 Sitting 2L supplemental O2 via nasal cannula 99% Sitting Room air 96% Walking 2L supplemental O2 via nasal cannula 96% Walking Room air 91% Started with pt sitting without any supplemental oxygen. SPO2 at that time was 96%. Pt placed on her usual rate of 2 liters via nasal cannula and remained sitting. SPO2 increased to 99% Pt then walked while not on supplemental oxygen, only on room air. After 5 minutes, SPO2 noted to be 91%. Supplemental oxygen reintroduced. After walking for 5 minutes on her usually rate of 2 litersvia nasal canula her SPO2 increased to 96%. At this time, supplemental oxygen is recommended both in the home and when she leaves the home. Forbetter reliability and safer care, a potable compressor is recommended so that she doesn't run out of portable oxygen again. Script generated to be sent to [facility]. Ayla Grant RN * EMIL Coleman - 06/10/2024 3:20 PM EST Subjective Patient ID: Alexa here with significant other. She is in need of new script for oxygen. She has been on for past couple of years and still needs it. She was recently dx with pna and flu. Ambulation test shows oxygen drops to 90-91% with ambulating. She is also concerned about dry skin to both hands and lower arms. Also reports skin to hands cracks and causes pain. Review of Systems Constitutional: Negative for appetite change, fatigue and fever. HENT: Negative for ear pain, rhinorrhea and sore throat. Eyes: Negative for discharge. Respiratory: Positive for shortness of breath. Negative for cough. Cardiovascular: Negative for chest pain. Gastrointestinal: Negative for abdominal pain, constipation, diarrhea, nausea and vomiting. Genitourinary: Negative for difficulty urinating. Musculoskeletal: Negative for arthralgias and myalgias. Skin: Positive for rash. Negative for wound. Neurological: Negative for headaches. Hematological: Negative for adenopathy. Objective BP (!) 162/90 (BP Location: Left arm, Patient Position: Sitting, BP Cuff Size: Adult) Pulse 92 Temp 98 ??F (36.7 ??C) (Oral) Resp 21 Ht 5' 2 (1.575 m) Wt 313 lb 3.2 oz (142 kg) SpO2 94% BMI 57.29 kg/m?? Physical Exam Constitutional: Appearance: Normal appearance. She is obese. HENT: Head: Normocephalic. Right Ear: External ear normal. Left Ear: External ear normal. Nose: Nose normal. No congestion. Mouth/Throat: Mouth: Mucous membranes are moist. Eyes: Conjunctiva/sclera: Conjunctivae normal. Cardiovascular: Rate and Rhythm: Normal rate and regular rhythm. Heart sounds: Normal heart sounds. Pulmonary: Effort: Pulmonary effort is normal. Breath sounds: Normal breath sounds. No wheezing. Abdominal: General: Bowel sounds are normal. Palpations: Abdomen is soft. There is no mass. Tenderness: There is no abdominal tenderness. There is no guarding or rebound. Musculoskeletal: General: Normal range of motion. Cervical back: Normal range of motion. Skin: General: Skin is warm and dry. Capillary Refill: Capillary refill takes less than 2 seconds. Findings: Rash present. Comments: Erythematous scaly rash to bilateral hands and lower arms. No vesicles, no pustules, no petechiae or purpura. Neurological: General: No focal deficit present. Mental Status: She is alert and oriented to person, place, and time. Psychiatric: Mood and Affect: Mood normal. Behavior: Behavior normal. Assessment/Plan Diagnoses and all orders for this visit: Atopic dermatitis, unspecified type Cleanse with Dove Sensitive Skin soap. Apply Triamcinalone/CeraVe cream immediately after bathing to affected area. To mix this combination, empty 16 ounce jar of CeraVe cream into a plastic container and squeeze the entire 80 gram tube of Triamcinalone cream into the same container. Mix together well. After mixing keep at room temperature in a sealed container. Avoid products containing fragrances or lanolin. Avoid metals containing nickel. Hypoxia Oxygen de-sats with ambulation Oxygen via concentrator / nasal cannula prn Currently uses [employer] for oxygen supplies FU with PCP documented in this encounter Plan of Treatment Upcoming Encounters Date Type Department Care Team (Late st Contact Info) Description 08/31/2024 10:15 AM EDT Office Visit [facility] [address] [place] [address] Alessandra Díaz DO [address] [place] [phone] Scheduled Orders Name Type Priority Associated Diagnoses Orde r Schedule Nasal Cannula- Oxygen Therapy Respiratory Care Routine Hypoxia Expected: 06/10/2024 (Approximate), Expires: 06/10/2025 documented as of this encounter Visit Diagnoses Diagnosis Atopic dermatitis, unspecified type- Primary Hypoxia Hypoxemia documented in this encounter Additional Health Concerns Assessment Noted Time PHQ-9 Depression Total Score: 0 11/12/19 24 12:12 PM EDT documented as of this encounter Care Teams Transportation Broker Relationship Specialty Start Date End Date Alessandra Díaz DO [address] [place] [address] PCP - General Family Medicine 04/27/18 documented as of this encounter
--- OUTSIDE RECORDS SUMMARY | 2024-07-06 18:49 | XMS_ITS | Encounter Summary ---
Author Organization [employer] Address [address] [facility] 7 [place] [address] Care Team Providers Care Milling Machine Tender Name Role Phone Alessandra Díaz DO Primary Care Provider + [phone] Reason for Visit * Reason Onset Date Comments No Show 06/10/2024 Encounter Details Date Type Department Care Team ([facility] st Contact Info) Description 06/10/2024 Telephone [facility] [address] [place] [address] Alessandra Díaz DO [address] [place] [address] No Show Social History Tobacco Use Types Packs/Day Years [...] Telephone Encounter - Chanel Saucedo RN - 06/10/2024 3:10 PM EST No show noted. Pt is scheduled in [facility]. * Telephone Encounter - Bruna Vargas - 06/10/2024 2:54 PM EST Pt no showed to scheduled sick on site apt with pcp. documented in this encounter Plan of Treatment Upcoming Encounters Date Type Department Care Team (Late st Contact Info) Description 08/31/2024 10:15 AM EDT Office Visit [facility] [address] [place] [address] Alessandra Díaz DO [address] [place] [address] documented as of this encounter Visit Diagnoses Not on filedocumented in this encounter Additional Health Concerns Assessment Noted Time PHQ-9 Depression Total Score: 0 11/12/19 24 12:12 PM EDT documented as of this encounter Care Teams Milling Machine Tender Relationship Specialty Start Date End Date Alessandra Díaz DO [address] [place] [address] PCP - General Family Medicine 04/27/18 documented as of this encounter
--- OUTSIDE RECORDS SUMMARY | 2024-07-06 18:49 | XMS_ITS | Encounter Summary ---
Author Organization [employer] Address [address] [facility] 7t [place] [address] Care Team Providers Care Director Corporate Security Name Role Phone Alessandra Díaz DO Primary Care Provider + [phone] Encounter Details Date Type Department Care Team ([facility] st Contact Info) Description 04/12/2024 Telephone [facility] [address] [place], [place] [phone] Alessandra Díaz DO [address] [place], [place] [phone] Social History Tobacco Use Types Packs/Day Years [...] Description 08/31/2024 10:15 AM EDT Office Visit [facility] [address] [place] [address] Alessandra Díaz DO [address] [place] [address] documented as of this encounter Visit Diagnoses Not on filedocumented in this encounter Additional Health Concerns Assessment Noted Time PHQ-9 Depression Total Score: 0 11/12/19 24 12:12 PM EDT documented as of this encounter Care Teams Director Corporate Security Relationship Specialty Start Date End Date Alessandra Díaz DO [address] [place] [address] PCP - General Family Medicine 04/27/18 documented as of this encounter
--- OUTSIDE RECORDS SUMMARY | 2024-07-06 18:49 | XMS_ITS | Encounter Summary ---
Author Organization [employer] Address [address] [facility] 7 [place] [address] Care Team Providers Care Fur Stylist Name Role Phone Alessandra Díaz DO Primary Care Provider + [phone] Reason for Visit * Reason Comments Med Refill Encounter Details Date Type Department Care Team ([facility] st Contact Info) Description 06/29/2024 Refill [facility] [address] [place] [address] Alessandra Díaz DO [address] [place] [address] Social History Tobacco Use Types Packs/Day Years [...] Description 08/31/2024 10:15 AM EDT Office Visit [facility] [address] [place] [address] Alessandra Díaz DO [address] [place] [address] documented as of this encounter Visit Diagnoses Not on filedocumented in this encounter Additional Health Concerns Assessment Noted Time PHQ-9 Depression Total Score: 0 11/12/19 24 12:12 PM EDT documented as of this encounter Care Teams Fur Stylist Relationship Specialty Start Date End Date Alessandra Díaz DO [address] [place] [address] PCP - General Family Medicine 04/27/18 documented as of this encounter
--- OUTSIDE RECORDS SUMMARY | 2024-07-06 18:49 | XMS_ITS | Encounter Summary ---
Author Organization [employer] Address [address] [place] [address] 7 [place] [address] Care Team Providers Care Body Technician/Painter Name Role Phone Alessandra Díaz DO Primary Care Provider + [phone] Reason for Visit * Reason Onset Date Comments Appointment Request 08/25/2022 Encounter Details Date Type Department Care Team ([facility] st Contact Info) Description 08/25/2022 Telephone [facility] [address] [place] [address] Alessandra Díaz DO [address] [place], [place] [phone] Appointment Request Social History Tobacco Use Types Packs/Day Years Used Date Smoking Tobacco: Never Passive Smoke Exposure: Never Smokeless Tobacco: Never Alcohol Use Standard Drinks/Week Comments Never 0 (1 standard drink = 0.6 oz pur e alcohol) Depression Answer Date Recorded Patient Health Questionnaire-2 Score 0 05/09/2022 Comments Unknown Sex and Gender Information Value Date Recorded Sex Assigned at Female 02/24/2022 10:15 AM EDT Legal Sex Female 10:15 AM EDT Gender Identity Female 02/24/2022 10:15 AM EDT Sexual Orientation Straight 02/24/2022 10 :15 AM EDT COVID-19 Exposure Response Date Recorded In the last 10 days, have yo u been in contact with someone who was confirmed or suspected to have Coronavirus/COVID-19? No / Unsure 08/25/2022 3:15 PM EDT documented as of this encounter Miscellaneous Notes * Telephone Encounter - Venkata Ashley - 08/25/2022 4:26 PM EDT Tc from pt requesting a PAP appt. Please contact pt at [phone] documented in this encounter Plan of Treatment Upcoming Encounters Date Type Department Care Team (Late st Contact Info) Description 08/31/2024 10:15 AM EDT Office Visit [facility] [address] [place] [address] Alessandra Díaz DO [address] [place] [address] documented as of this encounter Visit Diagnoses Not on filedocumented in this encounter Care Teams Body Technician/Painter Relationship Specialty Start Date End Date Alessandra Díaz DO [address] [place] [address] PCP - General Family Medicine 04/27/18 documented as of this encounter
--- OUTSIDE RECORDS SUMMARY | 2024-07-06 18:49 | XMS_ITS | Encounter Summary ---
Author Organization [employer] Address [address] [facility] 7 [place] [address] Care Team Providers Care Bank Accountant Name Role Phone JocelynAlessandra watkins Primary Care Provider + [phone] Reason for Visit * Reason Onset Date Comments Durable Medical Equipment 06/10/2024 Encounter Details Date Type Department Care Team ([facility] st Contact Info) Description 06/10/2024 Telephone [facility] [address] [place] [address] Ayla Grant, RN [address] [place] [address] Durable Medical Equipment Social History Tobacco Use Types Packs/Day Years [...] encounter Miscellaneous Notes * Telephone Encounter - Ayla Grant RN - 06/10/2024 4:10 PM EST Faxed script to [facility] and gave pt's spouse a copy as well as he has concerns regarding pt not beingable to leave the home this weekend documented in this encounter Plan of Treatment Upcoming Encounters Date Type Department Care Team (Late st Contact Info) Description 08/31/2024 10:15 AM EDT Office Visit [facility] [address] [place] [address] Alessandra Díaz DO [address] [place] [address] documented as of this encounter Visit Diagnoses Not on filedocumented in this encounter Additional Health Concerns Assessment Noted Time PHQ-9 Depression Total Score: 0 11/12/19 24 12:12 PM EDT documented as of this encounter Care Teams Bank Accountant Relationship Specialty Start Date End Date Alessandra Díaz DO [address] [place] [address] PCP - General Family Medicine 04/27/18 documented as of this encounter
[2024-07-06 19:54] VITALS: BP 172/74; PULSE 83; RESP 20; TEMP 36.8; O2SAT 98
[2024-07-06 20:00] VITALS: BP 172/74; PULSE 83; RESP 20; TEMP 36.8; O2SAT 98
== END 2024-07-06 20:10 | disposition home or self-care (01) ==
PROVIDERS: Emergency Provider Emergency Medicine
DX: S20.214A Contusion of middle front wall of thorax, initial encounter (principal); R07.89 Other chest pain; J44.9 Chronic obstructive pulmonary disease, unspecified; V43.62XA Car passenger injured in collision with other type car in traffic accident, initial encounter; Y93.9 Activity, unspecified; Y92.410 Unspecified street and highway as the place of occurrence of the external cause; Y99.8 Other external cause status; Z99.81 Dependence on supplemental oxygen; Z79.899 Other long term (current) drug therapy
CPT/HCPCS: 71250; 96372; 99284; J1885

== ENCOUNTER → 2024-07-06 17:51 | Outpatient (BNV) | payer MEDICAID, SELFPAY | PROVIDERS: Emergency Provider Emergency Medicine; Visit Provider Radiology Vascular & Interventional Radiology | DX: K76.0 Fatty (change of) liver, not elsewhere classified (principal); R16.0 Hepatomegaly, not elsewhere classified | CPT/HCPCS: 71250 ==

== ENCOUNTER 2024-07-28 14:22 | Outpatient (REF) | payer OTHER, SELFPAY ==
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
--- NOTE | ~2024-07-28 | XR_ITS ---
EXAMINATION: XR CERVICAL SPINE CLINICAL INFORMATION: PAIN COMPARISON: None available. TECHNIQUE: 3 views of the cervical spine were obtained. FINDINGS: There is a minimal right convex scoliosis. There is mild straightening of the normal lordosis. The C7-T1 interspaces obscured on the lateral projection due to the patient's shoulder. The C1-2 articulation is intact and aligned. Craniocervical junction is intact. There is no fracture, compression deformity, or suspicious bone lesion. There is no subluxation identified. Moderate disc degeneration present at C4-5 and C5-6. Severe degeneration is present at C6-7. There is normal facet alignment with mild multilevel bilateral degenerative hypertrophic facet arthrosis. There is no prevertebral soft tissue abnormality. XR/XR cervical spine 3V IMPRESSION: 1. No acute findings of the cervical spine. 2. Moderate spondylosis most significant C5-6 and C6-7. Mild dextroconvex scoliosis. Electronically signed by: Yvon Turner MD 07/28/2024 04:17 PM EDT
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
--- OUTSIDE RECORDS SUMMARY | 2024-07-28 15:55 | XMS_ITS | Encounter Summary ---
Author Organization [employer] Address [address] [facility] 7t [place] [address] Care Team Providers Care Beer Maker Name Role Phone Alessandra Díaz DO Primary Care Provider + [phone] Encounter Details Date Type Department Care Team ([facility] st Contact Info) Description 04/03/2023 Telephone [facility] [address] [place] [address] Alessandra Díaz DO [address] [place], [place] [phone] Social History Tobacco Use Types Packs/Day Years [...] Description 08/31/2024 10:15 AM EDT Office Visit [facility] [address] [place], [place] [phone] Alessandra Díaz DO [address] [place] [address] documented as of this encounter Visit Diagnoses Not on filedocumented in this encounter Care Teams Beer Maker Relationship Specialty Start Date End Date Alessandra Díaz DO [address] [place] [address] PCP - General Family Medicine 04/27/18 documented as of this encounter
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
--- OUTSIDE RECORDS SUMMARY | 2024-07-28 15:55 | XMS_ITS | Encounter Summary ---
Author Organization [employer] Address [address] [facility] 7 [place] [address] Care Team Providers Care Certified Nurses Aide Name Role Phone Alessandra Díaz DO Primary Care Provider + [phone] Encounter Details Date Type Department Care Team ([facility] st Contact Info) Description 04/29/2024 Telephone [facility] [address] [place], [place] [phone] Alessandra Díaz DO [address] [place], [place] [phone] Social History Tobacco Use Types Packs/Day Years [...] availability and will like to be seen [phone] documented in this encounter Plan of Treatment Upcoming Encounters Date Type Department Care Team (Late st Contact Info) Description 08/31/2024 10:15 AM EDT Office Visit [facility] [address] [place] [address] Alessandra Díaz DO [address] [place] [address] documented as of this encounter Visit Diagnoses Not on filedocumented in this encounter Additional Health Concerns Assessment Noted Time PHQ-9 Depression Total Score: 0 11/12/19 24 12:12 PM EDT documented as of this encounter Care Teams Certified Nurses Aide Relationship Specialty Start Date End Date Alessandra Díaz DO [address] [place] [address] PCP - General Family Medicine 04/27/18 documented as of this encounter
--- OUTSIDE RECORDS SUMMARY | 2024-07-28 15:55 | XMS_ITS | Encounter Summary ---
Author Organization [employer] Address 75 [facility] 7 [place] [address] Care Team Providers Care Gis Engineer Name Role Phone JocelynAlessandra watkins Primary Care Provider + [phone] Reason for Visit * Reason Comments Med Refill Encounter Details Date Type Department Care Team ([facility] st Contact Info) Description 07/21/2024 Refill [facility] [address] [place], [place] [phone] Name, MD Grey [address] [place] [address] Social History Tobacco Use Types Packs/Day Years [...] 08/31/2024 10:15 AM EDT Office Visit [facility] [address] [place] [address] Alessandra Díaz DO [address] [place] [address] documented as of this encounter Visit Diagnoses Not on filedocumented in this encounter Additional Health Concerns Assessment Noted Time PHQ-9 Depression Total Score: 0 11/12/19 24 12:12 PM EDT documented as of this encounter Care Teams Gis Engineer Relationship Specialty Start Date End Date Alessandra Díaz DO [address] [place] [address] PCP - General Family Medicine 04/27/18 documented as of this encounter
--- OUTSIDE RECORDS SUMMARY | 2024-07-28 15:55 | XMS_ITS | Encounter Summary ---
Author Organization [employer] Address [address] [facility] 7 [place] [address] Care Team Providers Care Button Sewing Machine Operator Name Role Phone Alessandra Díaz DO Primary Care Provider + [phone] Reason for Visit * Reason Comments Med Refill Encounter Details Date Type Department Care Team ([facility] st Contact Info) Description 06/17/2024 Refill [facility] MED[facility]INE [address] [place] [address] Alessandra Díaz DO [address] [place] [address] Social History Tobacco Use Types Packs/Day Years [...] Description 08/31/2024 10:15 AM EDT Office Visit [facility] [address] [place] [address] Alessandra Díaz DO [address] [place] [address] documented as of this encounter Visit Diagnoses Not on filedocumented in this encounter Additional Health Concerns Assessment Noted Time PHQ-9 Depression Total Score: 0 11/12/19 24 12:12 PM EDT documented as of this encounter Care Teams Button Sewing Machine Operator Relationship Specialty Start Date End Date Alessandra Díaz DO [address] [place] [address] PCP - General Family Medicine 04/27/18 documented as of this encounter
--- OUTSIDE RECORDS SUMMARY | 2024-07-28 15:55 | XMS_ITS | Encounter Summary ---
Author Organization [employer] Address 75 [facility] 7t [place] [address] Care Team Providers Care Programming Instructor Name Role Phone CarleneAlessandra jeronimo Primary Care Provider + [phone] Encounter Details Date Type Department Care Team (Latest Contact Info) Description 07/26/2024 Travel Social History Tobacco Use Types Packs/Day Years [...] Office Visit [facility] MED[facility]INE [address] [place] [address] Alessandra Díaz DO [address] [place] [address] documented as of this encounter Visit Diagnoses Not on filedocumented in this encounter Additional Health Concerns Assessment Noted Time PHQ-9 Depression Total Score: 0 11/12/19 24 12:12 PM EDT documented as of this encounter Care Teams Programming Instructor Relationship Specialty Start Date End Date Alessandra Díaz DO [address] [place] [address] PCP - General Family Medicine 04/27/18 documented as of this encounter
--- OUTSIDE RECORDS SUMMARY | 2024-07-28 15:55 | XMS_ITS | Encounter Summary ---
Author Organization [employer] [facility] Address [address] [place] [address] 7 [place] [address] Care Team Providers Care Customer Experience Specialist Name Role Phone Alessandra Díaz DO Primary Care Provider [phone] Encounter Details Date Type Department Care Team (Late st Contact Info) Description 04/08/2022 Telephone [facility] MEDICINE [address] [place] [phone] Alessandra Díaz DO [address] [place] [address] Social History Tobacco Use Types Packs/Day Years [...] Description 08/31/2024 10:15 AM EDT Office Visit [facility] MED[facility]INE [address] [place] [phone] Alessandra Díaz DO [address] [place] [address] documented as of this encounter Visit Diagnoses Not on filedocumented in this encounter Care Teams Customer Experience Specialist Relationship Specialty Start Date End Date Alessandra Díaz DO [address] [place] [address] PCP - General Family Medicine 04/27/18 documented as of this encounter
--- OUTSIDE RECORDS SUMMARY | 2024-07-28 15:55 | XMS_ITS | Encounter Summary ---
Author Organization [employer] Address [address] [place] [address] 7 [place] [address] Care Team Providers Care Crime Scene Technician Name Role Phone Alessandra Díaz DO Primary Care Provider [phone] Reason for Visit * Reason Onset Date Comments Appointment Request 08/25/2022 Encounter Details Date Type Department Care Team ([facility] st Contact Info) Description 08/25/2022 Telephone [facility]INE [address] [place] [address] Alessandra Díaz DO [address] [place], [place] [phone] Appointment Request Social History Tobacco Use Types [...] a PAP appt. Please contact pt at [phone] documented in this encounter Plan of Treatment Upcoming Encounters Date Type Department Care Team (Late st Contact Info) Description 08/31/2024 10:15 AM EDT Office Visit [facility] [address] [place] [address] Alessandra Díaz DO [address] [place] [address] documented as of this encounter Visit Diagnoses Not on filedocumented in this encounter Care Teams Crime Scene Technician Relationship Specialty Start Date End Date Alessandra Díaz DO [address] [place] [address] PCP - General Family Medicine 04/27/18 documented as of this encounter
--- OUTSIDE RECORDS SUMMARY | 2024-07-28 15:55 | XMS_ITS | Encounter Summary ---
Author Organization [employer] Address 75 [facility] 7 [place] [address] Care Team Providers Care Sample Dye Mixer Name Role Phone Alessandra Díaz DO Primary Care Provider + [phone] Reason for Visit * Reason Onset Date Comments No Show 07/25/2024 Encounter Details Date Type Department Care Team ([facility] st Contact Info) Description 07/25/2024 Telephone [facility] MEDICINE [address] [place] [address] Alessandra Díaz DO [address] [place] [address] No Show Social History Tobacco Use Types [...] encounter Miscellaneous Notes * Telephone Encounter - Sally Cruz RN - 07/25/2024 3:13 PM EDT TC placed to pt., pt. Again requests to r/s . Agrees to tomorrow 07/26/24 at 11:45am with PCP * Telephone Encounter - Nancy Crowell - 07/25/2024 1:54 PM EDT Pt no showed to appt on 07/25/24 documented in this encounter Plan of Treatment Upcoming Encounters Date Type Department Care Team (Late st Contact Info) Description 08/31/2024 10:15 AM EDT Office Visit [facility] MEDICINE [address] [place] [address] Alessandra Díaz DO [address] [place] [address] documented as of this encounter Visit Diagnoses Not on filedocumented in this encounter Additional Health Concerns Assessment Noted Time PHQ-9 Depression Total Score: 0 11/12/19 24 12:12 PM EDT documented as of this encounter Care Teams Sample Dye Mixer Relationship Specialty Start Date End Date Alessandra Díaz DO [address] [place] [phone] PCP - General Family Medicine 04/27/18 documented as of this encounter
--- OUTSIDE RECORDS SUMMARY | 2024-07-28 15:55 | XMS_ITS | Encounter Summary ---
Author Organization [employer] Address 75 [facility] 7t [place] [address] Care Team Providers Care Lead Caregiver Name Role Phone ArjunAlessandra Primary Care Provider + [phone] Reason for Visit * Reason Comments Med Refill Encounter Details Date Type Department Care Team ([facility] st Contact Info) Description 03/08/2024 Refill [facility] [address] [place] [address] Anuja Interiano MD [address] [place] [address] Acute atopic conjunctivitis, bilateral Social History Tobacco [...] Description 08/31/2024 10:15 AM EDT Office Visit [facility] [address] [place] [address] Alessandra Díaz DO [address] [place] [address] documented as of this encounter Visit Diagnoses Diagnosis Acute atopic conjunctivitis, bilateral documented in this encounter Additional Health Concerns Assessment Noted Time PHQ-9 Depression Total Score: 0 11/12/19 24 12:12 PM EDT documented as of this encounter Care Teams Lead Caregiver Relationship Specialty Start Date End Date Alessandra Díaz DO [address] [place] [address] PCP - General Family Medicine 04/27/18 documented as of this encounter
--- OUTSIDE RECORDS SUMMARY | 2024-07-28 15:55 | XMS_ITS | Encounter Summary ---
Author Organization [employer] Address 75 [facility] 7 [place] [address] Care Team Providers Care Pony Ride Operator Name Role Phone Alessandra Díaz DO Primary Care Provider + [phone] Encounter Details Date Type Department Care Team ([facility] st Contact Info) Description 04/12/2024 Telephone [facility] MED[facility]INE [address] [place] [address] Alessandra Díaz DO [address] [place], [place] [phone] Social History Tobacco Use Types Packs/Day Years [...] 08/31/2024 10:15 AM EDT Office Visit [facility] [address] [place] [address] Alessandra Díaz DO [address] [place] [address] documented as of this encounter Visit Diagnoses Not on filedocumented in this encounter Additional Health Concerns Assessment Noted Time PHQ-9 Depression Total Score: 0 11/12/19 24 12:12 PM EDT documented as of this encounter Care Teams Pony Ride Operator Relationship Specialty Start Date End Date Alessandra Díaz DO [address] [place] [address] PCP - General Family Medicine 04/27/18 documented as of this encounter
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
== END 2024-07-28 14:23 | disposition home or self-care (01) ==
LOC: HO.HHCX 14:22
PROVIDERS: Visit Provider Family Medicine
DX: M54.50 Low back pain, unspecified (principal); M54.2 Cervicalgia; M54.6 Pain in thoracic spine; V89.2XXD Person injured in unspecified motor-vehicle accident, traffic, subsequent encounter
CPT/HCPCS: 72040; 72070; 72100

== ENCOUNTER → 2024-07-28 14:24 | Outpatient (BNV) | payer OTHER, SELFPAY | PROVIDERS: Visit Provider Radiology Diagnostic Radiology | DX: M47.816 Spondylosis without myelopathy or radiculopathy, lumbar region (principal); M41.9 Scoliosis, unspecified; M47.814 Spondylosis without myelopathy or radiculopathy, thoracic region | CPT/HCPCS: 72040; 72070; 72100 ==

== ENCOUNTER 2024-08-13 17:37 | Emergency (ER) | payer MEDICAID, SELFPAY ==
--- NOTE | ~2024-08-13 | XR_ITS ---
CLINICAL HISTORY: SOB, cough 2 view chest x-ray Comparison: CR - XR CHEST 2V - 11/13/20 16:01 EDT Findings: There are bilateral interstitial changes. No consolidation, pleural effusion or pneumothorax. The cardiac silhouette is prominent. No acute fracture. IMPRESSION: 1. Bilateral interstitial changes secondary to pneumonitis or fluid overload. 2. No segmental pneumonia or significant pleural effusion. This document has been electronically signed by: Shania Leal DO on 08/13/2024 18:37:23
[2024-08-13 17:45] VITALS: BP 160/62; PULSE 87; RESP 20; TEMP 36.6; O2SAT 92; BMI 56.4
--- NOTE | 2024-08-13 17:47 | ED_ITS ---
HPI - General Adult General Chief complaint: Upper Respiratory Symptoms Stated complaint: sob Time Seen by Provider: 08/13/24 18:00 Source: patient, family () and RN notes reviewed Mode of arrival: ambulatory Limitations: no limitations History of Present Illness ED Provider: Mary HPI narrative: 49-year-old female with a past medical history significant for obesity, obstructive sleep apnea, chronic hypoxic respiratory failure on supplemental oxygen, 2 L via nasal cannula presenting for evaluation of cough. Patient reports a 3 day history of general body aches, coughing and shortness of breath. She has no nausea or vomiting. Her is here with similar symptoms Denies any recent travel The patient is noncompliant with her CPAP but general uses her nasal cannula at bedtime She reports that she does sometimes get leg swelling but currently does not have any leg swelling No other complaints or concerns at this time Related Data Home Medications ?Medication ?Instructions ?Recorded ?Confirmed ascorbic acid (vitamin C) 250 mg 1 tab PO DAILY 08/26/20 01/23/21 tablet ergocalciferol (vitamin D2) 1,250 1 cap PO QWEEK 08/26/20 01/23/21 mcg (50,000 unit) capsule methadone 10 mg/mL oral syringe 118 mg PO DAILY 08/26/20 08/26/20 (FOR ORAL USE ONLY) methadone 10 mg/mL oral 118 mg PO DAILY 08/27/20 01/23/21 concentrate (Methadone Intensol) Previous Rx's ?Medication ?Instructions ?Recorded ketorolac 10 mg tablet 10 mg PO Q8H PRN pain #10 tabs 05/26/24 levofloxacin 500 mg tablet 500 mg PO DAILY #6 tabs 05/26/24 oseltamivir 75 mg capsule (Tamiflu) 75 mg PO BID 5 days #10 caps 05/26/24 prednisone 50 mg tablet 50 mg PO DAILY #5 tabs 05/26/24 Allergies Allergy/AdvReac Type Severity Reaction Status Date / Time No Known Allergies Allergy Unknown Verified 08/13/24 17:47 Review of Systems 2 Constitutional: Constitutional: Reports body ache(s), Denies chills, Denies fever(s) and Denies headache(s) ENT: Denies vertigo, Denies dizziness and Denies headache(s) Cardiovascular: Cardiovascular: Denies chest pain and Reports dyspnea Respiratory: Respiratory: Reports cough, Reports dyspnea and Denies wheezing Gastrointestinal: Gastrointestinal: Denies abdominal pain, Denies nausea and Denies vomiting Musculoskeletal: Musculoskeletal: Denies back pain Integumentary/Breasts: Skin/Breast: Denies rash Neurologic: Denies vertigo, Denies dizziness and Denies headache(s) Psychiatric: Psychiatric: Denies anxiety Allergic/Immunologic: Allergic/Immunologic: Denies wheezing PMFSH Past Medical History Surgical History Hx of section History of cholecystectomy Family History Family History Father No problems noted. Mother Arthritis Social History Social History Household Members: Children Household Members Other:: Two children, recently Housing: Apartment Do you presently have visiting nurse or other home services: No Unable to assess alcohol history related to: Unknown Patient Tobacco Use Status: Never used Tobacco Second Hand Smoke Exposure: No Advance Directives: No Advance Directives Information Provided: No Do you have a plan to hurt others: No Plan service: No Current occupational status: disabled Physical Exam ED Vital Signs: Vital Signs - 24 hr 08/13/24 17:45 Temperature 97.9 F Pulse Rate 87 Respiratory Rate 20 Blood Pressure 160/62 H Pulse Oximetry 92 Oxygen Delivery Method Room Air BMI result Body Mass Index 56.4 Const General: healthy appearing, comfortable, no acute distress, alert and awake Nutritional Appearance: well nourished Orientation/consciousness: patient oriented x3 HENMT Head: Yes normocephalic and Yes atraumatic Eyes Eyelids: Yes eyelids normal Conjunctivae: conjunctivae normal Sclerae: sclerae normal Corneas: corneas normal Pupils: Equal, round and reactive pupils present EOM: EOMs intact bilaterally Neck Neck: Yes full ROM Resp Other: Very faint expiratory wheeze heard in right lower lobe Effort & Inspection: normal respiratory effort, able to speak in complete sentences and not labored Cardio Other: No lower extremity edema. Rate: regular rate Rhythm: regular rhythm GI Inspection: No distended Palpation (GI): Soft to palpation, not firm, nontender, no guarding and not rigid Skin General skin exam: elasticity normal Neuro General: patient oriented x3 Cranial nerves: Yes Equal, round and reactive pupils present and Yes Bilaterally intact EOM present Cognition (Neuro): normal cognition Extrem Other: Moving all extremities well without any obvious deformities Course Course Course Narrative: This is an RME: Additional HPI, ROS, PE not included below will be deferred to primary provider. RME assessment and note performed by: Natalie Rose PA-C This is a 49-year-old female, with a history of LETICIA, chronic hypoxemic respiratory failure on 2L NC, obesity, who presents emergency department with complaints of body aches, sore throat, cough. Patient is speaking full sentences under no acute distress. Vital signs within normal limits. Plan: Labs, EKG, chest x-ray, further ER evaluation needed. Reevaluation(s) Reevaluation #1: In his chest x-ray showed possible pneumonitis versus CHF. She has no evidence to suggest acute congestive heart. No lower extremity edema, no crackles on exam, BNP within normal limits. I compared her chest x-ray today to her most recent 1 from April and today's x-ray does appear improved. Plan to discharge the patient with symptomatic care only discussed return precautions with the patient Time: 19:21 Medical Decision Making Medical Decision Making [facility] Narrative: 49-year-old female with past medical history as above presents for evaluation of cough, body aches and shortness of breath. She was similar symptoms radiating this suspicion for viral illness. Her chest x-ray shows pneumonitis versus fluid overload. She was no lower extremity edema, no crackles on exam. I added on a BNP but I have a lower suspicion for acute CHF. No fevers or chills reported, she has no leukocytosis.. She was quite well appearing with stable vital signs on her baseline O2 supplementation. Viral swabs negative for influenza, COVID-19, RSV. Differential Diagnosis Differential Diagnoses: The differential diagnosis associated with the presentation includes Upper respiratory infection Viral illness Pneumonia Pneumonitis CHF Bronchitis Admission/Observation Consideration of admission/observation: Escalation of care including admission/observation considered Patient does not require additional oxygen supplementation and has no signs bacterial infection or sepsis. Lab Data [facility] Lab Attestation statement: I reviewed the patient's lab results. No leukocytosis or anemia. Normal platelet count. No electrolyte abnormalities. Random glucose of 188 but no evidence of DKA. 08/13/24 17:56 08/13/24 17:56 Labs: Lab Results 08/13/24 Range/Units 17:56 WBC 8.1 (4.8-10.8) X10*3/uL RBC 4.11 L (4.20-5.50) X10*6/uL Hgb 12.3 (12.0-16.0) g/dl Hct 37.0 (37.0-47.0) % MCV 90.0 (80.0-98.0) fL MCH 29.9 (27.0-33.0) pg MCHC 33.2 (31.0-35.0) g/dl RDW 13.3 (11.0-16.0) % Plt Count 195 (160-400) X10*3/uL MPV 11.8 (9.4-12.3) fL Immature Gran % (Auto) 0.6 H (0.0-0.4) % Neut % (Auto) 71.4 (45-73) % Lymph % (Auto) 17.7 L (20-40) % Kane % (Auto) 7.7 (2-11) % Eos % (Auto) 2.2 (0-4) % Baso % (Auto) 0.4 (0-2) % Lymph # (Auto) 1.4 (1.2-4.9) X10*3/uL Kane # (Auto) 0.6 (0.1-1.2) X10*3/uL Eos # (Auto) 0.2 (0.0-0.4) X10*3/uL Baso # (Auto) 0.0 (0.0-0.2) X10*3/uL Abs Immat Gran (auto) 0.05 H (0.00-0.03) X10*3/uL Absolute Neuts (auto) 5.8 (2.0-8.3) x10*3/uL Absolute Nucleated RBC 0.000 (0.0-0.012) X10*3/uL Nucleated RBC % (auto) 0.0 (0.0-0.2) /100WBC Sodium 138 (135-145) mmol/L Potassium 4.1 (3.3-5.1) mmol/L Chloride 101 (96-108) mmol/L Carbon Dioxide 28 (22-29) mmol/L Anion Gap 13 (12-20) BUN 12 (9-16) mg/dL Creatinine 0.73 (0.5-1.4) mg/dL Estim Creat Clear Calc 126.7 Estimated GFR > 60 Random Glucose 188 H (60-115) mg/dL Calcium 9.7 (8.4-10.2) mg/dL Total Bilirubin 0.3 (0.0-1.0) mg/dL AST 43 H (5-31) U/L ALT 57 H (0-31) U/L Alkaline Phosphatase 55 (39-117) U/L B-Natriuretic Peptide 32 (<100) pg/mL Total Protein 7.3 (6.5-8.0) g/dL Albumin 4.1 (3.5-5.0) g/dL Influenza Type A (PCR) NEGATIVE (Negative) Influenza Type B (PCR) NEGATIVE (Negative) RSV RNA Qual (PCR) NEGATIVE (Negative) SARS-CoV-2 RNA (RT-PCR) NEGATIVE (Negative) Independent Interpretation I performed an independent interpretation of an: Plain X-Ray (No focal consolidation) Radiology Impression Discussion of test interpretation with radiology: I have reviewed the radiologist's reading. Radiologist Impression: Findings: There are bilateral interstitial changes. No consolidation, pleural effusion or pneumothorax. The cardiac silhouette is prominent. No acute fracture. IMPRESSION: 1. Bilateral interstitial changes secondary to pneumonitis or fluid overload. 2. No segmental pneumonia or significant pleural effusion. This document has been electronically signed by: Shania Leal DO on 08/13/2024 18:37:23 Discharge Plan Discharge Clinical Impression: Cough Patient Disposition: Home, Self-Care Instructions: Acute Cough (ED) Additional Instructions: Your workup in the ER today was reassuring you may use [id number] cough medicine. Take all of your other medications as prescribed. Return for new or worsening symptoms, especially if you develop a fever Prescriptions: No Action ascorbic acid (vitamin C) 250 mg tablet 1 tab PO DAILY ergocalciferol (vitamin D2) 1,250 mcg (50,000 unit) capsule 1 cap PO QWEEK methadone 10 mg/mL Syringe 118 mg PO DAILY methadone [Methadone Intensol] 10 mg/mL Concentrate 118 mg PO DAILY oseltamivir [Tamiflu] 75 mg capsule 75 mg PO BID 5 Days Qty: 10 0RF ketorolac 10 mg tablet 10 mg PO Q8H PRN (Reason: pain) Qty: 10 0RF Rx Instructions: maximum total duration of 5 days from all oral, intranasal, or parenteral formulations levofloxacin 500 mg tablet 500 mg PO DAILY Qty: 6 0RF prednisone 50 mg tablet 50 mg PO DAILY Qty: 5 0RF Print Language: Ugandan
[2024-08-13 18:00] LABS: MANUAL DIFF FLAG NO
[2024-08-13 18:05] LABS: Basophils Percent Auto 0.4 % (0-2); Eosinophils Absolute Auto 0.2 X10*3/uL (0.0-0.4); Eosinophils Percent Auto 2.2 % (0-4); Hemoglobin 12.3 g/dl (12.0-16.0); Imm Gran Abs Auto 0.05 X10*3/uL (0.00-0.03); Imm Gran Pct Auto 0.6 % (0.0-0.4); Lymphocytes Absolute Auto 1.4 X10*3/uL (1.2-4.9); Lymphocytes Percent Auto 17.7 % (20-40); Mean Corpuscular HGB Conc 33.2 g/dl (31.0-35.0); Mean Corpuscular Hemoglobin 29.9 pg (27.0-33.0); Mean Platelet Volume 11.8 fL (9.4-12.3); Monocytes Absolute Auto 0.6 X10*3/uL (0.1-1.2); Monocytes Percent Auto 7.7 % (2-11); Neutrophils Absolute Auto 5.8 x10*3/uL (2.0-8.3); Neutrophils Percent Auto 71.4 % (45-73); Platelet Count 195 X10*3/uL (160-400); Red Blood Count 4.11 X10*6/uL (4.20-5.50); Red Cell Distribution Width 13.3 % (11.0-16.0); White Blood Count 8.1 X10*3/uL (4.8-10.8)
[2024-08-13 18:21] LABS: Albumin Level 4.1 g/dL (3.5-5.0); Alkaline Phosphatase 55 U/L (39-117); Anion Gap 13 (12-20); Aspartate Amino Transferase 43 U/L (5-31); Bilirubin Total 0.3 mg/dL (0.0-1.0); Blood Urea Nitrogen 12 mg/dL (9-16); Calcium 9.7 mg/dL (8.4-10.2); Carbon Dioxide 28 mmol/L (22-29); Chloride 101 mmol/L (96-108); Creatinine Clr Calc Pharmacy 126.7; Estimated Glomerular Filt Rate > 60; Glucose Random 188 mg/dL (60-115); Potassium 4.1 mmol/L (3.3-5.1); Sodium 138 mmol/L (135-145); Total Protein 7.3 g/dL (6.5-8.0)
--- OUTSIDE RECORDS SUMMARY | 2024-08-13 18:25 | XMS_ITS | Encounter Summary ---
Author Organization [employer] Address [address] [facility] [address] [place] [address] Care Team Providers Care Grain Operator Name Role Phone Alessandra Díaz DO Primary Care Provider + [phone] Encounter Details Date Type Department Care Team ([facility] st Contact Info) Description 04/29/2024 Telephone [facility] [address] [place], [place] [phone] Alessandra Díaz DO [address] [place], [place] [phone] Social History Tobacco Use Types Packs/Day Years [...] availability and will like to be seen [phone] documented in this encounter Plan of Treatment Upcoming Encounters Date Type Department Care Team (Late st Contact Info) Description 08/31/2024 10:15 AM EDT Office Visit [facility] [address] [place] [address] Alessandra Díaz DO [address] [place] [address] 09/16/2024 1:30 PM EDT Office Visit [facility] ADULT DENTAL [address] [place] [address] Ricardo Downs DDS [address] [place] [address] documented as of this encounter Visit Diagnoses Not on filedocumented in this encounter Additional Health Concerns Assessment Noted Time PHQ-9 Depression Total Score: 0 11/12/19 24 12:12 PM EDT documented as of this encounter Care Teams Grain Operator Relationship Specialty Start Date End Date Alessanrda Díaz DO [address] [place] [address] PCP - General Family Medicine 04/27/18 documented as of this encounter
--- OUTSIDE RECORDS SUMMARY | 2024-08-13 18:25 | XMS_ITS | Encounter Summary ---
Author Organization [employer] Address [address] [facility] [address] [place] [address] Care Team Providers Care Load Dispatcher Local Name Role Phone Alessandra Díaz DO Primary Care Provider + [phone] Reason for Visit * Reason Comments Med Refill Encounter Details Date Type Department Care Team ([facility] st Contact Info) Description 08/11/2024 Refill [facility] MEDICINE [address] [place] [address] Alessandra Díaz DO [address] [place] [address] Social History Tobacco Use Types Packs/Day Years Used Date Smoking Tobacco: Never Passive Smoke Exposure: Never Smokeless Tobacco: Current Alcohol Use Standard Drinks/Week Comments Never 0 [...] Office Visit [facility] MEDICINE [address] [place] [address] Alessandra Díaz DO [address] [place] [address] 09/16/2024 1:30 PM EDT Office Visit [facility] ADULT DENTAL [address] [place] [address] Ricardo Downs DDS [address] [place] [address] documented as of this encounter Visit Diagnoses Not on filedocumented in this encounter Additional Health Concerns Assessment Noted Time PHQ-9 Depression Total Score: 0 11/12/19 24 12:12 PM EDT documented as of this encounter Care Teams Load Dispatcher Local Relationship Specialty Start Date End Date Alessandra Díaz DO [address] [place] [address] PCP - General Family Medicine 04/27/18 documented as of this encounter
--- OUTSIDE RECORDS SUMMARY | 2024-08-13 18:25 | XMS_ITS | Encounter Summary ---
Author Organization [employer] Address [address] [facility] [address]t [place] [address] Care Team Providers Care Interlocking And Signal Mechanic Name Role Phone Alessandra Díaz DO Primary Care Provider + [phone] Encounter Details Date Type Department Care Team ([facility] st Contact Info) Description 04/03/[address] [facility] MEDICINE [address] [place] [address] Alessandra Díaz DO [address] [place], [place] [phone] Social History Tobacco Use Types Packs/Day Years [...] 10:15 AM EDT Office Visit [facility] MEDICINE [address] [place] [address] Alessandra Díaz DO [address] [place] [address] 09/16/2024 1:30 PM EDT Office Visit [facility] ADULT DENTAL [address] [place] [address] Ricardo Downs DDS [address] [place] [address] documented as of this encounter Visit Diagnoses Not on filedocumented in this encounter Care Teams Interlocking And Signal Mechanic Relationship Specialty Start Date End Date Alessandra Díaz DO [address] [place] [address] PCP - General Family Medicine 04/27/18 documented as of this encounter
--- OUTSIDE RECORDS SUMMARY | 2024-08-13 18:25 | XMS_ITS | Encounter Summary ---
Author Organization [employer] Address [address] [place] [address] [address] [place] [address] Care Team Providers Care Pharmacoepidemiologist Name Role Phone Alessandra Díaz DO Primary Care Provider + [phone] Reason for Visit * Reason Onset Date Comments Appointment Request 08/25/2022 Encounter Details Date Type Department Care Team ([facility] st Contact Info) Description 08/25/2022 Telephone [facility] MEDICINE [address] [place] [address] Alessandra Díaz DO [address] [place], [place] [phone] Appointment Request Social History Tobacco Use Types [...] a PAP appt. Please contact pt at [phone] documented in this encounter Plan of Treatment Upcoming Encounters Date Type Department Care Team (Late st Contact Info) Description 08/31/2024 10:15 AM EDT Office Visit [facility] MED[facility]INE [address] [place] [address] Alessandra Díaz DO [address] [place] [address] 09/16/2024 1:30 PM EDT Office Visit [facility] ADULT DENTAL [address] [place] [address] Ricardo Downs DDS [address] [place] [address] documented as of this encounter Visit Diagnoses Not on filedocumented in this encounter Care Teams Pharmacoepidemiologist Relationship Specialty Start Date End Date Alessandra Díaz DO [address] [place] [address] PCP - General Family Medicine 04/27/18 documented as of this encounter
--- OUTSIDE RECORDS SUMMARY | 2024-08-13 18:25 | XMS_ITS | Encounter Summary ---
Author Organization [employer] Address [address] [facility] [address] [place] [address] Care Team Providers Care Director Of Construction Name Role Phone Alessandra Díaz DO Primary Care Provider + [phone] Encounter Details Date Type Department Care Team ([facility] st Contact Info) Description 04/12/2024 Telephone [facility] MEDICINE [address] [place] [address] Alessandra Díaz DO [address] [place], [place] [phone] Social History Tobacco Use Types Packs/Day Years [...] Description 08/31/2024 10:15 AM EDT Office Visit [facility] MEDICINE [address] [place] [address] Alessandra Díaz DO [address] [place] [address] 09/16/2024 1:30 PM EDT Office Visit [facility] ADULT DENTAL [address] [place] [address] Ricardo Downs DDS [address] [place] [address] documented as of this encounter Visit Diagnoses Not on filedocumented in this encounter Additional Health Concerns Assessment Noted Time PHQ-9 Depression Total Score: 0 11/12/19 24 12:12 PM EDT documented as of this encounter Care Teams Director Of Construction Relationship Specialty Start Date End Date Alessandra Díaz DO [address] [place] [address] PCP - General Family Medicine 04/27/18 documented as of this encounter
--- OUTSIDE RECORDS SUMMARY | 2024-08-13 18:25 | XMS_ITS | Clinical Summary ---
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 given [facility] [place] [facility] Statement Of Adequacy: [employer] [place] [employer] Comment: Satisfactory for evaluation. Endocervical/transformation zone component present. Interpretation/Re sult: Negative for intraepithelial lesion or malignancy. [employer] [facility] [place] [facility] Criminal Judge: Anuj harrison [employer] [place] [facility] Comment: RMHOWIE Garcia(ASCP) CT screening location: [address] ??[phone] (Always Message) [facility] [place] [employer] Comment: EXPLANATORY NOTE: The Pap is a [...] HPV nRNA E6/E7 Not Detected Not Detected [employer] [facility] [place] [facility] Comment: Methodology: Offender Employment Specialist-Mediated Amplification This assay detects E6/E7 viral messenger RNA (mRNA) from 14 high-risk HPV types (16,18,31,33,35,39,45,51,52,56,58,59,66,68). Cervical sources are required for HPV testing. If a vaginal source from a patient who has had a total hysterectomy with removal of cervix was submitted, please contact the testing laboratory for alternative testing options. For additional information, please refer to http://Genterpret.Reaqua Systems/faq/UYY109o9 (This link if provided for information/ educational purposes only.) Chlamydia trachomatis RNA, TMA, Urogenital NOT DETECTED NOT DETECTED [employer] [place] [facility] Neisseria gonorrhoeae RNA, TMA, Urogenital NOT DETECTED NOT DETECTED [employer] [place] [employer] (Always Message) Que [facility] [place] [employer] Comment: The analytical performance characteristics of this assay, when used to test SurePath(TM) specimens have been determined by [employer]. The modifications have not been cleared or approved by the FDA. This assay has been validated pursuant to the CLIA regulations and is used for clinical purposes. For additional information, please refer to https://American Board of Addiction Medicine (ABAM)/faq/SCE523 (This link is being provided for information/ educational purposes only.) 09/12/2022 09/15/2022 10: 04 AM EDT Narrative [facility] - 09/17/2022 4:23 PM EDT FASTING: UNKNOWN Alessandra Díaz DO LAB PATHOLOGY ORDERABLES Fin al Result Performing Organization Address [facility]/ZIP Co de Phone Number [address], [facility] [place] [address] [employer] [place] [employer] [address] [place] [phone] * Hm Pap Smear (09/12/2022) HM Pap smear NIL HPV- Historical Provider HEALTH MAINTENANCE Final Result * Hepatitis C Antibody with Reflex to HCV, RNA, Quantitative, Real-Time PCR (05/09/2022 10:20 AM EST) Hepatitis C Antibody NON-REACT JT NON-REACT JT [employer] [facility] [place] [employer] Index 0.07 <1.00 [employer] [facility] [place] [facility] Comment: HCV antibody was non-reactive. There is no laboratory evidence of HCV infection. In most cases, no further action is required. However, if recent HCV exposure is suspected, a test for HCV RNA (test code 93436) is suggested. For additional information please refer to http://education.[employer] Systems/faq/BBR90w5 (This link is being provided for informational/ educational purposes only.) 05/09/2022 10:2 0 AM EST 05/09/2022 10:21 AM EST Narrative [facility] - 05/12/2022 2:09 PM EST FASTING:NO FASTING: NO Alessandra Díaz DO LAB BLOOD ORDERABLES Final R esult Performing Organization Address City/[facility]/ZIP Co de Phone Number [address], [facility] [place] [address] [employer] [place] [employer] [address] [place] [address], (Nl2) [place] [address] * HIV-1/2 Antigen and Antibodies, Fourth Generation, with Reflexes (05/09/2022 10:20 AM EST) Pathologist [facility] HIV Antigen/Antibody, 4th Generation NON-REAC TIVE NON-REAC TIVE [employer] [place] [employer] Comment: HIV-1 antigen and HIV-1/HIV-2 antibodies were [...] ?? For additional information please refer to http://education.Re[employer] Systems/faq/QMA721 (This link is being provided for informational/ educational purposes only.) The performance of this assay has not been clinically validated in patients less than 2 years old. 05/09/2022 10:2 0 AM EST 05/09/2022 10:21 AM EST Narrative [facility] - 05/12/2022 2:09 PM EST FASTING:NO FASTING: NO Alessandra Díaz DO LAB BLOOD ORDERABLES Final R esult [facility] [address], [place] [address] [employer] [place] [employer] [address] , (Nl2) [place] [address] * (ABNORMAL) Lipid Panel, Standard (05/09/2022 10:20 AM EST) [facility] Cholesterol, Total 97 <200 mg/dL [employer] [place] [employer] HDL Cholesterol 41(L) > OR = 50 mg/dL [employer] [place] [employer] Triglycerides 48 <150 mg/dL [employer] [facility] [place] [facility] LDL Cholesterol 42 mg/dL (calc) [employer] [place] [employer] Comment: Reference range: <100 Desirable range <100 mg/dL for primary prevention; ?? <70 mg/dL for patients with CHD or diabetic patients with > or = 2 CHD risk factors. LDL-C is now calculated using the Kevin calculation, which is a validated novel method providing better accuracy than the Friedewald equation in the estimation of LDL-C. Albert SS et al. EVON. 2013;310(19): 0294-9078 (http://education.Post.Bid.Ship/faq/AIO600) Chol/HDLC Ratio 2.4 <5.0 (calc) [facility] Non-HDL Cholesterol 56 <130 mg/dL (calc) [facility] Comment: For patients with diabetes plus 1 major ASCVD risk factor, treating to a non-HDL-C goal of <100 mg/dL (LDL-C of <70 mg/dL) is considered a therapeutic option. 05/09/2022 10:2 0 AM EST 05/09/2022 10:21 AM EST Narrative [facility] - 05/12/2022 2:09 PM EST FASTING:NO FASTING: NO Alessandra Díaz DO LAB BLOOD ORDERABLES Final R esult [facility] [address], [place] [address] [employer] [place] [employer] [address] [facility], (Nl2) [place] [address] * DIGITAL BILATERAL SCREEN 1 (09/18/2017 7:09 AM EDT) Anatomical Region Laterality Modality Breast Bilateral Mammography 09/18/2017 7:09 AM EDT Narrative 09/18/2017 7:11 AM EDT Refer to the Notes tab for result details [facility] Procedure: DIGITAL BILATERAL SCREEN 1 Procedure Note Provider, MD Margarette - 07/19/2022 Refer to the Notes tab for result details [facility] Procedure: DIGITAL BILATERAL SCREEN 1 Alessandra Díaz DO IMG BI PROCEDURES Final Resu lt from Last 3 Months or Most Recently Relevant to Health Maintenance Insurance [facility] C3 DENTAL-[facility] MEDICAID STAND ADULT [facility] C3 Care Teams Computing Consultant Relationship Specialty Start Date End Date Alessandra Díaz DO [address] [place] [phone] PCP - General Family Medicine 04/27/18
--- OUTSIDE RECORDS SUMMARY | 2024-08-13 18:25 | XMS_ITS | Encounter Summary ---
Author Organization [employer] Address [address] [facility] 7 [place] [address] Care Team Providers Care Wind Farm Engineer Name Role Phone Alessandra Díaz DO Primary Care Provider + [phone] Reason for Visit * Reason Comments Med Refill Encounter Details Date Type Department Care Team ([facility] st Contact Info) Description 06/17/2024 Refill [facility] [address] [place] [address] Alessandra Díaz DO [address] [place] [address] Social History Tobacco Use Types Packs/Day Years [...] 10:15 AM EDT Office Visit [facility] [address] [place] [address] Alessandra Díaz DO [address] [place] [address] 09/16/2024 1:30 PM EDT Office Visit [facility] ADULT DENTAL [address] [place] [address] Ricardo Downs DDS [address] [place] [address] documented as of this encounter Visit Diagnoses Not on filedocumented in this encounter Additional Health Concerns Assessment Noted Time PHQ-9 Depression Total Score: 0 11/12/19 24 12:12 PM EDT documented as of this encounter Care Teams Wind Farm Engineer Relationship Specialty Start Date End Date Alessandra Díaz DO [address] [place] [phone] PCP - General Family Medicine 04/27/18 documented as of this encounter
--- OUTSIDE RECORDS SUMMARY | 2024-08-13 18:25 | XMS_ITS | Encounter Summary ---
Author Organization [employer] [facility] Address [address] [place] [address] 7 [place] [address] Care Team Providers Care Architectural Manager Name Role Phone Alessandra Díaz DO Primary Care Provider [phone] Encounter Details Date Type Department Care Team (Late st Contact Info) Description 04/08/2022 Telephone [facility] MEDICINE [address] [place] [phone] Alessandra Díaz DO [address] [place] [address] Social History Tobacco Use Types Packs/Day Years [...] Visit [facility] [address] [place] [address] Alessandra Díaz DO [address] [place] [address] 09/16/2024 1:30 PM EDT Office Visit [facility] ADULT DENTAL [address] [place] [address] Ricardo Downs DDS [address] [place] [address] documented as of this encounter Visit Diagnoses Not on filedocumented in this encounter Care Teams Architectural Manager Relationship Specialty Start Date End Date Alessandra Díaz DO [address] [place] [address] PCP - General Family Medicine 04/27/18 documented as of this encounter
--- OUTSIDE RECORDS SUMMARY | 2024-08-13 18:25 | XMS_ITS | Encounter Summary ---
Author Organization [employer] Address [address] [facility] 7t [place] [address] Care Team Providers Care Cook Helper Pastry Name Role Phone ArjunAlessandra Primary Care Provider + [phone] Reason for Visit * Reason Comments Med Refill Encounter Details Date Type Department Care Team ([facility] st Contact Info) Description 03/08/2024 Refill [facility] [address] [place] [address] Anuja Interiano MD [address] [place] [address] Acute atopic conjunctivitis, bilateral Social History Tobacco [...] your housing situation today? I have caterina gabino 07/14/[address] you li [...] Description 08/31/2024 10:15 AM EDT Office Visit [facility] MEDICINE [address] [place] [address] Alessandra Díaz DO [address] [place] [address] 09/16/2024 1:30 PM EDT Office Visit [facility] ADULT DENTAL [address] [place] [address] Ricardo Downs DDS [address] [place] [address] documented as of this encounter Visit Diagnoses Diagnosis Acute atopic conjunctivitis, bilateral documented in this encounter Additional Health Concerns Assessment Noted Time PHQ-9 Depression Total Score: 0 11/12/19 24 12:12 PM EDT documented as of this encounter Care Teams Cook Helper Pastry Relationship Specialty Start Date End Date Alessandra Díaz DO [address] [place] [address] PCP - General Family Medicine 04/27/18 documented as of this encounter
--- OUTSIDE RECORDS SUMMARY | 2024-08-13 18:25 | XMS_ITS | Encounter Summary ---
Author Organization [employer] Address [address] [facility] 7t [place] [address] Care Team Providers Care Lead Sharepoint Developer Name Role Phone JocelynAlessandra watkins Primary Care Provider + [phone] Encounter Details Date Type Department Care Team (Late st Contact Info) Description 08/13/2024 Orders Only GENERIC EXTERNAL DATA DEPARTMENT Provider, Generic External Data Social History Tobacco Use Types Packs/Day Years [...] Description 08/31/2024 10:15 AM EDT Office Visit [facility] [address] [place] [address] Alessandra Díaz DO [address] [place] [address] 09/16/2024 1:30 PM EDT Office Visit [facility] ADULT DENTAL [address] [place] [address] Ricardo Donws DDS [address] [place] [address] Pending Results Name Type Priority Associated Diagnoses Date /Time Comprehensive Metabolic Panel Lab Routine 08/13/2024 5:56 PM EDT documented as of this encounter Procedures Procedure Name Priority Date/Time Associated Diagnosis Comments CBC WITH AUTO DIFFERENTIAL Routine 08/13/2024 5:56 PM EDT COMPREHENSIVE METABOLIC PANEL Routine 08/13/2024 5:56 PM EDT documented in this encounter Results * (ABNORMAL) CBC auto differential (08/13/2024 5:56 PM EDT) White Blood Count 8.1 4.8 - 10.8 X10*3/uL [facility] Red Blood Count 4.11(L) 4.20 - 5.50 X10*6/uL [facility] Hemoglobin 12.3 12.0 - 16.0 g/dl [facility] Hematocrit 37.0 37.0 - 47.0 % [facility] Mean Corpuscular Volume 90.0 80.0 - 98.0 fL [facility] Mean Corpuscular Hemoglobin 29.9 27.0 - 33.0 pg [facility] Mean Corpuscular HGB Conc 33.2 31.0 - 35.0 g/dl [facility] Red Cell Distribution Width 13.3 11.0 - 16.0 % [facility] Platelet Count 195 160 - 400 X10*3/uL [facility] Mean Platelet Volume 11.8 9.4 - 12.3 fL [facility] Neutrophils Percent Auto 71.4 45 - 73 % [facility] Imm Gran Pct Auto 0.6(H) 0.0 - 0.4 % [facility] Lymphocytes Percent Auto 17.7(L) 20 - 40 % [facility] Monocytes Percent Auto 7.7 2 - 11 % [facility] Eosinophils Percent Auto 2.2 0 - 4 % [facility] Basophils Percent Auto 0.4 0 - 2 % [facility] NRBC Pct Auto 0.0 0.0 - 0.2 /100WBC [facility] Neutrophils Absolute Auto 5.8 2.0 - 8.3 x10*3/uL [facility] Imm Gran Abs Auto 0.05(H) 0.00 - 0.03 X10*3/uL [facility] Lymphocytes Absolute Auto 1.4 1.2 - 4.9 X10*3/uL [facility] Monocytes Absolute Auto 0.6 0.1 - 1.2 X10*3/uL [facility] Eosinophils Absolute Auto 0.2 0.0 - 0.4 X10*3/uL [facility] Basophils Absolute Auto 0.0 0.0 - 0.2 X10*3/uL [facility] NRBC Abs Auto 0.000 0.0 - 0.012 X10*3/uL [facility] 08/13/2024 5:56 PM EDT 08/13/2024 5:59 PM EDT us Generic External Data Provider LAB BLOOD ORDERAB LES Final Result [facility] [address] [place] [address] [phone] documented in this encounter Visit Diagnoses Not on filedocumented in this encounter Additional Health Concerns Assessment Noted Time PHQ-9 Depression Total Score: 0 11/12/19 24 12:12 PM EDT documented as of this encounter Care Teams Lead Sharepoint Developer Relationship Specialty Start Date End Date Alessadnra Díaz DO [address] [place] [address] PCP - General Family Medicine 04/27/18 documented as of this encounter
[2024-08-13 18:39] LABS: Influenza A PCR NEGATIVE (Negative); Influenza B PCR NEGATIVE (Negative); Resp Syncy Virus RNA Qual PCR NEGATIVE (Negative); SARS COV2 PCR INHOUSE NEGATIVE (Negative)
[2024-08-13 18:42] LABS: Alanine Aminotransferase 57 U/L (0-31)
[2024-08-13 19:12] LABS: B Type Natriuretic Peptide 32 pg/mL (<100)
[2024-08-13 19:56] VITALS: BP 155/88; PULSE 79; RESP 22; TEMP 36.9; O2SAT 97
[2024-08-13] MEDS: Ketorolac Tromethamine 30 MG/ML VIAL IM (20:01)
[2024-08-13 20:15] VITALS: BP 155/88; PULSE 79; RESP 22; TEMP 36.9; O2SAT 97
== END 2024-08-13 20:17 | disposition home or self-care (01) ==
PROVIDERS: Physician Assistant; Physician Assistant Medical; Emergency Provider Internal Medicine; PCP Family Medicine
DX: R05.9 Cough, unspecified (principal); R06.02 Shortness of breath; Z79.899 Other long term (current) drug therapy; Z03.818 Encounter for observation for suspected exposure to other biological agents ruled out
CPT/HCPCS: 0241U; 71046; 80053; 83880; 85025; 96372; 99284; J1885

== ENCOUNTER → 2024-08-13 17:49 | Outpatient (BNV) | payer MEDICAID, SELFPAY | PROVIDERS: Emergency Provider Internal Medicine; PCP Family Medicine; Visit Provider Radiology Diagnostic Radiology | DX: J84.9 Interstitial pulmonary disease, unspecified (principal) | CPT/HCPCS: 71046 ==

== ENCOUNTER 2024-09-08 11:25 | Outpatient (REF) | payer MEDICAID, SELFPAY ==
--- OUTSIDE RECORDS SUMMARY | 2024-09-08 12:34 | XMS_ITS | Encounter Summary ---
Author Organization [employer] Address [address] [facility] 7t [place] [address] Care Team Providers Care Inspector Mechanical Name Role Phone Alessandra Díaz DO Primary Care Provider + [phone] Encounter Details Date Type Department Care Team ([facility] st Contact Info) Description 04/03/2023 Telephone [facility] [address] [place] [address] Alessandra Díaz DO [address] [place], [place] [phone] Social History Tobacco Use Types Packs/Day Years [...] t he electric, gas, oil or water [employer] threatened to shut off services in your [...] Care Team (Late st Contact Info) Description 09/16/2024 1:30 PM EDT Office Visit [facility] ADULT DENT[facility] [address] [place], [place] [phone] Ricardo Downs DDS [address] [place] [address] documented as of this encounter Visit Diagnoses Not on filedocumented in this encounter Care Teams Inspector Mechanical Relationship Specialty Start Date End Date Alessandra Díaz DO [address] [place], [place] [phone] PCP - General Family Medicine 04/27/18 documented as of this encounter
--- OUTSIDE RECORDS SUMMARY | 2024-09-08 12:34 | XMS_ITS | Encounter Summary ---
Author Organization [employer] Address [address] [facility] 7 [place] [address] Care Team Providers Care Quarry Plug And Feather Driller Name Role Phone ArjunAlessandra Primary Care Provider + [phone] Reason for Visit * Reason Comments Med Refill Encounter Details Date Type Department Care Team ([facility] st Contact Info) Description 07/21/2024 Refill [facility] [address] [place] [address] Name, MD Grey [address] [place] [address] Social History Tobacco Use Types Packs/Day Years [...] Description 09/16/2024 1:30 PM EDT Office Visit [facility] ADULT DENT[facility] [address] [place] [address] Ricardo Downs DDS [address] [place] [address] documented as of this encounter Visit Diagnoses Not on filedocumented in this encounter Additional Health Concerns Assessment Noted Time PHQ-9 Depression Total Score: 0 11/12/19 24 12:12 PM EDT documented as of this encounter Care Teams Quarry Plug And Feather Driller Relationship Specialty Start Date End Date Alessandra Díaz DO [address] [place] [address] PCP - General Family Medicine 04/27/18 documented as of this encounter
--- OUTSIDE RECORDS SUMMARY | 2024-09-08 12:34 | XMS_ITS ---
Author Organization [employer] Address [address] [place] [address] 7 [place] [address] Care Team Providers Care Major Assembly Inspector Name Role Phone Alessandra Díaz DO Primary Care Provider [phone] CM Complex Status:Outreach In Progress (Enrolling) Start date:08/16/2024 Enrollment reason:ADT Feed Overview ED- [place] [facility] [place]. Case Team Name Relationship Phone Ruben Zhao RN(Responsible Staff) Registered Gavin ley [phone] Continued Care and Services Coordination
--- OUTSIDE RECORDS SUMMARY | 2024-09-08 12:34 | XMS_ITS | Encounter Summary ---
Author Organization [employer] Address [address] [facility] 7t [place] [address] Care Team Providers Care Collection Coordinator Name Role Phone Arjun Alessandra Primary Care Provider + [phone] Reason for Visit * Reason Comments Med Refill Encounter Details Date Type Department Care Team (Late st Contact Info) Description 03/08/2024 Refill [facility] [address] [place] [address] Anuja Interiano MD [address] [place] [address] Acute atopic conjunctivitis, bilateral Social History Tobacco [...] Description 09/16/2024 1:30 PM EDT Office Visit [facility] [address] [place] [address] Ricardo Downs DDS [address] [place] [address] documented as of this encounter Visit Diagnoses Diagnosis Acute atopic conjunctivitis, bilateral documented in this encounter Additional Health Concerns Assessment Noted Time PHQ-9 Depression Total Score: 0 11/12/19 24 12:12 PM EDT documented as of this encounter Care Teams Collection Coordinator Relationship Specialty Start Date End Date Alessandra Díaz DO [address] [place] [address] PCP - General Family Medicine 04/27/18 documented as of this encounter
--- OUTSIDE RECORDS SUMMARY | 2024-09-08 12:34 | XMS_ITS ---
Author Organization [employer] Address [address] [place] [address] Care Team Providers Care Blood Donor Recruiter Supervisor Name Role Phone Alessandra Díaz DO Primary Care Provider [phone] CHW Complex Status:Enrolled (Active) Start date:08/16/2024 Enrollment date:08/16/2024 Enrollment reason:ADT Feed Overview ED- [place] [facility]. Case Team Name Relationship Phone Shea Galeana(Responsible Staff) [phone] Continued Care and Services Coordination
--- OUTSIDE RECORDS SUMMARY | 2024-09-08 12:34 | XMS_ITS | Encounter Summary ---
Author Organization [employer] Address 75 [facility] 7 [place] [address] Care Team Providers Care Accountancy Professor Name Role Phone Alessandra Díaz DO Primary Care Provider + [phone] Reason for Visit * Reason Comments Med Refill Encounter Details Date Type Department Care Team ([facility] st Contact Info) Description 06/17/2024 Refill [facility] MED[facility]INE [address] [place] [address] Alessandra Díaz DO [address] [place], [place] [phone] Social History Tobacco Use Types Packs/Day Years [...] Description 09/16/2024 1:30 PM EDT Office Visit [facility] ADULT DENTAL [address] [place] [address] Ricardo Downs DDS [address] [place] [address] documented as of this encounter Visit Diagnoses Not on filedocumented in this encounter Additional Health Concerns Assessment Noted Time PHQ-9 Depression Total Score: 0 11/12/19 24 12:12 PM EDT documented as of this encounter Care Teams Accountancy Professor Relationship Specialty Start Date End Date Alessandra Díaz DO [address] [place] [address] PCP - General Family Medicine 04/27/18 documented as of this encounter
--- OUTSIDE RECORDS SUMMARY | 2024-09-08 12:34 | XMS_ITS | Encounter Summary ---
Author Organization [employer] Address 75 [facility] 7t [place] [address] Care Team Providers Care Detonator Assembler Name Role Phone Alessandra Díaz DO Primary Care Provider + [phone] Encounter Details Date Type Department Care Team ([facility] st Contact Info) Description 04/29/2024 Telephone [facility] MEDICINE [address] [place], [place] [phone] Alessandra Díaz DO [address] [place], [place] [phone] Social History Tobacco Use Types Packs/Day Years [...] availability and will like to be seen [phone] documented in this encounter Plan of Treatment Upcoming Encounters Date Type Department Care Team (Late st Contact Info) Description 09/16/2024 1:30 PM EDT Office Visit [facility] ADULT DENTAL [address] [place] [address] Ricardo Downs DDS [address] [place] [address] documented as of this encounter Visit Diagnoses Not on filedocumented in this encounter Additional Health Concerns Assessment Noted Time PHQ-9 Depression Total Score: 0 11/12/19 24 12:12 PM EDT documented as of this encounter Care Teams Detonator Assembler Relationship Specialty Start Date End Date Alessandra Díaz DO [address] [place] [address] PCP - General Family Medicine 04/27/18 documented as of this encounter
--- OUTSIDE RECORDS SUMMARY | 2024-09-08 12:34 | XMS_ITS | Encounter Summary ---
Author Organization [employer] Address [address] [facility] 7 [place] [address] Care Team Providers Care Sign Shop Supervisor Name Role Phone Alessandra Díaz DO Primary Care Provider + [phone] Reason for Visit * Reason Comments Med Refill Encounter Details Date Type Department Care Team (Late st Contact Info) Description 08/30/2024 Refill [facility] MEDICINE [address] [place] [address] Alessandra Díaz DO [address] [place], [place] [phone] Social History Tobacco Use Types Packs/Day Years Used Date Smoking Tobacco: Never Passive Smoke Exposure: Never Smokeless Tobacco: Current Alcohol Use Standard Drinks/Week Comments Never 0 (1 standard drink = 0.6 oz pur e alcohol) Depression Answer Date Recorded Patient Health Questionnaire-9 Score 3 08/31/2024 Patient Health Questionnaire-9 Score 3 08/31/2024 Last PHQ-9: Questionnaire Data Not on file 0 08/31/2024 Housing Stability Answer Date Recorded What is your housing situation today? I have caterina lloyd 07/14/[address] you li ve. Do you have problems with any of the following? None of the above 07/14/2023 Food Insecurity Answer Date Recorded Within the past 12 months, y ou worried that your food would run out before you got money to buy more: Sometimes True 2024 Within the past 12 months,th e food you bought just didn't last and you didn't have enough money to get more: Sometimes True 08/16/2024 Transportation Answer Date Recorded In the past [...] Answer Date Recorded Patient Health Questionnaire-2 Score 2 08/31/2024 Internet Access Answer Date Recorded Internet Access Q1 Yes 03/18/2024 Internet Access Q2 Not on file 03/18/2024 Comments Unknown Sex and Gender Information Value Date Recorded Sex Assigned at Female 02/24/2022 10:15 AM EDT Legal Sex Female 10:15 AM EDT Gender Identity Female 02/24/2022 10:15 AM EDT Sexual Orientation Straight 02/24/2022 10 :15 AM EDT documented as of this encounter Functional Status * Over the past 2 weeks, how often have you been bothered by any of the following problems? Question Answer Date of Assessment Author Patient Health Questionnaire -2 Score 2 08/31/2024 1:28 PM EDT Jana Graham MA * Little interest or pleasure in doing things Answer Date of Assessment Author Several days 08/31/2024 1:28 PM EDT Hazel Graham MA * Feeling down, depressed, or hopeless Answer Date of Assessment Author Several days 08/31/2024 1:28 PM EDT Hazel Graham MA * Trouble falling or staying asleep, or sleeping too much Answer Date of Assessment Author Not at all 08/31/2024 1:28 PM EDT Hazel Graham MA * Feeling tired or having little energy Answer Date of Assessment Author Not at all 08/31/2024 1:28 PM EDT Hazel Graham MA * Poor appetite or overeating Answer Date of Assessment Author Several days 08/31/2024 1:28 PM EDT Hazel Graham MA * Feeling bad about yourself - or that you are a failure or have let yourself or your family down Answer Date of Assessment Author Not at all 08/31/2024 1:28 PM EDT Hazel Graham MA * Trouble concentrating on things, such as reading the newspaper or watching television Answer Date of Assessment Author Not at all 08/31/2024 1:28 PM [facility] Hazel Graham MA * Moving or speaking so slowly that other people could have noticed? Or the opposite - being so fidgety or restless that you have been moving around a lot more than usual. Answer Date of Assessment Author Not at all 08/31/2024 1:28 PM [facility] Hazel Graham MA * Thoughts that you would be better off or hurting yourself in some way Answer Date of Assessment Author Not at all 08/31/2024 1:28 PM [facility] Hazel Graham MA * Patient Health Questionnaire-9 Score Answer Date of Assessment Author 3 08/31/2024 1:28 PM [facility]INT Hazel Graham MA * How difficult have these problems made it for you to do your work, take care of things at home, or get along with other people? Answer Date of Assessment Author Not difficult at all 08/31/2024 1:28 PM EDT Jana Solo MA * Over the last 2 weeks, how often have you been bothered by any of the following problems? Question Answer Date of Assessment Author Feeling nervous, anxious, or on edge 3 08/31/2024 1:29 PM EDT Jana Graham MA Not being able to stop or co ntrol worrying 0 08/31/2024 1:29 PM VIPINT Jana Graham MA Worrying too much about diff erent things 0 08/31/2024 1:29 PM EDT Jana Graham MA Trouble relaxing 0 08/31/2024 1:29 PM EDT Jana Ocampo MA Being so restless that it is hard to sit still 0 08/31/2024 1:29 PM VIPINT Jana Graham MA Becoming easily annoyed or irritable 1 08/31/2024 1:29 PM VIPINT Jana Graham MA Feeling afraid as if somethi ng awful might happen 0 08/31/2024 1:29 PM EDT Jana Graham MA ROC-7 Total Score 4 08/31/2024 1:29 PM EDT Jana Graham MA documented as of this encounter Miscellaneous Notes * Telephone Encounter - Alessandra Díaz DO - 08/31/2024 3:28 PM EDT New rx sent at visit today documented in this encounter Plan of Treatment Upcoming Encounters Date Type Department Care Team (Late st Contact Info) Description 09/16/2024 1:30 PM EDT Office Visit [facility] ADULT DENTAL [address] [place] [address] Ricardo Downs DDS [address] [place] [address] documented as of this encounter Visit Diagnoses Not on filedocumented in this encounter Additional Health Concerns Assessment Noted Time PHQ-9 Depression Total Score: 0 11/12/19 24 12:12 PM EDT documented as of this encounter Care Teams Sign Shop Supervisor Relationship Specialty Start Date End Date Alessandra Díaz DO [address] [place] [address] PCP - General Family Medicine 04/27/18 documented as of this encounter
--- OUTSIDE RECORDS SUMMARY | 2024-09-08 12:34 | XMS_ITS | Encounter Summary ---
Author Organization [email or web address] Address [address] [place] [address] [address] Care Team Providers Care Bronzer Name Role Phone Alessandra Díaz DO Primary Care Provider [phone] Encounter Details Date Type Department Care Team (Late st Contact Info) Description 04/08/2022 Telephone [facility] MEDICINE [address] [place] [address] Alessandra Díaz DO [address] [place] [address] Social History Tobacco Use Types Packs/Day Years [...] Description 09/16/2024 1:30 PM EDT Office Visit [facility] ADULT DENTAL [address] [place] [address] Ricardo Downs DDS [address] [place] [address] documented as of this encounter Visit Diagnoses Not on filedocumented in this encounter Care Teams Bronzer Relationship Specialty Start Date End Date Alessandra Díaz DO [address] [place] [address] PCP - General Family Medicine 04/27/18 documented as of this encounter
--- OUTSIDE RECORDS SUMMARY | 2024-09-08 12:34 | XMS_ITS | Encounter Summary ---
Author Organization [employer] Address 75 [facility] 7 [place] [address] Care Team Providers Care Telecommunicator Name Role Phone Alessandra Díaz DO Primary Care Provider + [phone] Reason for Visit * Reason Onset Date Comments Durable Medical Equipment 09/07/2024 Encounter Details Date Type Department Care Team (Late st Contact Info) Description 09/07/2024 Telephone [facility] MEDICINE [address] [place] [address] Alessandra Díaz DO [address] [place] [address] Durable Medical Equipment Social History Tobacco Use [...] encounter Miscellaneous Notes * Telephone Encounter - Shae Glez - 09/07/2024 12:35 PM EDT Tc from pt requesting status on portable toilet discussed during office visit on 08/31/24. documented in this encounter Plan of Treatment Upcoming Encounters Date Type Department Care Team (Late st Contact Info) Description 09/16/2024 1:30 PM EDT Office Visit [facility] ADULT DENTAL [address] [place] [address] Ricardo Downs DDS [address] [place] [address] documented as of this encounter Visit Diagnoses Not on filedocumented in this encounter Additional Health Concerns Assessment Noted Time PHQ-9 Depression Total Score: 3 09/01/19 25 1:28 PM EDT documented as of this encounter Care Teams Telecommunicator Relationship Specialty Start Date End Date Alessandra Díaz DO [address] [place] [address] PCP - General Family Medicine 04/27/18 documented as of this encounter
--- OUTSIDE RECORDS SUMMARY | 2024-09-08 12:34 | XMS_ITS | Encounter Summary ---
Author Organization [employer] Address [address] [facility] 7t [place] [address] Care Team Providers Care Enterprise Integration Architect Name Role Phone Alessandra Díaz DO Primary Care Provider + [phone] Encounter Details Date Type Department Care Team ([facility] st Contact Info) Description 04/12/2024 Telephone [facility] MEDICINE [address] [place], [place] [phone] Alessandra Díaz DO [address] [place], [place] [phone] Social History Tobacco Use Types Packs/Day Years [...] Description 09/16/2024 1:30 PM EDT Office Visit [facility] ADULT DENTAL [address] [place] [address] Ricardo Downs DDS [address] [place] [address] documented as of this encounter Visit Diagnoses Not on filedocumented in this encounter Additional Health Concerns Assessment Noted Time PHQ-9 Depression Total Score: 0 11/12/19 24 12:12 PM EDT documented as of this encounter Care Teams Enterprise Integration Architect Relationship Specialty Start Date End Date Alessandra Díaz DO [address] [place] [address] PCP - General Family Medicine 04/27/18 documented as of this encounter
--- OUTSIDE RECORDS SUMMARY | 2024-09-08 12:34 | XMS_ITS | Encounter Summary ---
Author Organization [employer] Address [address] [facility] 7 [place] [address] Care Team Providers Care Process Mold Technician Name Role Phone Alessandra Díaz DO Primary Care Provider + [phone] Reason for Visit * Reason Comments Med Refill Encounter Details Date Type Department Care Team ([facility] st Contact Info) Description 08/11/2024 Refill [facility] MEDICINE [address] [place] [address] Alessandra Díaz DO [address] [place], [place] [phone] Social History Tobacco Use Types Packs/Day Years [...] Description 09/16/2024 1:30 PM EDT Office Visit [facility] ADULT DENTAL [address] [place] [address] Ricardo Downs DDS [address] [place] [address] documented as of this encounter Visit Diagnoses Not on filedocumented in this encounter Additional Health Concerns Assessment Noted Time PHQ-9 Depression Total Score: 0 11/12/19 24 12:12 PM EDT documented as of this encounter Care Teams Process Mold Technician Relationship Specialty Start Date End Date Alessandra Díaz DO [address] [place] [address] PCP - General Family Medicine 04/27/18 documented as of this encounter
--- OUTSIDE RECORDS SUMMARY | 2024-09-08 12:34 | XMS_ITS | Encounter Summary ---
Author Organization [employer] Address [address] [place] [address] 7 [place] [address] Care Team Providers Care Architecture Intern Name Role Phone Alessandra Díaz DO Primary Care Provider + [phone] Reason for Visit * Reason Onset Date Comments Appointment Request 08/25/2022 Encounter Details Date Type Department Care Team ([facility] st Contact Info) Description 08/25/2022 Telephone [facility] MEDICINE [address] [place] [address] Alessandra Díaz DO [address] [place] [address] Appointment Request Social History Tobacco Use Types [...] a PAP appt. Please contact pt at [phone] documented in this encounter Plan of Treatment Upcoming Encounters Date Type Department Care Team ([facility] st Contact Info) Description 09/16/2024 1:30 PM EDT Office Visit [facility] ADULT DENTAL [address] [place] [address] Ricardo Downs DDS [address] [place] [address] documented as of this encounter Visit Diagnoses Not on filedocumented in this encounter Care Teams Architecture Intern Relationship Specialty Start Date End Date Alessandra Díaz DO [address] [place] [address] PCP - General Family Medicine 04/27/18 documented as of this encounter
--- OUTSIDE RECORDS SUMMARY | 2024-09-08 12:35 | XMS_ITS | Clinical Summary ---
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 [facility], [facility], [place] [address] [employer] 200 [facility], ([address]) [place] [address] * HIV-1/2 Antigen and Antibodies, Fourth Generation, with Reflexes (05/09/2022 10:20 AM EST) Pathologist [facility] HIV Antigen/Antibody, 4th Generation NON-REAC TIVE NON-REAC TIVE [employer] Comment: HIV-1 antigen and HIV-1/HIV-2 antibodies were [...] ?? For additional information please refer to http://Eyestorm.MOGL/faq/GOZ907 (This link is being provided for informational/ educational purposes only.) The performance of this assay has not been clinically validated in patients less than 2 years old. 05/09/2022 10:2 0 AM EST 05/09/2022 10:21 AM EST Narrative [facility] - 05/12/2022 2:09 PM EST FASTING:NO FASTING: NO us Alessandra Díaz DO LAB BLOOD ORDERABLES Final R esult [facility] [address], [place] [address] [employer] 200 [facility], ([address]) [place] [address] * (ABNORMAL) Lipid Panel, Standard (05/09/2022 10:20 AM EST) [facility] Signature Cholesterol, Total 97 <200 mg/dL [employer] HDL Cholesterol 41(L) > OR = 50 mg/dL [employer] Triglycerides 48 <150 mg/dL [employer] LDL Cholesterol 42 mg/dL (calc) [employer] Comment: Reference range: <100 Desirable range <100 mg/dL for primary prevention; ?? <70 mg/dL for patients with CHD or diabetic patients with > or = 2 CHD risk factors. LDL-C is now calculated using the Albert-Mercedez calculation, which is a validated novel method providing better accuracy than the Friedewald equation in the estimation of LDL-C. Albert ZELAYA et al. EVON. 2013;310(19): 6767-9158 (http://education.Learneroo/faq/HBP092) Chol/HDLC Ratio 2.4 <5.0 (calc) [facility] Non-HDL Cholesterol 56 <130 mg/dL (calc) [facility] Comment: For patients with diabetes plus 1 major ASCVD risk factor, treating to a non-HDL-C goal of <100 mg/dL (LDL-C of <70 mg/dL) is considered a therapeutic option. 05/09/2022 10:2 0 AM EST 05/09/2022 10:21 AM EST Narrative [facility] - 05/12/2022 2:09 PM EST FASTING:NO FASTING: NO Alessandra Díaz DO LAB BLOOD ORDERABLES Final R esult [facility] [address] [facility], 3rd Fl, [place] [address] [facility] [employer] [facility] [address] [facility], ([address]) [place] [address] * DIGITAL BILATERAL SCREEN 1 (09/18/2017 7:09 [...] Most Recently Relevant to Health Maintenance Insurance [facility] C3 DENTAL-[facility] MEDICAID STAND ADULT [facility] C3 Care Teams Plant Director Relationship Specialty Start Date End Date Alessandra Díaz DO [address] [place] [address] PCP - General Family Medicine 04/27/18
[2024-09-08 13:37] LABS: Hematocrit 38.2 % (37.0-47.0); Hemoglobin 12.2 g/dl (12.0-16.0); Mean Corpuscular HGB Conc 31.9 g/dl (31.0-35.0); Mean Corpuscular Hemoglobin 29.3 pg (27.0-33.0); Mean Corpuscular Volume 91.6 fL (80.0-98.0); Mean Platelet Volume 12.2 fL (9.4-12.3); Platelet Count 233 X10*3/uL (160-400); Red Blood Count 4.17 X10*6/uL (4.20-5.50); Red Cell Distribution Width 13.5 % (11.0-16.0); White Blood Count 7.4 X10*3/uL (4.8-10.8)
[2024-09-08 13:51] LABS: Estimated Average Glucose 180 mg/dL; Hemoglobin A1c % 7.9 % (<6.0)
[2024-09-08 14:02] LABS: Alanine Aminotransferase 50 U/L (0-31); Albumin Level 4.2 g/dL (3.5-5.0); Alkaline Phosphatase 53 U/L (39-117); Anion Gap 12 (12-20); Aspartate Amino Transferase 38 U/L (5-31); Bilirubin Direct 0.2 mg/dL (0.0-0.5); Bilirubin Total 0.5 mg/dL (0.0-1.0); Blood Urea Nitrogen 11 mg/dL (9-16); Calcium 9.6 mg/dL (8.4-10.2); Carbon Dioxide 30 mmol/L (22-29); Chloride 102 mmol/L (96-108); Cholesterol 133 mg/dL (<200); Estimated Glomerular Filt Rate > 60; Glucose Random 150 mg/dL (60-115); HDL Cholesterol 43 mg/dL (>40); LDL Cholesterol Calculated 76 mg/dL (<100); Potassium 3.8 mmol/L (3.3-5.1); Sodium 140 mmol/L (135-145); Total Protein 7.7 g/dL (6.5-8.0); Triglycerides 71 mg/dL (<150)
[2024-09-08 14:08] LABS: Hepatitis A Antibody IgG Nonreactive (Nonreactive); ~Hepatitis A Antibody IgG 0.81 S/CO (0.00-0.99)
[2024-09-08 14:15] LABS: HBS Num1 0.38 mIU/mL (0-7.99); HBc Num1 0.22 S/CO (0.00-0.79); HBsAGNum1 0.47 S/CO (0.00-0.99); HIV AB/AG Nonreactive (Nonreactive); HIV Num 1 0.05 S/CO (0.00-0.99); Hepatitis B Core Antibody Nonreactive (Nonreactive); Hepatitis B Surface Antigen Negative (Negative); ~HepC Num1 0.11 S/CO (0.00-0.79); ~Hepatitis B Surface Antibody NONREACTIVE (Nonreactive); ~Hepatitis C Antibody Nonreactive (Nonreactive)
[2024-09-08 14:19] LABS: Creatinine Urine 152.33 mg/dL; Microalbum/Creatinine Ratio Ur 8.5 ug/mg cr (<30)
[2024-09-08 14:23] LABS: Thyroid Stimulating Hormone 1.09 uIU/mL (0.32-4.0); Vitamin D 25-OH Total 43.3 ng/mL (>30)
[2024-09-08 15:29] LABS: CT PCR NOT DETECTED (Not Detect.); NG PCR NOT DETECTED (Not Detect.)
[2024-09-09 13:13] LABS: Alpha Fetoprotein 1.9 ng/mL
[2024-09-11 14:49] LABS: RPR Rapid Plasma Reagin NON-REACTIVE (NON-REACTIVE)
== END 2024-09-08 11:26 | disposition home or self-care (01) ==
LOC: HO.HHCL 11:25
PROVIDERS: Visit Provider Family Medicine
DX: Z00.00 Encounter for general adult medical examination without abnormal findings (principal); N93.9 Abnormal uterine and vaginal bleeding, unspecified; F41.9 Anxiety disorder, unspecified; K76.0 Fatty (change of) liver, not elsewhere classified; R06.09 Other forms of dyspnea; G47.33 Obstructive sleep apnea (adult) (pediatric); J30.2 Other seasonal allergic rhinitis; H04.203 Unspecified epiphora, bilateral; R21 Rash and other nonspecific skin eruption; Z68.43 Body mass index [BMI] 50.0-59.9, adult; Z12.11 Encounter for screening for malignant neoplasm of colon; Z23 Encounter for immunization
CPT/HCPCS: 80048; 80061; 80076; 82043; 82105; 82306; 82570; 83036; 84439; 84443; 85027; 86592; 86704; 86706; 86708; 86803; 87340; 87389; 87491; 87591

== ENCOUNTER 2024-11-11 13:32 | Outpatient (AMB) | payer MEDICAID, SELFPAY ==
[2024-11-11 13:34] VITALS: BP 152/96; PULSE 79; O2SAT 96; BMI 57.4
--- NOTE | 2024-11-11 13:34 | MHC.OFFVIS ---
Vital Signs 11/11/24 13:34 Height 5 ft 2 in Weight 314 lb BMI 57.4 BP 152/96 H Blood Pressure Location Lt brachial Position Sitting Pulse 79 Pulse Source Pulse Oximeter Pulse Oximetry (%) 96 Oxygen Delivery Method Nasal Cannula Oxygen Flow Rate 2 Intake Visit Reasons: Asthma Allergies No Known Allergies Allergy (Unknown, Verified 11/11/24 13:41) HPI HPI Asthma: Details: 49-year-old lady, nonsmoker, with underlying obesity, now followed for mild obstructive sleep apnea on supplemental oxygen dependency.? Patient was started on APAP therapy, however she has been having difficulties with her fullface mask which appears to be size larger than she needs. She is also interested in portable oxygen concentrator evaluation. [facility] Surgical History Hx of section History of cholecystectomy Family History Father No problems noted. Mother Arthritis Social History Household Members: Children Household Members Other:: Two children, recently Housing: Apartment Do you presently have visiting nurse or other home services: No Unable to assess alcohol history related to: Unknown Patient Tobacco Use Status: Never used Tobacco Second Hand Smoke Exposure: No service: No Current occupational status: disabled Review of Systems Const Denies daytime sleepiness, Denies excessive sweating, Denies fatigue, Denies fever(s), Denies lethargy, Denies malaise, Denies night sweats, Denies snoring and Denies weight loss Eyes Denies blurry vision and Denies itchy eyes ENT Denies nasal congestion, Denies post nasal drip, Denies sinus pain, Denies sinus pressure and Denies other ( Thrush) Card Denies chest pain, Denies pedal edema, Denies dyspnea, Denies orthopnea and Denies paroxysmal nocturnal dyspnea Resp Denies cough, Denies hemoptysis, Denies excessive phlegm production, Denies dyspnea, Denies snoring and Denies wheezing GI Denies abdominal pain and Denies heartburn Musc Denies myalgias, Denies arthralgias and Denies joint swelling Skin/Breast Denies rash Neuro Denies memory loss and Denies seizure-like activity Psych Denies abnormal sleep pattern, Denies anxiety and Denies memory loss Endo Denies excessive sweating, Denies fatigue and Denies heat intolerance Pablo/Lymph Denies easy bruising Aller/Immun Denies itchy eyes, Denies seasonal rhinorrhea and Denies wheezing Physical Exam Vital Signs: Last Vital Signs Pulse 79 11/11/24 13:34 BP 152/96 H 11/11/24 13:34 Pulse Ox 96 11/11/24 13:34 Oxygen Delivery Method Nasal Cannula 11/11/24 13:34 Oxygen Flow Rate 2 11/11/24 13:34 BMI result Body Mass Index 57.4 Const General: no acute distress and alert Nutritional Appearance: obese Orientation/consciousness: Other orientation findings ( oriented) HEENT Head: Yes atraumatic Eyes General: appearance normal, both eyes and all related structures Sclerae: sclerae normal EOM: EOMs intact bilaterally Neck Neck: Yes supple Lymphatic: no lymphadenopathy noted Resp Effort & Inspection: normal respiratory effort and no use of accessory muscles Auscultation: clear to auscultation bilaterally Cardio Rate: regular rate Rhythm: regular rhythm Heart sounds: no gallops, no murmurs and no rubs Skin General skin exam: other ( warm) Extrem General: No clubbing, No cyanosis and No edema Office Procedures 6 Minute Walk Time:: 14:00 SPO2 % at rest: 96 Pulse at rest: 82 SPO2 % during excercise: 88 Pulse during excercise: 106 SPO2 % after excercise: 94 Pulse after excercise: 98 Distance in yards walked: 200 Mary Anne Score: 4 Performance Observations:: Sahra walked on level ground without assistance, she walked on room air for 2 mins before her SPO2 decreased to 88%. O2 started at pulsed setting 2 after a brief rest her SPO2 recovered to 93%. She maintained her SPO2 92-93% on pulsed O2 setting 2. 17461 - 6 Minute Walk Assessment & Plan Assessment & Plan (1) LETICIA (obstructive sleep apnea): Code(s): G47.33 - Obstructive sleep apnea (adult) (pediatric) Category: Medical Plan: Suboptimal control as patient fullface mask is not fitting well, [facility] (2) Chronic hypoxemic respiratory failure: Code(s): J96.11 - Chronic respiratory failure with hypoxia Category: Medical Plan: Portable oxygen concentrator/6 minute walk test performed, patient can utilize portable oxygen concentrator at setting 2 to maintain normal oximetry with exertion. POC order placed with [facility]. Orders: Orders AMB 6 minute walk Today R06.02 - Shortness of breath Coding Level of Care Code Est Pt Level 4 (43543) Diagnoses LETICIA (obstructive sleep apnea) G47.33 Chronic hypoxemic respiratory failure J96.11 CPT Codes Coding ([id number])
[2024-11-11 14:45] VITALS: PULSE 82; O2SAT 96
== END 2024-11-11 14:10 | disposition home or self-care (01) ==
LOC: HO.HPS 13:33
PROVIDERS: PCP Family Medicine; Visit Provider Internal Medicine Pulmonary Disease
DX: G47.33 Obstructive sleep apnea (adult) (pediatric) (principal); J96.11 Chronic respiratory failure with hypoxia
CPT/HCPCS: 94618; 99214

== ENCOUNTER → 2024-11-11 13:32 | Outpatient (BNVA) | payer MEDICAID, SELFPAY | PROVIDERS: PCP Family Medicine; Visit Provider Internal Medicine Pulmonary Disease | DX: G47.33 Obstructive sleep apnea (adult) (pediatric) (principal); J96.11 Chronic respiratory failure with hypoxia | CPT/HCPCS: 94618; 99212 ==

== ENCOUNTER 2025-01-31 14:26 | Outpatient (AMB) | payer MEDICAID, SELFPAY ==
[2025-01-31 14:28] VITALS: BP 138/67; PULSE 78; O2SAT 97; BMI 58.2
--- NOTE | 2025-01-31 14:28 | A.OFFVIS_ITS ---
Vital Signs 01/31/25 14:28 Height 5 ft 2 in Weight 318 lb BMI 58.2 BP 138/67 Blood Pressure Location Lt brachial Position Sitting Pulse 78 Pulse Source Pulse Oximeter Pulse Oximetry (%) 97 Oxygen Delivery Method Nasal Cannula Oxygen Flow Rate 2 Intake Visit Reasons: asthma Allergies No Known Allergies Allergy (Unknown, Verified 11/11/24 13:41) HPI HPI asthma: Details: 49-year-old lady, nonsmoker, with underlying obesity, now followed for mild obstructive sleep apnea with supplemental oxygen dependency.? Patient been continue to try to get used to using APAP. She was not able to receive her portable oxygen concentrator yet. [facility] Surgical History Hx of section History of cholecystectomy Family History Father No problems noted. Mother Arthritis Social History Household Members: Children Household Members Other:: Two children, recently Housing: Apartment Do you presently have visiting nurse or other home services: No Unable to assess alcohol history related to: Unknown Patient Tobacco Use Status: Never used Tobacco Second Hand Smoke Exposure: No service: No Current occupational status: disabled Review of Systems Const Denies daytime sleepiness, Denies excessive sweating, Denies fatigue, Denies fever(s), Denies lethargy, Denies malaise, Denies night sweats, Denies snoring and Denies weight loss Eyes Denies blurry vision and Denies itchy eyes ENT Denies nasal congestion, Denies post nasal drip, Denies sinus pain, Denies sinus pressure and Denies other ( Thrush) Card Denies chest pain, Denies pedal edema, Denies dyspnea, Reports dyspnea on exertion, Denies orthopnea and Denies paroxysmal nocturnal dyspnea Resp Denies cough, Denies hemoptysis, Denies excessive phlegm production, Denies dyspnea, Reports dyspnea on exertion, Denies snoring and Denies wheezing GI Denies abdominal pain and Denies heartburn Musc Denies myalgias, Denies arthralgias and Denies joint swelling Skin/Breast Denies rash Neuro Denies memory loss and Denies seizure-like activity Psych Denies abnormal sleep pattern, Denies anxiety and Denies memory loss Endo Denies excessive sweating, Denies fatigue and Denies heat intolerance Pablo/Lymph Denies easy bruising Aller/Immun Denies itchy eyes, Denies seasonal rhinorrhea and Denies wheezing Physical Exam Vital Signs: Last Vital Signs Pulse 78 01/31/25 14:28 BP 138/67 01/31/25 14:28 Pulse Ox 97 01/31/25 14:28 Oxygen Delivery Method Nasal Cannula 01/31/25 14:28 Oxygen Flow Rate 2 01/31/25 14:28 BMI result Body Mass Index 58.2 Const General: no acute distress and alert Nutritional Appearance: obese Orientation/consciousness: Other orientation findings ( oriented) HEENT Head: Yes atraumatic Eyes General: appearance normal, both eyes and all related structures Sclerae: sclerae normal EOM: EOMs intact bilaterally Neck Neck: Yes supple Lymphatic: no lymphadenopathy noted Resp Effort & Inspection: normal respiratory effort and no use of accessory muscles Auscultation: clear to auscultation bilaterally Cardio Rate: regular rate Rhythm: regular rhythm Heart sounds: no gallops, no murmurs and no rubs Skin General skin exam: other ( warm) Extrem General: No clubbing, No cyanosis and No edema Assessment & Plan Assessment & Plan (1) LETICIA (obstructive sleep apnea): Code(s): G47.33 - Obstructive sleep apnea (adult) (pediatric) Category: Medical Plan: Suboptimally controlled as patient still has difficulty adjusting to her CPAP therapy. Continue CPAP therapy. (2) Chronic hypoxemic respiratory failure: Code(s): J96.11 - Chronic respiratory failure with hypoxia Category: Medical Plan: Continue supplemental oxygen to maintain O2 saturation above 88%. Coding Level of Care Code Est Pt Level 4 (33977) Diagnoses LETICIA (obstructive sleep apnea) G47.33 Chronic hypoxemic respiratory failure J96.11
--- OUTSIDE RECORDS SUMMARY | 2025-01-31 17:47 | XMS_ITS | Encounter Summary ---
Author Organization [employer] Address [address] [facility] 7t [place] [address] Care Team Providers Care Stage Hand Name Role Phone Alessandra Díaz DO Primary Care Provider [phone] Reason for Visit * Reason Comments Med Refill Encounter Details Date Type Department Care Team (Late st Contact Info) Description 08/11/2024 Refill [facility] MEDICINE [address] [place], [place] [phone] Alessandra Díaz DO [address] [place], [place] [phone] Social History Tobacco Use Types Packs/Day Years [...] Care Team (Late st Contact Info) Description 02/03/2025 10:30 AM EDT Office Visit [facility] MEDICINE [address] [place] [address] Alessandra Díaz DO [address] [place] [address] 05/17/2025 2:30 PM EST Office Visit [facility] OPTOMETRY [address] [place] [address] Christina Geller, OD [address] [place] [address] documented as of this encounter Visit Diagnoses Not on filedocumented in this encounter Additional Health Concerns Assessment Noted Time PHQ-9 Depression Total Score: 0 11/12/19 24 12:12 PM EDT documented as of this encounter Care Teams Stage Hand Relationship Specialty Start Date End Date Alessandra Díaz DO [address] [place] [address] PCP - General Family Medicine 04/27/18 documented as of this encounter
--- OUTSIDE RECORDS SUMMARY | 2025-01-31 17:47 | XMS_ITS | Encounter Summary ---
Author Organization [employer] Address [address] [facility] 7t [place] [address] Care Team Providers Care Outsole Beveler Name Role Phone Alessandra Díaz DO Primary Care Provider [phone]- [phone] Encounter Details Date Type Department Care Team ([facility] st Contact Info) Description 04/12/2024 Telephone [facility] MEDICINE [address] [place], [place] [phone] Alessandra Díaz DO [address] [place], [place] [phone] Social History Tobacco Use Types Packs/Day Years [...] Description 02/03/2025 10:30 AM EDT Office Visit [facility] MEDICINE [address] [place] [address] Alessandra Díaz DO [address] [place] [address] 05/17/2025 2:30 PM EST Office Visit [facility] OPTOMETRY [address] [place] [address] Tarka, Christina, OD [address] [place] [address] documented as of this encounter Visit Diagnoses Not on filedocumented in this encounter Additional Health Concerns Assessment Noted Time PHQ-9 Depression Total Score: 0 11/12/19 24 12:12 PM EDT documented as of this encounter Care Teams Outsole Beveler Relationship Specialty Start Date End Date Alessandra Díaz DO [address] [place] [address] PCP - General Family Medicine 04/27/18 documented as of this encounter
--- OUTSIDE RECORDS SUMMARY | 2025-01-31 17:47 | XMS_ITS | Encounter Summary ---
Author Organization [employer] Address [address] [facility] 7t [place] [address] Care Team Providers Care [employer] Lead Name Role Phone Alessandra Díaz DO Primary Care Provider [phone] Reason for Visit * Reason Comments Med Refill Encounter Details Date Type Department Care Team (Late st Contact Info) Description 08/30/2024 Refill [facility] [address] [place], [place] [phone] Alessandra Díaz DO [address] [place], [place] [phone] Social History Tobacco Use Types Packs/Day Years [...] Author Several days 08/31/2024 1:28 PM EDT Haezl Graham MA * Feeling down, depressed, or [...] 1:28 PM EDT Hazel Graham [place] * Moving or speaking so slowly that other people could have noticed? Or the opposite - being so fidgety or restless that you have been moving around a lot more than usual. Answer Date of Assessment Author Not at all 08/31/2024 1:28 PM EDT Hazel Graham [place] * Thoughts that you would be better off or hurting yourself in some way Answer Date of Assessment Author Not at all 08/31/2024 1:28 PM VIIPNT Hazel Graham [place] * Patient Health Questionnaire-9 Score Answer Date of Assessment Author 3 08/31/2024 1:28 PM EDT Hazel Graham [place] * How difficult have [...] co ntrol worrying 0 08/31/2024 1:29 PM EDT Jana Graham MA Worrying too much about diff erent things 0 08/31/2024 1:29 PM EDT Jana Graham MA Trouble relaxing 0 08/31/2024 1:29 PM EDT Jana Ocampo MA Being so restless that it is hard to sit still 0 08/31/2024 1:29 PM EDT Jana Graham MA Becoming easily annoyed or irritable 1 08/31/2024 1:29 PM EDT Jana Graham MA Feeling afraid as if [...] Description 02/03/2025 10:30 AM EDT Office Visit [facility] [address] [place] [address] Alessandra Díaz DO [address] [place] [address] 05/17/2025 2:30 PM EST Office Visit [facility] OPTOMETRY [address] [place] [address] Tarka, Christina, OD [address] [place] [address] documented as of this encounter Visit Diagnoses Not on filedocumented in this encounter Additional Health Concerns Assessment Noted Time PHQ-9 Depression Total Score: 0 11/12/19 24 12:12 PM EDT documented as of this encounter Care Teams [employer]rix Lead Relationship Specialty Start Date End Date Alessandra Díaz DO [address] [place] [address] PCP - General Family Medicine 04/27/18 documented as of this encounter
--- OUTSIDE RECORDS SUMMARY | 2025-01-31 17:47 | XMS_ITS | Encounter Summary ---
Author Organization [employer] Address [address] [facility] [address]t [place] [address] Care Team Providers Care Coronary Care Unit Nurse Name Role Phone Alessandra Díaz DO Primary Care Provider [phone]- [phone] Reason for Visit * Reason Onset Date Comments Appointment Request 08/25/2022 Encounter Details Date Type Department Care Team ([facility] st Contact Info) Description 08/25/2022 Telephone [facility] MEDICINE [address] [place], [place] [phone] Alessandra Díaz DO [address] [place], [place] [phone] Appointment Request Social History Tobacco Use Types [...] Miscellaneous Notes * Telephone Encounter - Venkata Ashely - 08/25/2022 4:26 PM EDT Tc from pt requesting a PAP appt. Please contact pt at [phone] documented in this encounter Plan of Treatment Upcoming Encounters Date Type Department Care Team (Late st Contact Info) Description 02/03/2025 10:30 AM EDT Office Visit [facility] MEDICINE [address] [place] [address] Alessandra Díaz DO [address] [place] [address] 05/17/2025 2:30 PM EST Office Visit [facility] OPTOMETRY [address] [place] [address] Christina Geller, OD [address] [place] [address] documented as of this encounter Visit Diagnoses Not on filedocumented in this encounter Care Teams Coronary Care Unit Nurse Relationship Specialty Start Date End Date Alessandra Díaz DO [address] [place] [address] PCP - General Family Medicine 04/27/18 documented as of this encounter
--- OUTSIDE RECORDS SUMMARY | 2025-01-31 17:47 | XMS_ITS | Encounter Summary ---
Author Organization [employer] Address [address] [facility] [address]t [place] [address] Care Team Providers Care Education Technician Name Role Phone Arjun Alessandra Primary Care Provider [phone] Reason for Visit * Reason Comments Med Refill Encounter Details Date Type Department Care Team (Late st Contact Info) Description 09/12/[address] [facility] ADULT DENTAL [address] [place] [address] Ricadro Downs DDS [address] [place] [address] Social History Tobacco Use Types Packs/Day Years [...] Description 02/03/2025 10:30 AM EDT Office Visit [facility] MEDICINE [address] [place] [address] Alessandra Díaz DO [address] [place] [address] 05/17/2025 2:30 PM EST Office Visit [facility] OPTOMETRY [address] [place] [address] TarChristina daley, OD [address] [place] [address] documented as of this encounter Visit Diagnoses Not on filedocumented in this encounter Additional Health Concerns Assessment Noted Time PHQ-9 Depression Total Score: 3 09/01/19 25 1:28 PM EDT documented as of this encounter Care Teams Education Technician Relationship Specialty Start Date End Date Alessandra Díaz DO [address] [place] [address] PCP - General Family Medicine 04/27/18 documented as of this encounter
--- OUTSIDE RECORDS SUMMARY | 2025-01-31 17:47 | XMS_ITS | Encounter Summary ---
Author Organization [employer] Address [address] [facility] 7t [place] [address] Care Team Providers Care Coat Maker Name Role Phone JocelynAlessandra watkins Primary Care Provider [phone] Reason for Visit * Reason Comments Med Refill Encounter Details Date Type Department Care Team ([facility] st Contact Info) Description 07/21/2024 Refill [facility] MEDICINE [address] [place], [place] [phone] Name, MD Grey [address] [place], [place] [phone] Social History Tobacco Use Types Packs/Day Years [...] Description 02/03/2025 10:30 AM EDT Office Visit [facility] MEDICINE [address] [place] [address] Alessandra Díaz DO [address] [place] [address] 05/17/2025 2:30 PM EST Office Visit [facility] OPTOMETRY [address] [place] [address] TarkaChristina, OD [address] [place] [address] documented as of this encounter Visit Diagnoses Not on filedocumented in this encounter Additional Health Concerns Assessment Noted Time PHQ-9 Depression Total Score: 0 11/12/19 24 12:12 PM EDT documented as of this encounter Care Teams Coat Maker Relationship Specialty Start Date End Date Alessandra Díaz DO [address] [place] [address] PCP - General Family Medicine 04/27/18 documented as of this encounter
--- OUTSIDE RECORDS SUMMARY | 2025-01-31 17:47 | XMS_ITS | Encounter Summary ---
Author Organization [employer] Address [address] [place] [address] Care Team Providers Care Supervisor [employer] Name Role Phone Alessandra Díaz DO Primary Care Provider [phone]- [phone] Encounter Details Date Type Department Care Team ([facility] st Contact Info) Description 04/03/2023 Telephone [facility] [address] [place], [place] [phone] Alessandra Díaz DO [address] [place], [place] [phone] Social History Tobacco Use Types Packs/Day Years [...] Description 02/03/2025 10:30 AM EDT Office Visit [facility] [address] [place] [address] Alessandra Díaz DO [address] [place] [address] 05/17/2025 2:30 PM EST Office Visit [facility] [address] [place] [address] Tarka, Christina, OD [address] [place] [address] documented as of this encounter Visit Diagnoses Not on filedocumented in this encounter Care Teams Supervisor [employer] Relationship Specialty Start Date End Date Alessandra Díaz DO [address] [place] [address] PCP - General Family Medicine 04/27/18 documented as of this encounter
--- OUTSIDE RECORDS SUMMARY | 2025-01-31 17:47 | XMS_ITS | Encounter Summary ---
Author Organization [employer] Address [address] [facility] 7t [place] [address] Care Team Providers Care Legal Stenographer Name Role Phone Alessandra Díaz DO Primary Care Provider [phone] Reason for Visit * Reason Comments Med Refill Encounter Details Date Type Department Care Team (Late st Contact Info) Description 09/16/2024 Refill [facility] [address] [place], [place] [phone] Alessandra Díaz DO [address] [place], [place] [phone] Social History Tobacco Use Types Packs/Day Years [...] Telephone Encounter - Alessandra Díaz DO - 09/16/2024 2:03 PM EDT Dose was increased to 50mg last visit. documented in this encounter Plan of Treatment Upcoming Encounters Date Type Department Care Team (Late st Contact Info) Description 02/03/2025 10:30 AM EDT Office Visit [facility] [address] [place] [address] Alessandra Díaz DO [address] [place] [address] 05/17/2025 2:30 PM EST Office Visit [facility] OPTOMETRY [address] [place], [place] [phone] Christina Geller, OD [address] [place] [address] documented as of this encounter Visit Diagnoses Not on filedocumented in this encounter Additional Health Concerns Assessment Noted Time PHQ-9 Depression Total Score: 3 09/01/19 25 1:28 PM EDT documented as of this encounter Care Teams Legal Stenographer Relationship Specialty Start Date End Date Alessandra Díaz DO [address] [place] [id number] PCP - General Family Medicine 04/27/18 documented as of this encounter
--- OUTSIDE RECORDS SUMMARY | 2025-01-31 17:47 | XMS_ITS | Encounter Summary ---
Author Organization [employer] Address [address] [facility] 7t [place] [address] Care Team Providers Care Technical Expert Name Role Phone Alessandra Díaz DO Primary Care Provider [phone] Reason for Visit * Reason Comments Med Refill Encounter Details Date Type Department Care Team (Late st Contact Info) Description 09/16/2024 Refill [facility] [address] [place], [place] [phone] Alessandra Díaz DO [address] [place], [place] [phone] Social History Tobacco Use Types Packs/Day Years [...] Description 02/03/2025 10:30 AM EDT Office Visit [facility] [address] [place] [address] Alessandra Díaz DO [address] [place] [address] 05/17/2025 2:30 PM EST Office Visit [facility] OPTOMETRY [address] [place] [address] Christina Geller, OD [address] [place] [address] documented as of this encounter Visit Diagnoses Not on filedocumented in this encounter Additional Health Concerns Assessment Noted Time PHQ-9 Depression Total Score: 3 09/01/19 25 1:28 PM EDT documented as of this encounter Care Teams Technical Expert Relationship Specialty Start Date End Date Alessandra Díaz DO [address] [place] [address] PCP - General Family Medicine 04/27/18 documented as of this encounter
--- OUTSIDE RECORDS SUMMARY | 2025-01-31 17:47 | XMS_ITS | Encounter Summary ---
Author Organization [email or web address] Address [address] [facility] 7t [place] [address] Care Team Providers Care Air Moving Technician Name Role Phone Alessandra Díaz DO Primary Care Provider [phone]- [phone] Reason for Visit * Reason Onset Date Comments Chart Prep 01/31/2025 Encounter Details Date Type Department Care Team ([facility] st Contact Info) Description 01/31/2025 Telephone [facility] [address] [place], [place] [phone] Alessandra Díaz DO 230 [place], [place] [phone] Chart Prep Social History Tobacco Use Types Packs/Day Years Used Date Smoking Tobacco: Never Passive Smoke Exposure: Never Smokeless Tobacco: Current Alcohol Use Standard Drinks/Week Comments Never 0 (1 standard drink = 0.6 oz pur e alcohol) Depression Answer Date Recorded Patient Health Questionnaire-9 Score 2 09/27/2024 Patient Health Questionnaire-9 Score 2 09/27/2024 Last PHQ-9: Questionnaire Data Not on file 0 09/27/2024 Housing Stability Answer Date Recorded What is [...] Date Recorded Patient Health Questionnaire-2 Score 0 09/27/2024 Internet Access Answer Date Recorded Internet Access [...] encounter Miscellaneous Notes * Telephone Encounter - Jana Grahma MA - 01/31/2025 9:42 AM EDT Chart Prep Labs: done Images: not done Referrals: no show All appointment requested. Vaccines due: Covid, Flu, and Hep A Screenings: colonoscopy, mammogram, and LMP Overdue care gaps: SBIRT, PHQ-9, and ROC-7 documented in this encounter Plan of Treatment Upcoming Encounters Date Type Department Care Team (Late st Contact Info) Description 02/03/2025 10:30 AM EDT Office Visit [facility] [address] [place], [place] [phone] Alessandra Díaz DO [address] [place] [address] 05/17/2025 2:30 PM EST Office Visit [facility] OPTOMET[facility] [address] [place] [address] Christina Geller, OD [address] [place] [address] documented as of this encounter Visit Diagnoses Not on filedocumented in this encounter Additional Health Concerns Assessment Noted Time PHQ-9 Depression Total Score: 2 09/28/19 25 1:46 PM EDT documented as of this encounter Care Teams Air Moving Technician Relationship Specialty Start Date End Date Alessandra Díaz DO [address] [place] [address] PCP - General Family Medicine 04/27/18 documented as of this encounter
--- OUTSIDE RECORDS SUMMARY | 2025-01-31 17:47 | XMS_ITS | Encounter Summary ---
Author Organization [employer] Address [address] [facility] 7t [place] [address] Care Team Providers Care Machine Fastener Name Role Phone Alessandra Díaz DO Primary Care Provider [phone]- [phone] Encounter Details Date Type Department Care Team ([facility] st Contact Info) Description 04/29/2024 Telephone [facility] [address] [place], [place] [phone] Alessandra Díaz DO [address] [place], [place] [phone] Social History Tobacco Use Types Packs/Day Years [...] availability and will like to be seen [phone] documented in this encounter Plan of Treatment Upcoming Encounters Date Type Department Care Team (Late st Contact Info) Description 02/03/2025 10:30 AM EDT Office Visit [facility] [address] [place] [address] Alessandra Díaz DO [address] [place] [address] 05/17/2025 2:30 PM EST Office Visit [facility] OPTOMETRY [address] [place] [address] Christina Geller, OD [address] [place] [address] documented as of this encounter Visit Diagnoses Not on filedocumented in this encounter Additional Health Concerns Assessment Noted Time PHQ-9 Depression Total Score: 0 11/12/19 24 12:12 PM EDT documented as of this encounter Care Teams Machine Fastener Relationship Specialty Start Date End Date Alessandra Díaz DO [address] [place] [address] PCP - General Family Medicine 04/27/18 documented as of this encounter
--- OUTSIDE RECORDS SUMMARY | 2025-01-31 17:47 | XMS_ITS | Encounter Summary ---
Author Organization [employer] Address [address] [facility] 7t [place] [address] Care Team Providers Care Ruling Machine Operator Name Role Phone JocelynAlessandra watkins Primary Care Provider [phone] Reason for Visit * Reason Comments Med Refill Encounter Details Date Type Department Care Team (Late st Contact Info) Description 10/27/2024 Refill [facility] [address] [place], [place] [phone] Usha Delaney FNP [address] [place], [place] [phone] Social History Tobacco Use Types Packs/Day Years [...] Description 02/03/2025 10:30 AM EDT Office Visit [facility] [address] [place] [address] Alessandra Díaz DO [address] [place] [address] 05/17/2025 2:30 PM EST Office Visit [facility] OPTOMETRY [address] [place] [address] TarChristina daley, OD [address] [place] [address] documented as of this encounter Visit Diagnoses Not on filedocumented in this encounter Additional Health Concerns Assessment Noted Time PHQ-9 Depression Total Score: 2 09/28/19 25 1:46 PM EDT documented as of this encounter Care Teams Ruling Machine Operator Relationship Specialty Start Date End Date Alessandra Díaz DO [address] [place] [address] PCP - General Family Medicine 04/27/18 documented as of this encounter
--- OUTSIDE RECORDS SUMMARY | 2025-01-31 17:47 | XMS_ITS | Encounter Summary ---
Author Organization [employer] Address [address] [facility] 7t [place] [address] Care Team Providers Care Physiotherapy Practice Manager Name Role Phone Alessandra Díaz DO Primary Care Provider [phone]- [phone] Reason for Visit * Reason Comments Pre-visit Planning SDOH screening compl eted on 08/16/2024 Encounter Details Date Type Department Care Team (Late st Contact Info) Description 01/26/2025 Patient Outreach [facility] [address] [place], [place] [phone] Alessandra Díaz DO [address] [place], [place] [phone] Pre-visit Planning (SDOH screening completed on 08/16/2024) Social History Tobacco Use Types Packs/Day Years [...] AM EDT documented as of this encounter Progress Notes * Jessica Nunez - 01/26/2025 1:30 PM EDT CC Jessica. Placed outbound call to patient to complete pre-visit planning. No answer at this time. Patient name and were not confirmed. CC left voicemail requesting return call. Direct contact information provided. documented in this encounter Plan of Treatment Upcoming Encounters Date Type Department Care Team (Late st Contact Info) Description 02/03/2025 10:30 AM EDT Office Visit [facility] [address] [place] [address] Alessandra Díaz DO [address] [place] [address] 05/17/2025 2:30 PM EST Office Visit [facility] OPTOMETRY [address] [place] [address] Christina Geller, OD [address] [place] [address] documented as of this encounter Visit Diagnoses Not on filedocumented in this encounter Additional Health Concerns Assessment Noted Time PHQ-9 Depression Total Score: 2 09/28/19 25 1:46 PM EDT documented as of this encounter Care Teams Physiotherapy Practice Manager Relationship Specialty Start Date End Date Alessandra Díaz DO [address] [place] [address] PCP - General Family Medicine 04/27/18 documented as of this encounter
--- OUTSIDE RECORDS SUMMARY | 2025-01-31 17:47 | XMS_ITS | Clinical Summary ---
Author Organization [employer] Address [address] [facility] 7t [place] [address] Care Team Providers Care Soft Top Installer Name Role Phone Jocelynroland Alessandra Primary Care Provider Allergies No known active allergies Medications * This document contains information received from the source organization and may not represent a complete record from that organization. docusate sodium (Colace) 100 MG capsule 02/07/20 22 Active methadone (Dolophine) 10 MG/ML solution Take 118 mg by mouth Once per day. Active Blood Pressure kit 1 each 1 (one) time per week. 1 kit 12/14/19 24 Active FeroSul 325 (65 Fe) MG tablet TAKE 1 TABLET BY MOUTH EVERY DAY 90 tablet 3 02/17/20 24 Active Ascorbic Acid (vitamin C) 250 MG tablet TAKE 1 TABLET BY MOUTH ONCE DAILY WITH IRON (FERROUS SULFATE) 90 tablet 3 02/17/20 24 Active amLODIPine (Norvasc) 2.5 MG tablet Take 1 tablet (2.5 mg) by mouth Once per day. 30 tablet 11 06/14/19 25 026 Active chlorhexidine (Peridex) 0.12 % solution Swish 15 mL morning and night for 1 minute. Spit, do not swallow. Do not eat or drink for 30 minutes following use. 473 mL 08/04/19 25 Active Eye Itch Relief 0.035 % solution PLACE 1 DROP INTO THE AFFECTED EYE(S) TWICE DAILY IN THE MORNING AND AT BEDTIME (ITCHY EYES) 10 mL 3 10/11/19 25 Active baclofen (Lioresal) 10 MG tabletIndicati ons:Muscle spasm TAKE 1 TABLET BY MOUTH THREE TIMES DAILY IN THE MORNING, AT NOON, AND AT BEDTIME NEEDED FOR MUSCLE SPASMS 60 tablet 2 10/25/19 25 Active tolterodine LA (Detrol LA) 4 MG 24 hr capsule TAKE 1 CAPSULE BY MOUTH EVERY DAY. 90 capsule 10/28/19 25 Active D3 Super Strength 50 MCG (2000 UT) capsule TAKE 1 CAPSULE BY MOUTH EVERY DAY 90 capsule 1 11/11/19 25 Active cetirizine (ZyrTEC) 10 MG tablet TAKE 1 TABLET BY MOUTH EVERY DAY 90 tablet 3 12/03/19 25 Active fluticasone furoate (Arnuity Ellipta) 200 MCG/ACT inhaler Inhale 1 puff Once per day. Rinse mouth with water after use to reduce aftertaste and incidence of candidiasis. Do not swallow. 1 each 11 12/03/19 25 026 Active SUMAtriptan (Imitrex) 25 MG tablet TAKE 1 TABLET BY MOUTH AT ONSET OF MIGRAINE. MAY REPEAT ONCE AFTER 2 HOURS IF NEEDED DO NOT EXCEED 2 DOSES IN 24 HOURS 9 tablet 3 12/08/19 25 Active naproxen (Naprosyn) 500 MG tablet TAKE 1 TABLET BY MOUTH TWICE DAILY FOR FOR MILD PAIN 30 tablet 1 12/15/19 25 Active Diclofenac Sodium 1 % gel APPLY 2 GRAMS TOPICALLY TO AFFECTED AREA(S) TWICE DAILY NEEDED FOR PAIN 100 g 3 12/28/19 25 Active acetaminophen (Tylenol 8 Hour) 650 MG ER tablet TAKE 1 TABLET BY MOUTH EVERY 8 HOURS NEEDED FOR MILD PAIN DO NOT BREAK, CRUSH, DISSOLVE OR CHEW 40 tablet 1 12/30/19 25 Active hydrOXYzine pamoate (Vistaril) 50 MG capsule Take 1 capsule (50 mg) by mouth every 6 (six) hours if needed for anxiety. TAKE 1 CAPSULE BY MOUTH EVERY 6 HOURS NEEDED FOR ANXIETY 60 capsule 3 12/30/19 25 Active FLUoxetine (PROzac) 20 MG capsule TAKE 2 CAPSULES BY MOUTH EVERY DAY 60 capsule 3 12/30/19 25 Active fluticasone (Flonase) 50 MCG/ACT nasal spray INSTILL 2 SPRAYS IN EACH NOSTRIL ONCE DAILY 48 g 3 01/07/20 25 Active triamcinolone (Kenalog) 0.1 % cream MIX WITH cerave AND APPLY TOPICALLY TO THE AFFECTED AREA(S) TWICE DAILY DIRECTED FOR 28 DAYS 80 g 01/07/20 25 Active Ventolin HFA 108 (90 Base) MCG/ACT inhaler INHALE 2 PUFFS BY MOUTH EVERY 6 HOURS NEEDED FOR WHEEZING OR SHORTNESS OF BREATH 18 g 1 01/19/20 25 Active fluticasone (Flonase) 50 MCG/ACT nasal spray Administer 2 sprays into each nostril Once per day. Shake gently. Before first use, prime pump. After use, clean tip and replace cap. 16 g 11 10/23/19 24 025 Discontinued triamcinolone (Kenalog) 0.1 % cream MIX WITH cerave AND APPLY TOPICALLY TO THE AFFECTED AREA(S) TWICE DAILY DIRECTED FOR 28 DAYS 80 g 10/28/19 25 025 Discontinued(Re order (will not trigger notification to Pharmacy)) Ventolin HFA 108 (90 Base) MCG/ACT inhaler INHALE 2 PUFFS BY MOUTH EVERY 6 HOURS NEEDED FOR WHEEZING OR SHORTNESS OF BREATH 18 g 1 11/30/19 25 025 Discontinued Active Problems Problem Noted Date Diagnosed Date [...] 07/18/2015 Chronic migraine 07/18/2015 BMI 50.0-59.9, adult (CMS/HCC) 07/18/2015 Fatty liver 07/18/2015 Resolved Problems Problem [...] the tests they will do at the [facility]TR[facility] PLANT OPER[facility] office. She opted to rs appt for FILTRATION PLANT OPERATOR and have all tests done at the time of appt and walked out of the exam room. I will schedule pelvic US. Patient left and didn't want to have vaginal self swab. I called FILTR[employer] PL[employer] OPERATOR office and she already had rs her appt for 09/25. Patient to continue 90d cycle OCP instead, switch to ortho evra patch(rx Last week) this month if bleeding doesn't stop at the time of last pill Encounters Date Type Department Care Team Description 01/31/2025 Telephone [facility] [place] [address] Alessandra Díaz DO Chart Prep 01/26/2025 Patient Outreach [facility] [address] [place] [address] Alessandra Díaz DO Pre-visit Planning (SDOH screening completed on 08/16/2024) 01/24/2025 Travel 01/20/2025 Telephone [facility] [address] [place] [address] Alessandra Díaz DO Appointment Request 01/17/2025 Refill [facility] [address] [place] [address] Anuja Interiano MD 01/06/2025 Refill [facility] [address] [place] [phone] Anuja Interiano MD 01/06/2025 Refill [facility] [address] [place] [address] Alessandra Díaz DO 12/29/2024 Refill [facility] [address] [place] [address] Alessandra Díaz DO 12/28/2024 Patient Outreach [facility] [address] [place] [address] Alessandra Díaz DO Care Coordination ([facility] Shea Galeana telephone call outreach) 12/27/2024 Patient Outreach [facility] [address] [facility] [place] [address] Alessandra Díaz, DO Care Management (C3CM- F/U call) 12/27/2024 Refill [facility] [address] [facility] [place], [place] [address] Alessandra Díaz, DO 12/26/2024 Refill [facility] [address] [facility] [place] [address] Alessandra Díaz, DO 12/24/2024 Refill [facility] [address] [facility] [place] [address] Alessandra Díaz, DO 12/22/2024 Telephone [facility] [address] [facility] [place] [address] Alessandra Díaz, DO Appointment Request 12/14/2024 Refill [facility] [address] [facility] [place] [address] Alessandra Díaz, DO 12/06/2024 Refill [facility] [address] [facility] [place] [address] Alessandra Díaz, DO 12/02/2024 Refill [facility] [address] [facility] [place] [address] Alessandra Díaz, DO 12/01/2024 Refill [facility] [address] [facility] [place] [address] Alessandra Díaz, DO 11/27/2024 Refill [facility] [address] [facility] [place] [address] Alessandra Díaz, DO 11/18/2024 3:00 PM EDT Office Visit [facility] [address] [facility] [place] [address] Yesenia Hoffman, SHERRI 11/17/2024 Patient Outreach [facility] [address] [facility] [place] [address] Alessandra Díaz, DO Care Management (C3CM- F/U call # 1 (2nd attempt)) 11/07/2024 Refill [facility] [address] [place] [address] Alessandra Díaz DO from Last 3 Months Immunizations Immunization Administration [...] 80 08/31/2024 11:08 AM EDT Temperature 36.7 C (98.1 F) 08/31/2024 11:08 AM EDT Respiratory Rate 20 08/31/2024 11:0 [...] Description 02/03/2025 10:30 AM EDT Office Visit [facility] [address] [place], [place] [phone] Alessandra Díaz DO [address] [place] [address] 05/17/2025 2:30 PM EST Office Visit [facility] [address] [place], [place] [phone] Christina Geller, OD [address] [place] [address] Health Maintenance Due Date Last Done Comments CT Colonography 1975 Colonoscopy 1975 Colorectal Cancer Screening 1975 Dental Prophylaxis 1975 FIT DNA/Cologuard 1975 FIT 1975 FOBT 1975 Sigmoidoscopy 1975 Family Planning (PISQ) 08/01/1990 Hepatitis A Vaccines (2 of 2 - Risk 2-dose series) 06/05/2006 12/03/2005 Dental Oral Exam 07/01/2012 01/01/2012 Mammogram 09/19/2019 09/18/2017 Dental X-Ray: Full Mouth 07/20/2023 07/18/2020, 09/2011 COVID-19 Vaccine ( season) 2024 10/05/2023, 05/06/2022, 01/01/2021, Additional history exists Influenza Vaccine (#1) 2024 , 03/15/2021, 03/27/2020, Additional history exists Zoster Vaccines (1 of 2) 08/01/2025 Dental X-Ray: Bitewings 08/04/2025 08/03/2024, 12/31 SDOH Screening 08/16/2025 08/16/2024 Disability Screening 08/31/2025 08/31/2024 Pap Smear 09/12/2025 09/12/2022, 09/12/2022 Alcohol/Substance Use Screening 09/27/2025 09/27/2024 Depression Screening 09/27/2025 09/27/2024, 09/28/19 Tobacco Screening 11/18/2025 11/18/2024 Cervical Cancer Screening 09/13/2027 HPV/Cotest 09/13/2027 09/12/2022 Lipid Panel 09/08/2029 09/08/2024, 04/27, 03/29/2020 DTaP/Tdap/Td Vaccines (3 - Td or Tdap) 02/07/2032 02/06/2022, 06/10/2011, 05/19/2005 RSV Patients and Patients Aged 60 years or older (1 - 1-dose 75+ series) 08/01/2050 Hepatitis B Vaccines Completed 11/24/2011, 08/12/2011, 06/10/2011, Additional history exists Pneumococcal Vaccine: Pediatrics (0 to 5 Years) and At-Risk Patients (6 to 49) Years Completed 08/31/2024 HIV Screening Completed 09/08/2024, 04/27, 03/29/2020 Hepatitis C Screening Completed 09/08/2024 , 05/09/2022, 03/29/2020 HIB Vaccines Aged Out No longer eligi [...] Procedure Name Priority Date/Time Associated Diagnosis Comments CASE PRESENTATION, DETAILED AND EXTENSIVE TREATMENT PLANNING Routine 11/18/2024 3:00 PM EDT INTRAORAL - PERIAPICAL EACH ADDITIONAL RADIOGRAPHIC IMAGE Routine 11/18/2024 3:00 PM EDT INTRAORAL - PERIAPICAL FIRST RADIOGRAPHIC IMAGE Routine 11/18/2024 3:00 PM EDT 20 LIMITED ORAL EVALUATION - PROBLEM FOCUSED Routine 11/18/2024 3:00 PM EDT HEPATITIS C AB W/REFL TO HCV RNA, QN, PCR Routine 09/08/2024 11:31 AM EDT Abnormal uterine bleeding (AUB) HIV 1/2 ANTIGEN/ANTIBODY, FOURTH GENERATION W/RFL Routine 09/08/2024 11:31 AM EDT Abnormal uterine bleeding (AUB) LIPID PANEL, STANDARD Routine 09/08/2024 11:30 AM EDT Anxiety Fatty liver Abnormal uterine bleeding (AUB) TELLO (dyspnea on exertion) Obstructive sleep apnea Seasonal allergic rhinitis, unspecified trigger Rash Healthcare maintenance BMI 50.0-59.9, adult ([facility]) Encounter for screening mammogram for malignant neoplasm of breast Screening for colon cancer Encounter for immunization BITEWING - SINGLE RADIOGRAPHIC IMAGE Routine 08/03/2024 3:00 PM EDT THINPREP PAP, HPV MRNA E6/E7 RFX HPV 16,18/45, CHLAMYDIA/N.GONORRHOE AE Routine 09/12/2022 12:00 AM EDT HM PAP/HPV Routine 09/12/2022 PANORAMIC RADIOGRAPHIC IMAGE Routine 07/18/2020 12:00 AM EDT BI MAMMOGRAM SCREENING BILATERAL Routine 09/18/2017 7:09 AM EDT COMPREHENSIVE ORAL EVALUATION - NEW OR ESTABLISHED PATIENT Routine 01/01/2012 12:00 AM EDT from Last 3 Months or Most Recently Relevant to Health Maintenance Results * Hepatitis C Antibody with Reflex to HCV, RNA, Quantitative, Real-Time PCR (09/08/2024 11:31 AM EDT) Hepatitis C Antibody Nonreactive Nonreactive [facility] Comment:Antibodies to HCV no t detected; does not exclude early acuteHCV infection. Blood Venous blood specimen / Unknown 09/08/2024 11:31 AM EDT 09/08/2024 1:16 PM EDT us Alessandra Díaz DO LAB BLOOD ORDERABLES Final R esult [facility] [address] [place] [phone] * HIV-1/2 Antigen and Antibodies, Fourth Generation, with Reflexes (09/08/2024 11:31 AM EDT) HIV AB/AG Nonreactive Nonreactive [facility] Comment:HIV-1 p24 Ag and/or HIV-1/HIV-2 Ab not detected.A test result that is nonreactive does not exclude thepossibility of exposure to or infection with HIV-1 and/orHIV-2. Nonreactive results in this assay for individualswith prior exposure to HIV-1 and/or HIV-2 may be due toantigen and antibody levels that are below the limit ofdetection of this assay.[employer] HIV Ag/Ab Combo assay result andsupplemental assay results should be interpreted inconjunction with the patient's clinical presentation,history and other laboratory results. If the results areinconsistent with clinical evidence, additional testing issuggested to confirm the result. Blood Venous blood specimen / Unknown 09/08/2024 11:31 AM EDT 09/08/2024 1:16 PM EDT us Alessandra Díaz DO LAB BLOOD ORDERABLES Final R esult [facility] [address] [place] [phone] * Lipid Panel, Standard (09/08/2024 11:30 AM EDT) Triglycerides 71 <150 mg/dL [facility] Comment:Desirable Triglyceri de: less than 150 mg/dLBorderline High Triglyceride 150-199 mg/dLHigh Triglyceride: 200-499 mg/dLVery High Triglyceride: greater than or equal to 5OO mg/dL Cholesterol 133 <200 mg/dL [facility] Comment:Desirable Cholestero l: less than 200 mg/dLBorderline High Cholesterol: 200-239 mg/dLHigh Cholesterol: greater than 239 mg/dL LDL Cholesterol Calculated 76 <100 mg/dL [facility] Comment:Desirable LDL: less than 100 mg/dLNear Optimal/Above Optimal LDL: 110- 129 mg/dLBorderline High LDL: 130-159 mg/dLHigh LDL: 160-189 mg/dLVery High LDL: greater than or equal to 190 mg/dL HDL Cholesterol 43 >40 mg/dL [facility] Comment:Desirable HDL: great er than 40 mg/dL Note: This HDL assay may give artificially low results in patients with liver disease. Blood Venous blood specimen / Unknown 09/08/2024 11:30 AM EDT 09/08/2024 1:16 PM EDT us Alessandra Arjun DO LAB BLOOD ORDERABLES Final R esult [facility] [address] [place] [phone] * Thinprep PAP, HPV mRNA E6/E7 RFX HPV 16,18/45, Chlamydia/N. Gonorrhoeae (09/12/2022 12:00 AM EDT) Clinical Information: SCREENING [facility] LMP: 08/09/22 [employer] Prev. PAP: NONE GIVEN [employer] Prev. BX: NONE GIVEN [employer] SOURCE: None given [facility] Statement Of Adequacy: [facility] Comment: Satisfactory for evaluation. Endocervical/transformation zone component present. Interpretation/Re sult: Negative for intraepithelial lesion or malignancy. [employer] Distance Learning Administrator: Anuj Bread Comment: HOWIE ESPINOZA(ASCP) CT screening location: [place] [phone] (Always Message) [facility] Comment: EXPLANATORY NOTE: The Pap is a [...] HPV nRNA E6/E7 Not Detected Not Detected [facility] Comment: Methodology: Card Processing Clerk-Mediated Amplification This assay detects E6/E7 viral messenger RNA (mRNA) from 14 high-risk HPV types (16,18,31,33,35,39,45,51,52,56,58,59,66,68). Cervical sources are required for HPV testing. If a vaginal source from a patient who has had a total hysterectomy with removal of cervix was submitted, please contact the testing laboratory for alternative testing options. For additional information, please refer to http://education.[employer]/faq/ANQ887b0 (This link if provided for information/ educational purposes only.) Chlamydia trachomatis RNA, TMA, Urogenital NOT DETECTED NOT DETECTED [facility] [place] [employer] Neisseria gonorrhoeae RNA, TMA, Urogenital NOT DETECTED NOT DETECTED [facility] [place] [facility] (Always Message) [facility] Comment: The analytical performance characteristics of this assay, when used to test SurePath(TM) specimens have been determined by [facility]. The modifications have not been cleared or approved by the FDA. This assay has been validated pursuant to the CLIA regulations and is used for clinical purposes. For additional information, please refer to https://education.[employer]/faq/WFC018 (This link is being provided for information/ educational purposes only.) 09/12/2022 09/15/2022 10: 04 AM EDT Narrative [facility] - 09/17/2022 4:23 PM EDT FASTING: UNKNOWN Alessandra Díaz DO LAB PATHOLOGY ORDERABLES Fin al Result [facility] [address], [place] [phone] [facility] [place] [facility] [address] [place] [phone] * Hm Pap Smear (09/12/2022) HM Pap smear NIL HPV- Historical Provider HEALTH MAINTENANCE Final Result * DIGITAL BILATERAL SCREEN 1 (09/18/2017 7:09 [...] Most Recently Relevant to Health Maintenance Insurance [facility] C3 DENTAL-[facility] MEDICAID STAND ADULT [facility] C3 Care Teams Soft Top Installer Relationship Specialty Start Date End Date Alessandra Díaz DO [address] [place] [phone] PCP - General Family Medicine 04/27/18
--- OUTSIDE RECORDS SUMMARY | 2025-01-31 17:47 | XMS_ITS | Encounter Summary ---
Author Organization [employer] Address [address] [facility] 7t [place] [address] Care Team Providers Care Freelance Makeup Artist Name Role Phone Alessandra Díaz DO Primary Care Provider [phone] Encounter Details Date Type Department Care Team (Late Contact Info) Description 04/08/2022 Telephone [facility] [address] [place] [phone] Alessandra Díaz DO [address] [place] [address] Social History Tobacco Use Types Packs/Day Years [...] Department Care Team (Late Contact Info) Description 02/03/2025 10:30 AM EDT Office Visit [facility] [address] [place] [phone] Alessandra Díaz DO [address] [place] [address] 05/17/2025 2:30 PM EST Office Visit [facility] [address] [place] [address] Esvinthuy Christina, OD [address] [place] [address] documented as of this encounter Visit Diagnoses Not on filedocumented in this encounter Care Teams Freelance Makeup Artist Relationship Specialty Start Date End Date Alessandra Díaz DO [address] [place] [address] PCP - General Family Medicine 04/27/18 documented as of this encounter
--- OUTSIDE RECORDS SUMMARY | 2025-01-31 17:47 | XMS_ITS | Encounter Summary ---
Author Organization [employer] Address [address] [facility] [address] 7[address] [place] [address] Care Team Providers Care Primary School Teacher Librarian Name Role Phone JocelynAlessandra watkins Primary Care Provider [phone] Reason for Visit * Reason Comments Med Refill Encounter Details Date Type Department Care Team (Late st Contact Info) Description 03/08/2024 Refill [facility] [address] [place], [place] [phone] Anuja Interiano MD [address] [place], [place] [phone] Acute atopic conjunctivitis, bilateral Social History Tobacco [...] is your housing situation today? I have catreina lloyd 07/14/[address] you [...] Description 02/03/2025 10:30 AM EDT Office Visit [facility] [address] [place] [address] Alessandra Díaz DO [address] [place] [address] 05/17/2025 2:30 PM EST Office Visit [facility] [address] [place] [address] Tarka, Christina, OD [address] [place] [address] documented as of this encounter Visit Diagnoses Diagnosis Acute atopic conjunctivitis, bilateral documented in this encounter Additional Health Concerns Assessment Noted Time PHQ-9 Depression Total Score: 0 11/12/19 24 12:12 PM EDT documented as of this encounter Care Teams Primary School Teacher Librarian Relationship Specialty Start Date End Date Alessandra Díaz DO [address] [place] [address] PCP - General Family Medicine 04/27/18 documented as of this encounter
--- OUTSIDE RECORDS SUMMARY | 2025-01-31 17:47 | XMS_ITS | Encounter Summary ---
Author Organization [employer] Address [address] [facility] 7t [place] [address] Care Team Providers Care Tender Coordinator Name Role Phone Arjun Alessandra Primary Care Provider [phone] Reason for Visit * Reason Comments Med Refill Encounter Details Date Type Department Care Team (Late st Contact Info) Description 09/28/2024 Refill [facility] [address] [place] [address] Ricardo Downs DDS [address] [place], [place] [phone] Social History Tobacco Use Types Packs/Day Years [...] Description 02/03/2025 10:30 AM EDT Office Visit [facility] [address] [place] [address] Alessandra Díaz DO [address] [place] [address] 05/17/2025 2:30 PM EST Office Visit [facility] [address] [place] [address] TarChristina daley, OD [address] [place] [address] documented as of this encounter Visit Diagnoses Not on filedocumented in this encounter Additional Health Concerns Assessment Noted Time PHQ-9 Depression Total Score: 2 09/28/19 25 1:46 PM EDT documented as of this encounter Care Teams Tender Coordinator Relationship Specialty Start Date End Date Alessandra Díaz DO [address] [place] [address] PCP - General Family Medicine 04/27/18 documented as of this encounter
--- OUTSIDE RECORDS SUMMARY | 2025-01-31 17:47 | XMS_ITS | Encounter Summary ---
Author Organization [employer] Address [address] [facility] 7t [place] [address] Care Team Providers Care Level Vial Marker Name Role Phone Alessandra Díaz DO Primary Care Provider [phone] Reason for Visit * Reason Comments Med Refill Encounter Details Date Type Department Care Team (Late st Contact Info) Description 10/03/2024 Refill [facility] [address] [place] [address] Alessandra Díaz DO [address] [place], [place] [phone] Social History Tobacco Use Types Packs/Day Years [...] 10:30 AM EDT Office Visit [facility] [address] [place] [address] Alessandra Díaz DO [address] [place] [address] 05/17/2025 2:30 PM EST Office Visit [facility] [address] [place] [address] Christina Geller, OD [address] [place] [address] documented as of this encounter Visit Diagnoses Not on filedocumented in this encounter Additional Health Concerns Assessment Noted Time PHQ-9 Depression Total Score: 2 09/28/19 25 1:46 PM EDT documented as of this encounter Care Teams Level Vial Marker Relationship Specialty Start Date End Date Alessandra Díaz DO [address] [place] [address] PCP - General Family Medicine 04/27/18 documented as of this encounter
--- OUTSIDE RECORDS SUMMARY | 2025-01-31 17:47 | XMS_ITS | Encounter Summary ---
Author Organization [employer] Address [address] [facility] 7t [place] [address] Care Team Providers Care Borematic Machine Operator Name Role Phone Alessandra Díaz DO Primary Care Provider [phone] Reason for Visit * Reason Comments Med Refill Encounter Details Date Type Department Care Team (Late st Contact Info) Description 06/17/2024 Refill [facility] [address] [place], [place] [phone] Alessandra Díaz DO [address] [place], [place] [phone] Social History Tobacco Use Types Packs/Day Years [...] Description 02/03/2025 10:30 AM EDT Office Visit [facility] [address] [place] [address] Alessandra Díaz DO [address] [place] [address] 05/17/2025 2:30 PM EST Office Visit [facility] [address] [place] [address] Christina Geller, OD [address] [place] [address] documented as of this encounter Visit Diagnoses Not on filedocumented in this encounter Additional Health Concerns Assessment Noted Time PHQ-9 Depression Total Score: 0 11/12/19 24 12:12 PM EDT documented as of this encounter Care Teams Borematic Machine Operator Relationship Specialty Start Date End Date Alessandra Díaz DO [address] [place] [address] PCP - General Family Medicine 04/27/18 documented as of this encounter
--- OUTSIDE RECORDS SUMMARY | 2025-01-31 17:47 | XMS_ITS | Encounter Summary ---
Author Organization [employer] Address 75 [facility] 7t [place] [address] Care Team Providers Care Rivet Hole Puncher Name Role Phone Arjun Alessandra Primary Care Provider +1 [phone] Reason for Visit * Reason Comments Med Refill Encounter Details Date Type Department Care Team (Late st Contact Info) Description 09/16/2024 Refill [facility] ADULT DENTAL [address] [place] [address] Ricardo Downs DDS [address] [place], [place] [phone] Social History Tobacco Use Types Packs/Day Years [...] Description 02/03/2025 10:30 AM EDT Office Visit [facility] MEDICINE [address] [place] [address] Alessandra Díaz DO [address] [place] [address] 05/17/2025 2:30 PM EST Office Visit [facility] OPTOMETRY [address] [place] [address] TarChristina daley, OD [address] [place] [address] documented as of this encounter Visit Diagnoses Not on filedocumented in this encounter Additional Health Concerns Assessment Noted Time PHQ-9 Depression Total Score: 3 09/01/19 25 1:28 PM EDT documented as of this encounter Care Teams Rivet Hole Puncher Relationship Specialty Start Date End Date Alessandra Díaz DO [address] [place] [address] PCP - General Family Medicine 04/27/18 documented as of this encounter
== END 2025-01-31 14:58 | disposition home or self-care (01) ==
LOC: HO.HPS 14:27
PROVIDERS: PCP Family Medicine; Visit Provider Internal Medicine Pulmonary Disease
DX: G47.33 Obstructive sleep apnea (adult) (pediatric) (principal); J96.11 Chronic respiratory failure with hypoxia
CPT/HCPCS: 99214

== ENCOUNTER → 2025-01-31 14:26 | Outpatient (BNVA) | payer MEDICAID, SELFPAY | PROVIDERS: PCP Family Medicine; Visit Provider Internal Medicine Pulmonary Disease | DX: G47.33 Obstructive sleep apnea (adult) (pediatric) (principal); Z99.89 Dependence on other enabling machines and devices; J96.11 Chronic respiratory failure with hypoxia | CPT/HCPCS: 99212 ==

== ENCOUNTER 2025-03-21 13:10 | Outpatient (AMB) | payer MEDICAID, SELFPAY ==
[2025-03-21 13:27] VITALS: BP 152/100; PULSE 83; O2SAT 92; BMI 58.3
--- NOTE | 2025-03-21 13:27 | MHC.OFFVIS ---
Vital Signs 03/21/25 13:27 Height 5 ft 2 in Weight 318 lb 9.087 oz BMI 58.3 BP 152/100 H Blood Pressure Location Rt brachial Position Sitting Pulse 83 Pulse Source Pulse Oximeter Pulse Oximetry (%) 92 Oxygen Delivery Method Room Air Intake Visit Reasons: visit/6mw Allergies No Known Allergies Allergy (Unknown, Verified 03/21/25 13:33) HPI HPI visit/6mw: Details: 49-year-old lady, nonsmoker, with underlying obesity, now followed for mild obstructive sleep apnea with supplemental oxygen dependency.? Patient been continue to try to get used to using APAP. She was not able to receive her portable oxygen concentrator yet. Today she completed her 6 minute walk test and she is requiring supplemental oxygen at 1 L continuous flow to maintain normal oximetry with exertion. ON LICENSE OF [facility] Surgical History Hx of section History of cholecystectomy Family History Father No problems noted. Mother Arthritis Social History Household Members: Children Household Members Other:: Two children, recently Housing: Apartment Do you presently have visiting nurse or other home services: No Patient Tobacco Use Status: Never used Tobacco Second Hand Smoke Exposure: No service: No Current occupational status: disabled Review of Systems Const Denies daytime sleepiness, Denies excessive sweating, Denies fatigue, Denies fever(s), Denies lethargy, Denies malaise, Denies night sweats, Denies snoring and Denies weight loss Eyes Denies blurry vision and Denies itchy eyes ENT Denies nasal congestion, Denies post nasal drip, Denies sinus pain, Denies sinus pressure and Denies other ( Thrush) Card Denies chest pain, Denies pedal edema, Denies dyspnea, Reports dyspnea on exertion, Denies orthopnea and Denies paroxysmal nocturnal dyspnea Resp Denies cough, Denies hemoptysis, Denies excessive phlegm production, Denies dyspnea, Reports dyspnea on exertion, Denies snoring and Denies wheezing GI Denies abdominal pain and Denies heartburn Musc Denies myalgias, Denies arthralgias and Denies joint swelling Skin/Breast Denies rash Neuro Denies memory loss and Denies seizure-like activity Psych Denies abnormal sleep pattern, Denies anxiety and Denies memory loss Endo Denies excessive sweating, Denies fatigue and Denies heat intolerance Pablo/Lymph Denies easy bruising Aller/Immun Denies itchy eyes, Denies seasonal rhinorrhea and Denies wheezing Physical Exam Vital Signs: Last Vital Signs Pulse 83 03/21/25 13:27 BP 152/100 H 03/21/25 13:27 Pulse Ox 92 03/21/25 13:27 Oxygen Delivery Method Room Air 03/21/25 13:27 BMI result Body Mass Index 58.3 Const General: no acute distress and alert Nutritional Appearance: obese Orientation/consciousness: Other orientation findings ( oriented) HEENT Head: Yes atraumatic Eyes General: appearance normal, both eyes and all related structures Sclerae: sclerae normal EOM: EOMs intact bilaterally Neck Neck: Yes supple Lymphatic: no lymphadenopathy noted Resp Effort & Inspection: normal respiratory effort and no use of accessory muscles Auscultation: clear to auscultation bilaterally Cardio Rate: regular rate Rhythm: regular rhythm Heart sounds: no gallops, no murmurs and no rubs Skin General skin exam: other ( warm) Extrem General: No clubbing, No cyanosis and No edema Office Procedures 6 Minute Walk Time:: 13:40 SPO2 % at rest: 94 Pulse at rest: 81 SPO2 % during excercise: 88 Pulse during excercise: 136 SPO2 % after excercise: 93 Pulse after excercise: 91 Distance in yards walked: 120 Mary Anne Score: 8 Performance Observations:: Alexa walked on level ground without assistance, she walked on room air for 50 yards before her SPO2 decreased to 88%. O2 started at 1 lpm and with a brief rest her SPO2 recovered to 94%. Her HR was elevated to 136 bpm briefly and recovered with a short rest. SPO2 stable 90-93% on 1 lpm continuous O2 98058 - 6 Minute Walk Assessment & Plan Assessment & Plan (1) LETICIA (obstructive sleep apnea): Code(s): G47.33 - Obstructive sleep apnea (adult) (pediatric) Category: Medical Plan: Continue noninvasive positive pressure ventilation therapy. (2) Chronic hypoxemic respiratory failure: Code(s): J96.11 - Chronic respiratory failure with hypoxia Category: Medical Plan: 6 minute walk test/supplemental oxygen evaluation performed, patient requires supplemental oxygen at 1 L continuous flow to maintain normal oximetry with exertion. Order placed. Orders: Orders AMB 6 minute walk Today J96.11 - Chronic respiratory failure with hypoxia Coding Level of Care Code Est Pt Level 4 (16018) Diagnoses LETICIA (obstructive sleep apnea) G47.33 Chronic hypoxemic respiratory failure J96.11 CPT Codes Coding ([id number])
[2025-03-21 13:47] VITALS: PULSE 81; O2SAT 94
--- OUTSIDE RECORDS SUMMARY | 2025-03-21 16:57 | XMS_ITS | Encounter Summary ---
Author Organization [employer] Address 75 [facility] 7t [place] [address] Care Team Providers Care Merchandise Complaint Adjuster Name Role Phone JocelynAlessandra watkins Primary Care Provider [phone] Reason for Visit * Reason Comments Med Refill Encounter Details Date Type Department Care Team (Late st Contact Info) Description 10/27/2024 Refill [facility] [address] [place], [place] [phone] Usha Delaney FNP [address] [place], [place] [phone] Social History Tobacco Use Types Packs/Day Years [...] Care Team (Late st Contact Info) Description 05/17/2025 2:30 PM EST Office Visit [facility] OPTOMETRY [address] [place], [place] [phone] Christina Geller, OD [address] [place] [address] documented as of this encounter Visit Diagnoses Not on filedocumented in this encounter Additional Health Concerns Assessment Noted Time PHQ-9 Depression Total Score: 2 09/28/19 25 1:46 PM EDT documented as of this encounter Care Teams Merchandise Complaint Adjuster Relationship Specialty Start Date End Date Alessandra Díaz DO [address] [place] [address] PCP - General Family Medicine 04/27/18 documented as of this encounter
--- OUTSIDE RECORDS SUMMARY | 2025-03-21 16:57 | XMS_ITS | Encounter Summary ---
Author Organization [employer] Address [address] [facility] [address] 7t [place] [address] Care Team Providers Care Film Replacement Orderer Name Role Phone JocelynAlessandra watkins Primary Care Provider [phone] [phone] Reason for Visit * Reason Comments Med Refill Encounter Details Date Type Department Care Team (Late st Contact Info) Description 03/08/2024 Refill [facility] [address] [place], [place] [phone] Anuja Interiano MD [address] [place], [place] [phone] Acute atopic conjunctivitis, bilateral Social History Tobacco [...] Description 05/17/2025 2:30 PM EST Office Visit [facility] OPTOMETRY [address] [place] [address] TarkaChristina, OD [address] [place] [address] documented as of this encounter Visit Diagnoses Diagnosis Acute atopic conjunctivitis, bilateral documented in this encounter Additional Health Concerns Assessment Noted Time PHQ-9 Depression Total Score: 0 11/12/19 24 12:12 PM EDT documented as of this encounter Care Teams Film Replacement Orderer Relationship Specialty Start Date End Date Alessandra Díaz DO [address] [place] [address] PCP - General Family Medicine 04/27/18 documented as of this encounter
--- OUTSIDE RECORDS SUMMARY | 2025-03-21 16:57 | XMS_ITS | Encounter Summary ---
Author Organization [employer] Address 75 [facility] 7t [place] [address] Care Team Providers Care Business Development Associate Name Role Phone Alessandra Díaz DO Primary Care Provider [phone]- [phone] Encounter Details Date Type Department Care Team ([facility] st Contact Info) Description 04/29/2024 Telephone [facility] MEDICINE [address] [place], [place] [phone] Alessandra Díaz DO [address] [place], [place] [phone] Social History Tobacco Use Types Packs/Day Years [...] availability and will like to be seen [phone] documented in this encounter Plan of Treatment Upcoming Encounters Date Type Department Care Team (Late st Contact Info) Description 05/17/2025 2:30 PM EST Office Visit [facility] OPTOMETRY [address] [place] [address] Christina Geller, OD [address] [place] [address] documented as of this encounter Visit Diagnoses Not on filedocumented in this encounter Additional Health Concerns Assessment Noted Time PHQ-9 Depression Total Score: 0 11/12/19 24 12:12 PM EDT documented as of this encounter Care Teams Business Development Associate Relationship Specialty Start Date End Date Alessandra Díaz DO [address] [place] [address] PCP - General Family Medicine 04/27/18 documented as of this encounter
--- OUTSIDE RECORDS SUMMARY | 2025-03-21 16:57 | XMS_ITS | Encounter Summary ---
Author Organization [employer] Address 75 [facility] 7t [place] [address] Care Team Providers Care Hand Salter Name Role Phone Alessandra Díaz DO Primary Care Provider [phone]- [phone] Reason for Visit * Reason Onset Date Comments Appointment Request 08/25/2022 Encounter Details Date Type Department Care Team ([facility] st Contact Info) Description 08/25/[address] [facility] MEDICINE [address] [place], [place] [phone] Alessandra Díaz DO [address] [place], [place] [phone] Appointment Request Social History Tobacco Use Types [...] a PAP appt. Please contact pt at [phone] documented in this encounter Plan of Treatment Upcoming Encounters Date Type Department Care Team (Late st Contact Info) Description 05/17/2025 2:30 PM EST Office Visit [facility] OPTOMETRY [address] [place] [address] TarkaChristina, OD [address] [place] [address] documented as of this encounter Visit Diagnoses Not on filedocumented in this encounter Care Teams Hand Salter Relationship Specialty Start Date End Date Alessandra Díaz DO [address] [place] [address] PCP - General Family Medicine 04/27/18 documented as of this encounter
--- OUTSIDE RECORDS SUMMARY | 2025-03-21 16:57 | XMS_ITS | Encounter Summary ---
Author Organization [employer] Address 75 [facility] 7t [place] [address] Care Team Providers Care Thermoscrew Operator Name Role Phone Alessandra Díaz DO Primary Care Provider [phone] Reason for Visit * Reason Comments Med Refill Encounter Details Date Type Department Care Team (Late st Contact Info) Description 08/30/2024 Refill [facility] MEDICINE [address] [place], [place] [phone] Alessandra Díaz DO [address] [place], [place] [phone] Social History Tobacco Use Types Packs/Day Years [...] Description 05/17/2025 2:30 PM EST Office Visit [facility] OPTOMETRY [address] [place], [place] [phone] Christina Geller, OD [address] [place] [address] documented as of this encounter Visit Diagnoses Not on filedocumented in this encounter Additional Health Concerns Assessment Noted Time PHQ-9 Depression Total Score: 0 11/12/19 24 12:12 PM EDT documented as of this encounter Care Teams Thermoscrew Operator Relationship Specialty Start Date End Date Alessandra Díaz DO [address] [place] [address] PCP - General Family Medicine 04/27/18 documented as of this encounter
--- OUTSIDE RECORDS SUMMARY | 2025-03-21 16:57 | XMS_ITS | Encounter Summary ---
Author Organization [employer] Address 75 [facility] 7t [place] [address] Care Team Providers Care Engineering Job Titles Name Role Phone Alessandra Díaz DO Primary Care Provider [phone] Reason for Visit * Reason Comments Med Refill Encounter Details Date Type Department Care Team (Late st Contact Info) Description 09/16/2024 Refill [facility] MEDICINE [address] [place], [place] [phone] Alessandra Díaz DO [address] [place], [place] [phone] Social History Tobacco Use Types Packs/Day Years [...] Description 05/17/2025 2:30 PM EST Office Visit [facility] OPTOMETRY [address] [place], [place] [phone] Christina Geller, OD [address] [place], [place] [phone] documented as of this encounter Visit Diagnoses Not on filedocumented in this encounter Additional Health Concerns Assessment Noted Time PHQ-9 Depression Total Score: 3 09/01/19 25 1:28 PM EDT documented as of this encounter Care Teams Engineering Job Titles Relationship Specialty Start Date End Date Alessandra Díaz DO [address] [place], [place] [phone] PCP - General Family Medicine 04/27/18 documented as of this encounter
--- OUTSIDE RECORDS SUMMARY | 2025-03-21 16:57 | XMS_ITS | Encounter Summary ---
Author Organization [employer] Address [address] [facility] 7t [place] [address] Care Team Providers Care Technology Coach Name Role Phone Alessandra Díaz DO Primary Care Provider [phone] Reason for Visit * Reason Comments Med Refill Encounter Details Date Type Department Care Team (Late st Contact Info) Description 06/17/2024 Refill [facility] MEDICINE 230 [place], [place] [phone] Alessandra Díaz DO [address] [place], [place] [phone] Social History Tobacco Use Types Packs/Day Years [...] Description 05/17/2025 2:30 PM EST Office Visit [facility] OPTOMETRY [address] [place], [place] [phone] Christina Geller, OD [address] [place], [place] [phone] documented as of this encounter Visit Diagnoses Not on filedocumented in this encounter Additional Health Concerns Assessment Noted Time PHQ-9 Depression Total Score: 0 11/12/19 24 12:12 PM EDT documented as of this encounter Care Teams Technology Coach Relationship Specialty Start Date End Date Alessandra Díaz DO [address] [place], [place] [phone] PCP - General Family Medicine 04/27/18 documented as of this encounter
--- OUTSIDE RECORDS SUMMARY | 2025-03-21 16:57 | XMS_ITS | Encounter Summary ---
Author Organization [employer] Address [address] [facility] [address] 7t [place] [address] Care Team Providers Care Validation Manager Name Role Phone Alessandra Díaz DO Primary Care Provider [phone]- [phone] Encounter Details Date Type Department Care Team ([facility] st Contact Info) Description 04/03/2023 Telephone [facility] MEDICINE 230 [place], [place] [phone] Alessandra Díaz DO 230 [place], [place] [phone] Social History Tobacco Use Types Packs/Day Years [...] Description 05/17/2025 2:30 PM EST Office Visit [facility] OPTOMETRY [address] [place], [place] [phone] Christina Geller, OD [address] [place] [address] documented as of this encounter Visit Diagnoses Not on filedocumented in this encounter Care Teams Validation Manager Relationship Specialty Start Date End Date Alessandra Díaz DO 230 [place], [place] [phone] PCP - General Family Medicine 04/27/18 documented as of this encounter
--- OUTSIDE RECORDS SUMMARY | 2025-03-21 16:57 | XMS_ITS | Encounter Summary ---
Author Organization [employer] Address 75 [facility] 7t [place] [address] Care Team Providers Care Underwriting Assistant Name Role Phone Alessandra Díaz DO Primary Care Provider [phone] Reason for Visit * Reason Comments Med Refill Encounter Details Date Type Department Care Team (Late st Contact Info) Description 09/16/2024 Refill [facility] MEDICINE 230 [place], [place] [phone] Alessandra Díaz DO [address] [place], [place] [phone] Social History Tobacco Use Types Packs/Day Years [...] Description 05/17/2025 2:30 PM EST Office Visit [facility] OPTOMETRY [address] [place], [place] [phone] Christina Geller, OD [address] [place] [address] documented as of this encounter Visit Diagnoses Not on filedocumented in this encounter Additional Health Concerns Assessment Noted Time PHQ-9 Depression Total Score: 3 09/01/19 25 1:28 PM EDT documented as of this encounter Care Teams Underwriting Assistant Relationship Specialty Start Date End Date Alessandra Díaz DO [address] [place] [address] PCP - General Family Medicine 04/27/18 documented as of this encounter
--- OUTSIDE RECORDS SUMMARY | 2025-03-21 16:57 | XMS_ITS | Encounter Summary ---
Author Organization [employer] Address 75 [facility] 7t [place] [address] Care Team Providers Care Pipe Organ Builder Name Role Phone JocelynAlessandra watkins Primary Care Provider [phone] Reason for Visit * Reason Comments Med Refill Encounter Details Date Type Department Care Team ([facility] st Contact Info) Description 07/21/2024 Refill [facility] MEDICINE [address] [place], [place] [phone] Name, MD Grey [address] [place], [place] [phone] Social History Tobacco Use Types Packs/Day Years [...] Description 05/17/2025 2:30 PM EST Office Visit [facility] OPTOMETRY [address] [place] [address] TarkaChristina, OD [address] [place] [address] documented as of this encounter Visit Diagnoses Not on filedocumented in this encounter Additional Health Concerns Assessment Noted Time PHQ-9 Depression Total Score: 0 11/12/19 24 12:12 PM EDT documented as of this encounter Care Teams Pipe Organ Builder Relationship Specialty Start Date End Date Alessandra Díaz DO [address] [place] [address] PCP - General Family Medicine 04/27/18 documented as of this encounter
--- OUTSIDE RECORDS SUMMARY | 2025-03-21 16:57 | XMS_ITS | Encounter Summary ---
Author Organization [employer] Address 75 [facility] 7t [place] [address] Care Team Providers Care Soap Maker Name Role Phone Arjun Alessandra Primary Care Provider [phone] Reason for Visit * Reason Comments Med Refill Encounter Details Date Type Department Care Team (Late st Contact Info) Description 09/28/[address] [facility] ADULT DENTAL [address] [place] [address] Ricardo Downs DDS [address] [place], [place] [phone] Social History Tobacco Use Types Packs/Day Years [...] 05/17/2025 2:30 PM EST Office Visit [facility] OPTOMETRY [address] [place], [place] [phone] Christina Geller, OD [address] [place] [address] documented as of this encounter Visit Diagnoses Not on filedocumented in this encounter Additional Health Concerns Assessment Noted Time PHQ-9 Depression Total Score: 2 09/28/19 25 1:46 PM EDT documented as of this encounter Care Teams Soap Maker Relationship Specialty Start Date End Date Alessandra Díaz DO [address] [place] [address] PCP - General Family Medicine 04/27/18 documented as of this encounter
--- OUTSIDE RECORDS SUMMARY | 2025-03-21 16:57 | XMS_ITS | Encounter Summary ---
Author Organization [employer] Address 75 [facility] 7t [place] [address] Care Team Providers Care Psychotherapist Social Worker Name Role Phone Jocelynroland Alessandra Primary Care Provider [phone] Reason for Visit * Reason Comments Med Refill Encounter Details Date Type Department Care Team (Late st Contact Info) Description 09/16/2024 Refill [facility] ADULT DENTAL [address] [place] [address] Ricardo Downs DDS 230 [place], [place] [phone] Social History Tobacco Use Types Packs/Day Years [...] Description 05/17/2025 2:30 PM EST Office Visit [facility] OPTOMETRY [address] [place], [place] [phone] Christina Geller, OD [address] [place] [address] documented as of this encounter Visit Diagnoses Not on filedocumented in this encounter Additional Health Concerns Assessment Noted Time PHQ-9 Depression Total Score: 3 09/01/19 25 1:28 PM EDT documented as of this encounter Care Teams Psychotherapist Social Worker Relationship Specialty Start Date End Date Alessandra Díaz DO [address] [place] [address] PCP - General Family Medicine 04/27/18 documented as of this encounter
--- OUTSIDE RECORDS SUMMARY | 2025-03-21 16:57 | XMS_ITS | Encounter Summary ---
Author Organization [email or web address] Address [address] [facility] 7t [place] [address] Care Team Providers Care Engineer Fishing Vessel Name Role Phone Alessandra Díaz DO Primary Care Provider [phone]- [phone] Encounter Details Date Type Department Care Team ([facility] st Contact Info) Description 04/12/2024 Telephone [facility] MEDICINE 230 [place], [place] [phone] Alessandra Díaz DO 230 [place], [place] [phone] Social History Tobacco Use Types Packs/Day Years [...] Description 05/17/2025 2:30 PM EST Office Visit [facility] OPTOMETRY [address] [place], [place] [phone] TarChristina daley, OD [address] [place] [address] documented as of this encounter Visit Diagnoses Not on filedocumented in this encounter Additional Health Concerns Assessment Noted Time PHQ-9 Depression Total Score: 0 11/12/19 24 12:12 PM EDT documented as of this encounter Care Teams Engineer Fishing Vessel Relationship Specialty Start Date End Date Alessandra Díaz DO 230 [place], [place] [phone] PCP - General Family Medicine 04/27/18 documented as of this encounter
--- OUTSIDE RECORDS SUMMARY | 2025-03-21 16:57 | XMS_ITS | Clinical Summary ---
Author Organization [email or web address] Address [address] [facility] 7t [place] [address] Care Team Providers Care Carbon Brusher Assembler Name Role Phone JocelynAlessandra watkins Primary Care Provider [phone] Allergies No known active allergies Medications * [...] per week. 1 kit 12/14/19 24 Active amLODIPine (Norvasc) 2.5 MG tablet Take 1 tablet (2.5 mg) by mouth Once per day. 30 tablet 11 5 2:39 PM EST 06/14/19 25 026 Active chlorhexidine (Peridex) 0.12 % solution Swish 15 mL morning and night for 1 minute. Spit, do not swallow. Do not eat or drink for 30 minutes following use. 473 mL 08/04/19 25 Active Eye Itch Relief 0.035 % solution PLACE 1 DROP INTO THE AFFECTED EYE(S) TWICE DAILY IN THE MORNING AND AT BEDTIME (ITCHY EYES) 10 mL 3 5 2:41 PM EST 10/11/19 25 Active D3 Super Strength 50 MCG (1999 UT) capsule TAKE 1 CAPSULE BY MOUTH EVERY DAY 90 capsule 1 11/11/19 25 Active cetirizine (ZyrTEC) 10 MG tablet TAKE 1 TABLET BY MOUTH EVERY DAY 90 tablet 3 5 5:10 PM EST 12/03/19 25 Active fluticasone furoate (Arnuity Ellipta) 200 MCG/ACT inhaler Inhale 1 puff Once per day. Rinse mouth with water after use to reduce aftertaste and incidence of candidiasis. Do not swallow. 1 each 11 5 5:10 PM EST 12/03/19 25 026 Active Diclofenac Sodium 1 % gel APPLY 2 GRAMS TOPICALLY TO AFFECTED AREA(S) TWICE DAILY NEEDED FOR PAIN 100 g 3 12/28/19 25 Active FLUoxetine (PROzac) 20 MG capsule TAKE 2 CAPSULES BY MOUTH EVERY DAY 60 capsule 3 5 5:10 PM EST 12/30/19 25 Active fluticasone (Flonase) 50 MCG/ACT nasal spray INSTILL 2 SPRAYS IN EACH NOSTRIL ONCE DAILY 48 g 3 01/07/20 25 Active SUMAtriptan (Imitrex) 25 MG tablet TAKE 1 TABLET BY MOUTH AT ONSET OF MIGRAINE. MAY REPEAT ONCE AFTER 2 HOURS IF NEEDED DO NOT EXCEED 2 DOSES IN 24 HOURS 9 tablet 3 5 5:10 PM EST 02/04/20 25 Active baclofen (Lioresal) 10 MG tabletIndicati ons:Muscle spasm TAKE 1 TABLET BY MOUTH THREE TIMES DAILY IN THE MORNING, AT NOON, AND AT BEDTIME NEEDED FOR MUSCLE SPASMS 60 tablet 2 5 2:41 PM EST 02/08/20 25 Active tolterodine LA (Detrol LA) 4 MG 24 hr capsule TAKE 1 CAPSULE BY MOUTH EVERY DAY 90 capsule 02/09/20 25 Active hydrOXYzine pamoate (Vistaril) 50 MG capsule TAKE 1 CAPSULE BY MOUTH EVERY SIX HOURS NEEDED FOR ANXIETY 60 capsule 3 5 5:10 PM EST 02/25/20 25 Active Ferrous Sulfate (iron) 325 (65 Fe) MG tablet TAKE 1 TABLET BY MOUTH EVERY DAY 90 tablet 3 02/29/20 25 Active Ascorbic Acid (vitamin C) 250 MG tablet TAKE 1 TABLET BY MOUTH EVERY DAY WITH IRON 90 tablet 3 02/29/20 25 Active acetaminophen (Tylenol 8 Hour) 650 MG ER tablet TAKE 1 TABLET BY MOUTH EVERY 8 HOURS NEEDED FOR MILD PAIN, DO NOT BREAK, CRUSH, DISSOLVE OR CHEW 40 tablet 1 5 5:10 PM EST 03/02/20 25 Active naproxen (Naprosyn) 500 MG tablet TAKE 1 TABLET BY MOUTH TWICE DAILY FOR MILD PAIN 30 tablet 1 5 5:10 PM EST 03/03/20 25 Active triamcinolone (Kenalog) 0.1 % cream MIX WITH CERAVE AND APPLY TOPICALLY TO AFFECTED AREA(S) TWICE DAILY DIRECTED FOR 28 DAYS 80 g 5 2:41 PM EST 03/09/20 25 Active Ventolin HFA 108 (90 Base) MCG/ACT inhaler INHALE 2 PUFFS BY MOUTH EVERY 6 HOURS NEEDED FOR WHEEZING OR SHORTNESS OF BREATH 18 g 1 03/14/20 25 Active FeroSul 325 (65 Fe) MG tablet TAKE 1 TABLET BY MOUTH EVERY DAY 90 tablet 3 02/17/20 24 025 Discontinued Ascorbic Acid (vitamin C) 250 MG tablet TAKE 1 TABLET BY MOUTH ONCE DAILY WITH IRON (FERROUS SULFATE) 90 tablet 3 02/17/20 24 025 Discontinued hydrOXYzine pamoate (Vistaril) 50 MG capsule Take 1 capsule (50 mg) by mouth every 6 (six) hours if needed for anxiety. TAKE 1 CAPSULE BY MOUTH EVERY 6 HOURS NEEDED FOR ANXIETY 60 capsule 3 12/30/19 25 025 Discontinued Ventolin HFA 108 (90 Base) MCG/ACT inhaler INHALE 2 PUFFS BY MOUTH EVERY 6 HOURS NEEDED FOR WHEEZING OR SHORTNESS OF BREATH 18 g 1 01/19/20 25 025 Discontinued acetaminophen (Tylenol 8 Hour) 650 MG ER tablet TAKE 1 TABLET BY MOUTH EVERY 8 HOURS NEEDED FOR MILD PAIN, DO NOT BREAK, CRUSH, DISSOLVE OR CHEW 40 tablet 1 02/03/20 25 025 Discontinued naproxen (Naprosyn) 500 MG tablet TAKE 1 TABLET BY MOUTH TWICE DAILY FOR FOR MILD PAIN 30 tablet 1 02/03/20 25 025 Discontinued triamcinolone (Kenalog) 0.1 % cream MIX WITH CERAVE AND APPLY TOPICALLY TO AFFECTED AREA(S) TWICE DAILY DIRECTED FOR 28 DAYS 80 g 02/04/20 25 025 Discontinued Active Problems Problem Noted Date Diagnosed Date Astigmatism 09/02/2024 Myopia 09/02/2024 Jennifer's pupil, 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 She opted to rs appt for [facility] and have all tests done at the time of appt and walked out of the exam room. I will schedule pelvic US. Patient left and didn't want to have vaginal self swab. I called [facility] office and she already had rs her appt for 09/25. Patient to continue 90d cycle OCP instead, switch to ortho evra patch(rx Last week) this month if bleeding doesn't stop at the time of last pill Encounters Date Type Department Care Team Description 03/13/2025 Refill [facility] [address] [place] [address] Alessandra Díaz, 03/08/2025 Refill [facility] [address] [place] [address] Alessandra Díaz, 03/03/2025 Refill [facility] [address] [place], [place] [phone] Alessandra Díaz, DO 03/02/2025 Refill [facility] [address], [place] [address] Alessandra Díaz, DO 02/27/2025 Refill [facility] [address], [place] [address] Alessandra Díaz, DO 02/24/2025 Refill [facility] [address], [place] [address] Alessandra Díaz, DO 02/07/2025 Refill [facility] [address], [place] [address] Anuja Interiano MD 02/07/2025 Refill C MEDICINE [address], [place] [address] Alessandra Díaz, DO Muscle spasm 02/03/2025 Refill [facility] [address], [place] [address] Alessandra Díaz, 02/03/2025 Refill [facility] [address], [place] [address] Alessandra Díaz, DO 02/02/2025 Refill [facility] [address], [place] [address] Alessandra Díaz, DO 02/01/2025 Refill [facility] [address], [place] [address] Alessandra Díaz, 01/31/[address] [facility] [address], [place] [address] Alessandra Díaz, Chart Prep 01/26/2025 Patient Outreach [facility] [address], [place] [address] Alessandra Díaz, Pre-visit Planning (SDOH screening completed on 08/16/2024) 01/24/2025 Travel 01/20/[address] [facility] [address], [place] [address] Alessandra Díaz DO Appointment Request 01/17/2025 Refill [facility] [address] [place] [address] Anuja Interiano MD 01/06/[address] [facility] [address] [place] [address] Anuja Interiano MD 01/06/[address] [facility] [address] [place] [address] Alessandra Díaz, 12/29/[address] [facility] [address] [place] [address] Alessandra Díaz, 12/28/2024 Patient Outreach [facility] [address] [place] [address] Alessandra Díaz, Care Coordination (C3 -[facility] Shea Galeana telephone call outreach) 12/27/2024 Patient Outreach [facility] [address] [place] [address] Alessandra Díaz DO Care Management (C3- F/U call) 12/27/[address] [facility] [address] [place] [address] Alessandra Díaz, 12/26/[address] [facility] [address] [place] [address] Alessandra Díaz, 12/24/[address] [facility] [address] [place] [address] Alessandra Díaz, 12/22/[address] [facility] [address] [place] [phone] Alessandra Díaz, Appointment Request from Last 3 Months Immunizations Immunization Administration [...] Description 05/17/2025 2:30 PM EST Office Visit [facility] OPTOMETRY [address] [place] [address] Christina Geller, OD [address] [place] [address] Health Maintenance Due Date Last Done Comments CT Colonography 1975 Colonoscopy 1975 Colorectal Cancer Screening 1975 Dental Prophylaxis 1975 FIT DNA/Cologuard 1975 FIT 1975 FOBT 1975 Sigmoidoscopy 1975 Family Planning (PISQ) 08/01/1990 Hepatitis A Vaccines (2 of 2 - Risk 2-dose series) 06/05/2006 12/03/2005 Dental Oral Exam 07/01/2012 01/01/2012 Mammogram 09/19/2019 09/18/2017 Dental X-Ray: Full Mouth 07/20/2023 07/18/2020, 09/09/2011 COVID-19 Vaccine ( season) 2024 10/05/2023, 05/06/2022, [...] Procedure Name Priority Date/Time Associated Diagnosis Comments HEPATITIS C AB W/REFL TO HCV RNA, [...] trigger Rash Healthcare maintenance BMI 50.0-59.9, adult (CMS/HCC) Encounter for screening mammogram for malignant neoplasm [...] AM EDT) Hepatitis C Antibody Nonreactive Nonreactive [facility] Comment:Antibodies to HCV no t detected; does not exclude early acuteHCV infection. Blood Venous blood specimen / Unknown 09/08/2024 11:31 AM EDT 09/08/2024 1:16 PM EDT Alessandra Díaz DO LAB BLOOD ORDERABLES Final R esult Performing Organization Address City/[facility] Co de Phone Number [facility] [address] [place] [phone] [phone] * HIV-1/2 Antigen and Antibodies, Fourth Generation, with Reflexes (09/08/2024 11:31 AM EDT) HIV AB/AG Nonreactive Nonreactive [facility] Comment:HIV-1 p24 Ag and/or HIV-1/HIV-2 Ab not detected.A test result that is nonreactive does not exclude thepossibility of exposure to or infection with HIV-1 and/orHIV-2. Nonreactive results in this assay for individualswith prior exposure to HIV-1 and/or HIV-2 may be due toantigen and antibody levels that are below the limit ofdetection of this assay.The [facility] HIV Ag/Ab Combo assay result andsupplemental assay results should be interpreted inconjunction with the patient's clinical presentation,history and other laboratory results. If the results areinconsistent with clinical evidence, additional testing issuggested to confirm the result. Blood Venous blood specimen / Unknown 09/08/2024 11:31 AM EDT 09/08/2024 1:16 PM EDT Alessandra Díaz DO LAB BLOOD ORDERABLES Final R esult Performing Organization Address City/[facility]/ZIP Co de Phone Number [facility] [address] [place] [address] [phone] * Lipid Panel, Standard (09/08/2024 11:30 AM EDT) Triglycerides 71 <150 mg/dL [facility] Comment:Desirable Triglyceri de: less than 150 mg/dLBorderline High Triglyceride 150-199 mg/dLHigh Triglyceride: 200-499 mg/dLVery High Triglyceride: greater than or equal to 5OO mg/dL Cholesterol 133 <200 mg/dL [facility] Comment:Desirable Cholestero l: less than 200 mg/dLBorderline High Cholesterol: 200-239 mg/dLHigh Cholesterol: greater than 239 mg/dL LDL Cholesterol Calculated 76 <100 mg/dL [facility] Comment:Desirable LDL: less than 100 mg/dLNear Optimal/Above Optimal LDL: 110- 129 mg/dLBorderline High LDL: 130-159 mg/dLHigh LDL: 160-189 mg/dLVery High LDL: greater than or equal to 190 mg/dL HDL Cholesterol 43 >40 mg/dL [facility] Comment:Desirable HDL: great er than 40 mg/dL Note: This HDL assay may give artificially low results in patients with liver disease. Blood Venous blood specimen / Unknown 09/08/2024 11:30 AM EDT 09/08/2024 1:16 PM EDT Alessandra Díaz DO LAB BLOOD ORDERABLES Final R esult [facility] [address] [place] [phone] * Thinprep PAP, HPV mRNA E6/E7 RFX HPV 16,18/45, Chlamydia/N. Gonorrhoeae (09/12/2022 12:00 AM EDT) Clinical Information: SCREENING [facility] [place] [facility] LMP: 08/09/22 [facility] [place] [facility] Prev. PAP: NONE GIVEN [employer] [place] [facility] Prev. BX: NONE GIVEN [facility] [place] [facility] SOURCE: None given [employer] Statement Of Adequacy: [employer] Comment: Satisfactory for evaluation. Endocervical/transformation zone component present. Interpretation/Re sult: Negative for intraepithelial lesion or malignancy. [employer] [place] [facility] [employer] Telephone Cleaner: Anuj Zymergen Comment: RMM, CT(ASCP) CT screening location: [address] [address] (Always Message) [facility] Comment: EXPLANATORY NOTE: The Pap is a [...] HPV nRNA E6/E7 Not Detected Not Detected [facility] [place] [facility] Comment: Methodology: Oil Field Pumper-Mediated Amplification This assay detects E6/E7 viral messenger RNA (mRNA) from 14 high-risk HPV types (16,18,31,33,35,39,45,51,52,56,58,59,66,68). Cervical sources are required for HPV testing. If a vaginal source from a patient who has had a total hysterectomy with removal of cervix was submitted, please contact the testing laboratory for alternative testing options. For additional information, please refer to http://[employer]Share.Spreadsave/faq/TXS152j3 (This link if provided for information/ educational purposes only.) Chlamydia trachomatis RNA, TMA, Urogenital NOT DETECTED NOT DETECTED [facility] [place] [facility]. Neisseria gonorrhoeae RNA, TMA, Urogenital NOT DETECTED NOT DETECTED [facility] [place] [facility] Comment [facility] Comment: The analytical performance characteristics of this assay, when used to test SurePath(TM) specimens have been determined by [employer]. The modifications have not been cleared or approved by the FDA. This assay has been validated pursuant to the CLIA regulations and is used for clinical purposes. For additional information, please refer to https://[employer]Share.Spreadsave/faq/BAU220 (This link is being provided for information/ educational purposes only.) 09/12/2022 09/15/2022 10: 04 AM EDT Narrative [facility] - 09/17/2022 4:23 PM EDT FASTING: UNKNOWN us Alessandra Díaz DO LAB PATHOLOGY ORDERABLES Fin al Result [facility] [address], [place] [address] [facility] [place] [facility] [address] [place] [address] * Hm Pap Smear (09/12/2022) HM Pap smear NIL HPV- us Historical Provider HEALTH MAINTENANCE Final Result * DIGITAL BILATERAL SCREEN 1 (09/18/2017 7:09 AM EDT) Anatomical Region Laterality Modality Breast Bilateral Mammography 09/18/2017 7:09 AM EDT Narrative 09/18/2017 7:11 AM EDT Refer to the Notes tab for result details [facility] Procedure: DIGITAL BILATERAL SCREEN 1 Procedure Note Provider, Margarette, - 07/19/2022 Refer to the Notes tab for result details [facility] Procedure: DIGITAL BILATERAL SCREEN 1 Alessandra Díaz DO IMG BI PROCEDURES Final Resu lt from Last 3 Months or Most Recently Relevant to Health Maintenance Insurance [facility] C3 DENTAL-[facility] MEDICAID STAND ADULT [facility] C3 Care Teams Carbon Brusher Assembler Relationship Specialty Start Date End Date Alessandra Díaz DO [address] [place] [address] PCP - General Family Medicine 04/27/18
--- OUTSIDE RECORDS SUMMARY | 2025-03-21 16:57 | XMS_ITS | Encounter Summary ---
Author Organization [employer] Address [address] [facility] 7t [place] [address] Care Team Providers Care Mobile Qa Tester Name Role Phone Jocelynroland Alessandra Primary Care Provider [phone] Reason for Visit * Reason Comments Med Refill Encounter Details Date Type Department Care Team (Late st Contact Info) Description 09/12/2024 Refill [facility] ADULT DENTAL [address] [place] [address] Ricardo Downs DDS [address] [place] [address] Social History Tobacco Use Types Packs/Day Years [...] Description 05/17/2025 2:30 PM EST Office Visit [facility] OPTOMETRY [address] [place], [place] [phone] Christina Geller, OD [address] [place] [address] documented as of this encounter Visit Diagnoses Not on filedocumented in this encounter Additional Health Concerns Assessment Noted Time PHQ-9 Depression Total Score: 3 09/01/19 25 1:28 PM EDT documented as of this encounter Care Teams Mobile Qa Tester Relationship Specialty Start Date End Date Alessandra Díaz DO [address] [place] [address] PCP - General Family Medicine 04/27/18 documented as of this encounter
--- OUTSIDE RECORDS SUMMARY | 2025-03-21 16:57 | XMS_ITS | Encounter Summary ---
Author Organization [employer] Address [address] [facility] 7 [place] [address] Care Team Providers Care Bisque Ware Dipper Name Role Phone Alessandra Díaz DO Primary Care Provider [phone] Encounter Details Date Type Department Care Team (Late st Contact Info) Description 04/08/2022 Telephone [facility] MEDICINE [address] [place] [address] Alessandra Díaz DO [address] [place] [address] Social History Tobacco Use Types Packs/Day Years [...] Description 05/17/2025 2:30 PM EST Office Visit [facility] OPTOMETRY [address] [place] [address] TarChristina daley, OD [address] [place] [address] documented as of this encounter Visit Diagnoses Not on filedocumented in this encounter Care Teams Bisque Ware Dipper Relationship Specialty Start Date End Date Alessandra Díaz DO [address] [place] [address] PCP - General Family Medicine 04/27/18 documented as of this encounter
--- OUTSIDE RECORDS SUMMARY | 2025-03-21 16:57 | XMS_ITS | Encounter Summary ---
Author Organization [employer] Address [address] [facility] 7t [place] [address] Care Team Providers Care Maintenance Groundskeeper Name Role Phone Alessandra Díaz DO Primary Care Provider [phone] Reason for Visit * Reason Comments Med Refill Encounter Details Date Type Department Care Team (Late st Contact Info) Description 10/03/[address] [facility] MEDICINE [address] [place] [address] Alessandra Díaz DO [address] [place], [place] [phone] Social History Tobacco Use Types Packs/Day Years [...] Description 05/17/2025 2:30 PM EST Office Visit [facility] OPTOMETRY [address] [place], [place] [phone] Christina Geller, OD [address] [place], [place] [phone] documented as of this encounter Visit Diagnoses Not on filedocumented in this encounter Additional Health Concerns Assessment Noted Time PHQ-9 Depression Total Score: 2 09/28/19 25 1:46 PM EDT documented as of this encounter Care Teams Maintenance Groundskeeper Relationship Specialty Start Date End Date Alessandra Díaz DO [address] [place], [place] [phone] PCP - General Family Medicine 04/27/18 documented as of this encounter
--- OUTSIDE RECORDS SUMMARY | 2025-03-21 16:57 | XMS_ITS | Encounter Summary ---
Author Organization [employer] Address [address] [facility] 7t [place] [address] Care Team Providers Care Key Account Executive Name Role Phone Alessandra Díaz DO Primary Care Provider [phone] Reason for Visit * Reason Comments Med Refill Encounter Details Date Type Department Care Team (Late st Contact Info) Description 08/11/2024 Refill [facility] MEDICINE [address] [place], [place] [phone] Alessandra Díaz DO [address] [place], [place] [phone] Social History Tobacco Use Types Packs/Day Years [...] Description 05/17/2025 2:30 PM EST Office Visit [facility] OPTOMETRY [address] [place], [place] [phone] Christina Geller, OD [address] [place], [place] [phone] documented as of this encounter Visit Diagnoses Not on filedocumented in this encounter Additional Health Concerns Assessment Noted Time PHQ-9 Depression Total Score: 0 11/12/19 24 12:12 PM EDT documented as of this encounter Care Teams Key Account Executive Relationship Specialty Start Date End Date Alessandra Díaz DO [address] [place], [place] [phone] PCP - General Family Medicine 04/27/18 documented as of this encounter
== END 2025-03-21 13:53 | disposition home or self-care (01) ==
LOC: HO.HPS 13:10
PROVIDERS: PCP Family Medicine; Visit Provider Internal Medicine Pulmonary Disease
DX: G47.33 Obstructive sleep apnea (adult) (pediatric) (principal); J96.11 Chronic respiratory failure with hypoxia
CPT/HCPCS: 94618; 99214

== ENCOUNTER → 2025-03-21 13:10 | Outpatient (BNVA) | payer MEDICAID, SELFPAY | PROVIDERS: PCP Family Medicine; Visit Provider Internal Medicine Pulmonary Disease | DX: G47.33 Obstructive sleep apnea (adult) (pediatric) (principal); J96.11 Chronic respiratory failure with hypoxia; Z99.81 Dependence on supplemental oxygen | CPT/HCPCS: 94618; 99212 ==